=== PATIENT | female | born 1945 | race African-American/Black ===

== ENCOUNTER 2019-06-16 16:30 | Outpatient (CLI) | payer MEDICARE, SELFPAY ==
--- NOTE | ~2019-06-16 | XR_ITS ---
EXAMINATION: XR hand RT min 3V, XR wrist RT min 3V EXAM DATE: 06/16/2019 17:15 (accession [id number]), 06/16/2019 17:16 (accession [id number]) INDICATION: No known recent injury provided at this time. Pain of the right hand. TECHNIQUE: Right hand frontal, lateral and oblique projections obtained and reviewed. Right wrist fro ntal, frontal with ulnar deviation, oblique and lateral projections obtained and reviewed. Comparison is made to prior examination from 10/19/2017. FINDINGS: Right metacarpal bones are unremarkable. Right wrist scapholunate joint space is maintain ed. There is mild to moderate first carpometacarpal primary osteoarthritis. Mild osteoarthritis at t he radiocarpal, interphalangeal joints. There are no acute fractures or dislocations identified. The re is no subcutaneous gas. The soft tissue is unremarkable. There are no radiopaque foreign bodies . Difficult to appreciate any significant interval change compared to 2018. IMPRESSION: Polyarticular right hand and wrist osteoarthritis, most advanced at the first carpometaca rpal joint. Reviewed, dictated and finalized at location A. IMPRESSION: Polyarticular right hand and wrist osteoarthritis, most advanced at the first carpometacarpal joint.
--- NOTE | ~2019-06-16 | XR_ITS ---
EXAMINATION: XR lumbar spine 2-3V EXAM DATE: 06/16/2019 17:15 INDICATION: Dorsalgia, history osteoarthritis. TECHNIQUE: Lumber spine frontal, lateral, lateral L5-S1 projections for interpretation. Comparison is made to prior examination from 11/10/2013. FINDINGS: There is 3 mm anterolisthesis L4 on L5 with mild to moderate loss of all mid lumbar verteb ral body heights. There is moderate loss at L1-2 and L5-S1. There is moderate lumbar facet arthropath y. Sacrum, sacroiliac joints, sacral arcuate lines are intact. Right hip replacement. Vertebral body heights relatively well-maintained. Paraspinal soft tissue is unremarkable. Compared to 2013, there has been some interval progression in disc disease and facet arthropathy. The grade 1 anterolisthesis L4 on L5 is unchanged. IMPRESSION: 1. Moderate lumbar spondylosis. Reviewed, dictated and finalized at location A.
--- NOTE | ~2019-06-16 | XR_ITS ---
EXAMINATION: XR shoulder RT min 2V EXAM DATE: 06/16/2019 17:15 INDICATION: No known recent injury provided at this time. Pain of the right shoulder. TECHNIQUE: The following right shoulder projections obtained: frontal projection with internal rotati on, frontal projection with external rotation, Grashey, and scapular Y view (4+ views). There is no prior study for comparison. FINDINGS: There is approximately 1 cm ossific density identified between the acromion and the marixa l head, could be sizable joint body or congenital acromial variant, ossicle. There is moderate glenoh umeral and acromioclavicular primary osteoarthritis. There are no acute fractures or dislocations gabriela ntified. There is no subcutaneous gas. There are no radiopaque foreign bodies. IMPRESSION: 1. Moderate right shoulder osteoarthritis. 2. 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 Reviewed, dictated and finalized at location A.
== END 2019-06-16 16:31 | disposition home or self-care (01) ==
LOC: ANHIMG 16:43
PROVIDERS: PCP Internal Medicine; Visit Provider Internal Medicine
DX: M79.643 Pain in unspecified hand (principal); M54.9 Dorsalgia, unspecified; M25.511 Pain in right shoulder; M25.539 Pain in unspecified wrist; M47.816 Spondylosis without myelopathy or radiculopathy, lumbar region; M19.011 Primary osteoarthritis, right shoulder; M19.041 Primary osteoarthritis, right hand
CPT/HCPCS: 72100; 73030; 73110; 73130

== ENCOUNTER 2019-10-12 11:00 | Outpatient (RCR) | payer MEDICARE, SELFPAY ==
--- NOTE | 2019-10-05 15:07 | PTOPEVAL ---
Thank you for referring Tereza Jerome to [facility].? The patient is scheduled to be seen for therapy? 1 x/week for 4 weeks. Please review, sign, date and return this plan of care BAILEY. I agree with and certify that the following plan of care is medically necessary. Referring Physician Date Admitting Provider: Attending Provider: Stevenson Grullon MD Referring Provider: *PT Outpatient Evaluation Start: 10/05/19 14:08 Freq: Status: Active Protocol: Document 10/05/19 14:08 [facility] (Rec: 10/05/19 14:49 [facility] [id number]) Therapy Assessment Status Assessment Status Assessment Status Evaluation Outpatient Past Medical History Past Medical History No Past Medical/Surgical History Patient/Family Denies Significant Past Medical/ Surgical History Evaluation Information Problem Diagnosis Bilateral shoulder OA Onset 2019 Additional Evaluation Detail Pt has difficulty gripping, performing supply chain manager, carrying, participating in recreational and social activities. Pt is unable to wash her back. Reports sleep disruptions secondary to pain. Subjective Information Has had pain on and off for Query Text:As Reported By Patient/ years in B shoulders however, Family recenlty her pain has increased over the past year. Has also had numbness and tingling of B UEs and R hand pain for a few years. Had injections in B shoulders one year ago by Dr. Juares which helps for a few months. Pt had to switch doctors for insurance and had a R shoulder injection [address] Grullon ; R shoulder and hand feels better. L > R. Reports numbness and tingling in B arms/hands that comes and goes . Takes Rinvoq for OA; hydrocodone and tylenol for pain relief. 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 States she will try her best to make
--- NOTE | 2019-10-12 11:50 | PCPTNOTE ---
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 Patient is unable to continue physical therapy due to caregiver responsibilities for her , financial reasons, as well as her sister recently breaking her leg. Patient reports todays visit will be her last visit due to above stated reasons. Patient has not returned for any further treatments since 10/12/2019, therefore she will be discharged at this time. Patient?s initial visit was on 10/05/2019 14:00 and she had a total of 2 visits. The goals have not been met. Thank you for referring this patient to [facility]. Please review, sign, date and return this discharge summary BAILEY. I have been updated about the patient's current status and I agree with discharge from the above service at this time. Referring Physician Date
== END 2019-10-19 07:54 | disposition home or self-care (01) ==
LOC: ANHPT 11:00
PROVIDERS: Visit Provider Orthopaedic Surgery
DX: M19.011 Primary osteoarthritis, right shoulder (principal); M19.012 Primary osteoarthritis, left shoulder
CPT/HCPCS: 97110; 97140; 97161

== ENCOUNTER 2019-10-20 09:23 | Outpatient (CLI) | payer MEDICARE, SELFPAY ==
--- NOTE | ~2019-10-20 | MM_ITS ---
EXAMINATION: MM screening [facility] BI w [facility]nor HISTORY: Screening mammogram TECHNIQUE: Craniocaudal and mediolateral oblique 3-D tomosynthesis images were obtained and synthetic 2-D images were generated. CAD analysis was submitted and interpreted. COMPARISON: 12/24/2018, 11/03/2016, 01/26/2013 BREAST PARENCHYMAL COMPOSITION: There are scattered areas of fibroglandular density. FINDINGS: There is no evidence of suspicious mass, calcification, or architectural distortion to sugg est malignancy in either breast. There has been no suspicious interval change. IMPRESSION: 1. No mammographic evidence of malignancy. 2. Recommend routine screening mammography in one year. BI-RADS Category 1: Negative Reviewed, dictated and finalized at location A.
--- NOTE | ~2019-10-20 | US_ITS ---
EXAMINATION: US axilla BI DATE: 10/20/2019 11:12 INDICATION: Local swelling, mass and lump at the bilateral axilla. TECHNIQUE: Multiple grayscale and Doppler ultrasound images of the left and right axilla were obtaine d. COMPARISON: None FINDINGS: No abnormal masses, fluid collections or lymphadenopathy identified at the right axilla. At the left axilla there is a 1.6 x 0.9 x 1.6 cm hypoechoic mass with posterior acoustic enhancement and without internal vascular flow on color Doppler. The mass is situated in the dermal fat within 1 mm of the sk in surface. IMPRESSION: 1. Normal ultrasound of the right axilla. 2. 1.6 cm mass at the left axilla within 1 mm of the skin surface. Location and appearance would favo r an epidermal cyst. Differential would include solid neoplasm however there is no evident internal v ascular flow on color Doppler to more specifically suggest this. Reviewed, dictated and finalized at location A. IMPRESSION: 1. Normal ultrasound of the right axilla. 2. 1.6 cm mass at the left axilla within 1 mm of the skin surface. Location and appearance would favor an epidermal cyst. Differential would include solid iram plasm however there is no evident internal vascular flow on color Doppler to mo re specifically suggest this.
== END 2019-10-20 09:24 | disposition home or self-care (01) ==
PROVIDERS: Visit Provider Nurse Practitioner
DX: Z12.31 Encounter for screening mammogram for malignant neoplasm of breast (principal); R22.33 Localized swelling, mass and lump, upper limb, bilateral
CPT/HCPCS: 76882; 77063; 77067

== ENCOUNTER 2019-11-01 07:29 | Outpatient (CLI) | payer MEDICARE, SELFPAY ==
[2019-11-01 17:02] LABS: SARS-CoV-2 RNA PCR Negative
== END 2019-11-01 07:30 | disposition home or self-care (01) ==
LOC: ANHCOVIDDT 07:29
PROVIDERS: Visit Provider Internal Medicine Gastroenterology
DX: Z01.812 Encounter for preprocedural laboratory examination (principal); Z20.828 Contact with and (suspected) exposure to other viral communicable diseases
CPT/HCPCS: 87635; C9803; U0003

== ENCOUNTER 2019-11-02 00:38 | Day surgery (SDC) | payer MEDICARE, SELFPAY ==
[2019-10-25 14:57] VITALS: BMI 35.9
[2019-11-02 07:02] VITALS: BP 125/62; PULSE 104; RESP 18; TEMP 35.9; O2SAT 98; BMI 36.8
--- NOTE | 2019-11-02 07:18 | WPDANESEPPF ---
Anes - Initial Pre Proc Eval Procedure: Operation Date: 11/02/19 08:00 Proposed Procedures p Colonoscopy - Zen Bai MD Date/Time: 11/02/19 07:18 Surgeon: Zen Bai MD Pre Op Diagnosis: diarrhea, family hx colon CA Patient Data Age: 74 Gender: F Height: 5 ft 3 in Weight: 92 kg Allergies Allergy/AdvReac Type Severity Reaction Status Date / Time erythromycin base Allergy Unknown Diarrhea Verified 10/25/19 14:49 Penicillins Allergy Unknown Rash Verified 10/25/19 14:49 Home Medications Medication Instructions Recorded Confirmed Type acetaminophen [Tylenol] 325 mg PO DAILY PRN 01/04/19 10/25/19 History folic acid 1 mg PO DAILY 01/04/19 10/25/19 History ondansetron HCl [Zofran] 4 mg PO Q6H PRN 01/04/19 10/25/19 History promethazine [Phenergan] 25 mg IM Q6H PRN 01/04/19 10/25/19 History vitamin B complex [B 1 tablet PO DAILY 01/04/19 10/25/19 History Complex-Vitamin B12] furosemide 40 mg tablet 40 mg PO DAILY #90 tablet 03/29/19 10/25/19 Rx losartan 100 mg tablet 100 mg PO DAILY #90 tablet 03/29/19 10/25/19 Rx levothyroxine 100 mcg tablet See Rx Instructions .ROUTE 07/06/19 10/25/19 Rx .COMPLEX #90 tablet trazodone 100 mg tablet 100 mg PO HS PRN #120 tablet 07/22/19 10/25/19 Rx leflunomide 20 mg tablet 20 mg PO DAILY #90 tablet 07/29/19 10/25/19 Rx pregabalin 100 mg capsule 100 mg PO BID #180 cap 08/05/19 10/25/19 Rx metformin 1,000 mg tablet 1,000 mg PO BID #180 tablet 08/25/19 10/25/19 Rx duloxetine 60 mg capsule,delayed See Rx Instructions .ROUTE 09/05/19 10/25/19 Rx release .COMPLEX #60 each omega-3 fatty acids 1,000 mg 1,000 mg PO DAILY #90 cap 09/27/19 10/25/19 Rx capsule potassium chloride 10 mEq See Rx Instructions .ROUTE 10/10/19 10/25/19 Rx tablet,extended release .COMPLEX #90 tablet hydrocodone 5 mg-acetaminophen 325 1 tablet PO TID PRN #60 tablet 10/21/19 10/25/19 Rx mg tablet atorvastatin 10 mg tablet 10 mg PO DAILY #90 tablet 10/25/19 Rx dapagliflozin [Farxiga] 5 mg PO DAILY 10/25/19 10/25/19 History ferrous sulfate 325 mg PO TID 10/25/19 10/25/19 History upadacitinib [Rinvoq] 15 mg PO DAILY 10/25/19 10/25/19 History alprazolam 0.5 mg tablet 0.5 mg PO BID PRN #60 tablet 10/27/19 Rx Patient hx anesthesia problems: none Family hx anesthesia problems: none PMFSH Past Medical History Medical History Adhesive capsulitis of right shoulder Anemia Anxiety Arthritis Bilateral shoulder pain Bilateral shoulder region arthritis BMI 38.0-38.9,adult Depression Diabetes a1c=6.9 (04/05/19) Fibromyalgia Gastric ulcer without hemorrhage or perforation Generalized osteoarthritis of multiple sites Hemoglobin A1c less than 7.0% 6.9 on 04/05/19 Hypertension Lumbar and sacral arthritis Mass of both axillae Osteoarthritis of left knee Screening for breast cancer Seronegative rheumatoid arthritis of both hands Stroke Surgical History Surgical History H/O cataract extraction H/O elbow surgery H/O: hysterectomy History of carpal tunnel release History of hip replacement 03/2018 History of knee surgery 12/2013 Dr. Peña Hx of cholecystectomy Family History Family History Father Hypertension Family history of diabetes mellitus in first degree relative Mother Hypertension Other Diabetes mellitus Family history of cardiovascular disease Family history of malignant neoplasm Social History Social History Smoking status: Former smoker Smoking end date: 02/23/86 Alcohol intake: current Substance use type: does not use Living arrangements: with family Additional living arrangements comments: Sexual Orientation (if Verbalized by the Patient): Straight or Heterosexual Spiritual care concerns: No
[2019-11-02 07:19] LABS: Glucose Point of Care 149 (65-105)
[2019-11-02] MEDS: LACTATED RINGERS 1,000 ML 150 ML IV CONT (07:21)
--- NOTE | 2019-11-02 07:26 | PM.HPGS ---
History of Present Illness History of Present Illness Consent: Risks, benefits, and alternatives have been discussed and questions answered. Patient agrees to proceed with procedure. Chief complaint: diarrhea, family hx colon CA Narrative: Tereza Jerome is a 74 year old female here for investigation of persistent diarrhea. [facility] Past Medical History Medical History Adhesive capsulitis of right shoulder Anemia Anxiety Arthritis Bilateral shoulder pain Bilateral shoulder region arthritis BMI 38.0-38.9,adult Depression Diabetes a1c=6.9 (04/05/19) Fibromyalgia Gastric ulcer without hemorrhage or perforation Generalized osteoarthritis of multiple sites Hemoglobin A1c less than 7.0% 6.9 on 04/05/19 Hypertension Lumbar and sacral arthritis Mass of both axillae Osteoarthritis of left knee Screening for breast cancer Seronegative rheumatoid arthritis of both hands Stroke Surgical History Surgical History H/O cataract extraction H/O elbow surgery H/O: hysterectomy History of carpal tunnel release History of hip replacement 03/2018 History of knee surgery 12/2013 Dr. Peña Hx of cholecystectomy Family History Family History Father Hypertension Family history of diabetes mellitus in first degree relative Mother Hypertension Other Diabetes mellitus Family history of cardiovascular disease Family history of malignant neoplasm Social History Social History Smoking status: Former smoker Smoking end date: 02/23/86 Alcohol intake: current Substance use type: does not use Living arrangements: with family Additional living arrangements comments: Sexual Orientation (if Verbalized by the Patient): Straight or Heterosexual Spiritual care concerns: No Meds Home Medications and Allergies Home Medications Medication Instructions Recorded Confirmed Type acetaminophen [Tylenol] 325 mg PO DAILY PRN 01/04/19 10/25/19 History folic acid 1 mg PO DAILY 01/04/19 10/25/19 History ondansetron HCl [Zofran] 4 mg PO Q6H PRN 01/04/19 10/25/19 History promethazine [Phenergan] 25 mg IM Q6H PRN 01/04/19 10/25/19 History vitamin B complex [B 1 tablet PO DAILY 01/04/19 10/25/19 History Complex-Vitamin B12] furosemide 40 mg tablet 40 mg PO DAILY #90 tablet 03/29/19 10/25/19 Rx losartan 100 mg tablet 100 mg PO DAILY #90 tablet 03/29/19 10/25/19 Rx levothyroxine 100 mcg tablet See Rx Instructions .ROUTE 07/06/19 10/25/19 Rx .COMPLEX #90 tablet trazodone 100 mg tablet 100 mg PO HS PRN #120 tablet 07/22/19 10/25/19 Rx leflunomide 20 mg tablet 20 mg PO DAILY #90 tablet 07/29/19 10/25/19 Rx pregabalin 100 mg capsule 100 mg PO BID #180 cap 08/05/19 10/25/19 Rx metformin 1,000 mg tablet 1,000 mg PO BID #180 tablet 08/25/19 10/25/19 Rx duloxetine 60 mg capsule,delayed See Rx Instructions .ROUTE 09/05/19 10/25/19 Rx release .COMPLEX #60 each omega-3 fatty acids 1,000 mg 1,000 mg PO DAILY #90 cap 09/27/19 10/25/19 Rx capsule potassium chloride 10 mEq See Rx Instructions .ROUTE 10/10/19 10/25/19 Rx tablet,extended release .COMPLEX #90 tablet hydrocodone 5 mg-acetaminophen 325 1 tablet PO TID PRN #60 tablet 10/21/19 10/25/19 Rx mg tablet atorvastatin 10 mg tablet 10 mg PO DAILY #90 tablet 10/25/19 Rx dapagliflozin [Farxiga] 5 mg PO DAILY 10/25/19 10/25/19 History ferrous sulfate 325 mg PO TID 10/25/19 10/25/19 History upadacitinib [Rinvoq] 15 mg PO DAILY 10/25/19 10/25/19 History alprazolam 0.5 mg tablet 0.5 mg PO BID PRN #60 tablet 10/27/19 Rx Allergies Allergy/AdvReac Type Severity Reaction Status Date / Time erythromycin base Allergy Unknown Diarrhea Verified 10/25/19 14:49 Penicillins Allergy Unknown Rash Verified 10/25/19 14:49 Vital Signs Vital Signs - 24
[2019-11-02 08:10] VITALS: BP 101/62; PULSE 83; RESP 17; O2SAT 95
[2019-11-02 08:20] VITALS: BP 98/58; PULSE 81; RESP 25; O2SAT 98
[2019-11-02 08:30] VITALS: BP 110/66; PULSE 84; RESP 17; O2SAT 98
== END 2019-11-02 08:59 | disposition home or self-care (01) ==
PROVIDERS: Visit Provider Internal Medicine Gastroenterology
PROC: 0DJD8ZZ Inspection of Lower Intestinal Tract, Via Natural or Artificial Opening Endoscopic (ICD-10-PCS; CPT 45378; principal; 2019-11-02 08:00)
DX: Z12.11 Encounter for screening for malignant neoplasm of colon (principal); K57.30 Diverticulosis of large intestine without perforation or abscess without bleeding; Z80.0 Family history of malignant neoplasm of digestive organs; I10 Essential (primary) hypertension; E11.9 Type 2 diabetes mellitus without complications; M79.7 Fibromyalgia; D64.9 Anemia, unspecified; F41.8 Other specified anxiety disorders; K27.9 Peptic ulcer, site unspecified, unspecified as acute or chronic, without hemorrhage or perforation; Z79.84 Long term (current) use of oral hypoglycemic drugs; Z87.891 Personal history of nicotine dependence; E66.9 Obesity, unspecified; Z68.36 Body mass index [BMI] 36.0-36.9, adult
CPT/HCPCS: G0105; J2704; J7120

== ENCOUNTER 2019-12-07 12:30 | Outpatient (RCR) | payer MEDICARE, SELFPAY ==
--- NOTE | 2019-11-07 14:06 | PTOPEVAL ---
Thank you for referring Tereza Jerome to [facility].? The patient is scheduled to be seen for therapy? 1 x/week for 6-8 weeks. Please review, sign, date and return this plan of care BAILEY. I agree with and certify that the following plan of care is medically necessary. Referring Physician Date Attending Provider: Stevenson Grullon MD Referring Provider: *PT Outpatient Evaluation Start: 11/07/19 12:41 Freq: Status: Active Protocol: Document 11/07/19 12:41 [facility] (Rec: 11/07/19 13:38 [facility] [id number]) Therapy Assessment Status Assessment Status Assessment Status Evaluation Outpatient Past Medical History Past Medical History Source of Past Medical History Patient,Recalled from Previous Visit, Confirmed with Patient /Family Neurological History Hx Cerebrovascular Accident (CVA) Yes: 2016- no residual Cardiovascular History Hx Hypercholesterolemia Yes Hx Hypertension Yes Respiratory History Hx Respiratory Disorders No Significant History Gastrointestinal History Hx Cholecystectomy Yes Hx Polyps Yes: colon Hx Ulcer Yes: gastric 2017 Genitourinary History Hx Genitourinary Disorders No Significant History Musculoskeletal History Hx Joint Replacement Yes: right knee 2007;right hip 2017 Hx Other Musculoskeletal Disorders Yes: shoulder pain Hematological History Hx Anemia Yes: stefani Endocrine History Hx Diabetes Yes Hx Hypothyroidism Yes HEENT History Hx Glaucoma Yes: eye drops Integumentary History Hx Skin Disorders No Significant History Reproductive History Hx Hysterectomy Yes Psychosocial History Hx Anxiety Yes Pain History Has Past Pain Affected Your Daily Life Yes History of Long-Term Prescription Pain Yes Medication Use (Opiates) Anesthesia History Hx Anesthesia Reactions No Significant History Other History Hx Implanted Device Yes: right total knee and right total hip Evaluation Information Problem Diagnosis back pain Onset years Cause primary caregiver of . Additional Evaluation Detail recently received therapy to address shoulder pain. Improved following an injections She wears a back brace with community walking, transfers and carrying for her or if the pain has increased. Subjective I
--- NOTE | 2019-12-07 15:05 | PTOPEVAL ---
Thank you for referring Tereza Jerome to [facility].? The patient is scheduled to be seen for therapy? 1 x/week for 4-6 weeks. Please review, sign, date and return this plan of care BAILEY. I agree with and certify that the following plan of care is medically necessary. Referring Physician Date Attending Provider: Stevenson Grullon MD Referring Provider: *PT Outpatient Evaluation Start: 11/07/19 12:41 Freq: Status: Active Protocol: Document 12/07/19 12:32 [facility] (Rec: 12/07/19 13:23 [facility] [id number]) Therapy Assessment Status Assessment Status Assessment Status Re-evaluation Evaluation Information Problem Diagnosis back pain Onset years Cause primary caregiver of . Additional Evaluation Detail recently received therapy to address shoulder pain. Improved following an injections She wears a back brace with community walking, transfers and carrying for her or if the pain has increased. She is the primary caregiver for her . Subjective Information REports the mechanical lift Query Text:As Reported By Patient/ for her has been fixed Family making transfers at home better. She has assistance during the day with care, but perform ADL's at night by herself. States she is performing her HEP especially the stretching. She has increased pain with prolonged standing > 15 min or prolonged sitting. She wakes at night due to pain. She cont to have increased pain with negotiating steps. She uses a cane intermittently based on pain and distance of the walking. She applies heat for the pain and use of pain medication to manage her pain at home. Pain Assessment Timing of Pain Assessment Timing of Pain Assessment Re-assessment Pain Scale Pain Scale Used Numeric (1 - 10) Self Report Pain Assessment Bilateral Lower Back Reported Pain Level 5 Pain Description Aching,Burning,Sharp,Tightness Pain Frequency
--- NOTE | 2020-01-11 12:41 | PCPTNOTE ---
Patient did not show up for scheduled appointment this date due to she forgot. Spoke with pt regarding her status, her exercise and DC skilled therapy services at this time.
--- NOTE | 2020-01-11 12:42 | PCPTNOTE ---
Admitting Provider: Attending Provider: Stevenson Grullon MD Patient:Tereza Jerome Date of :1945 Discharge Note Patient has not returned for any further treatments since 12/07/2019, therefore she will be discharged at this time. She had cancelled her follow-up visits due to being the primary caregiver for her . Patient?s initial visit was on 11/07/2019 12:30 and she had a total of 5 visits. The goals have been partially met. Thank you for referring this patient to [facility]. Please review, sign, date and return this discharge summary BAILEY. I have been updated about the patient's current status and I agree with discharge from the above service at this time. Referring Physician Date
== END 2020-01-12 08:48 | disposition home or self-care (01) ==
LOC: ANHPT 12:30
PROVIDERS: Visit Provider Orthopaedic Surgery
DX: M47.819 Spondylosis without myelopathy or radiculopathy, site unspecified (principal)
CPT/HCPCS: 97014; 97110; 97140; 97162; G0283

== ENCOUNTER → 2019-12-20 09:18 | Outpatient (REF) | payer MEDICARE, SELFPAY | LOC: ANHLAB 09:18 | PROVIDERS: PCP Internal Medicine; Visit Provider Nurse Practitioner | DX: L72.3 Sebaceous cyst (principal) | CPT/HCPCS: 88304 ==

== ENCOUNTER → 2020-03-02 09:54 | Outpatient (CLI) | payer MEDICARE, SELFPAY ==
--- NOTE | ~2020-03-02 | US_ITS ---
US renal BI 03/02/2020 10:28 Procedure: Realtime transabdominal ultrasound of the kidneys and bladder. Indication: Abnormal renal function Comparison: No prior studies for comparison. Findings: Renal echotexture is normal bilaterally without hydronephrosis, contour deforming mass or r enal calculus. The right kidney measures 9 cm and left kidney measures 8.7 cm. Bladder within normal limits. Impression: 1: Unremarkable renal ultrasound. No stones, masses or hydronephrosis. Reviewed, dictated and finalized at location A. OSOFT BI ARCHITECT Impression: 1: Unremarkable renal ultrasound. No stones, masses or hydronephrosis.
== END ==
PROVIDERS: PCP Internal Medicine; Visit Provider Internal Medicine Nephrology
DX: R94.4 Abnormal results of kidney function studies (principal); E11.29 Type 2 diabetes mellitus with other diabetic kidney complication; I12.9 Hypertensive chronic kidney disease with stage 1 through stage 4 chronic kidney disease, or unspecified chronic kidney disease; N18.9 Chronic kidney disease, unspecified
CPT/HCPCS: 76775

== ENCOUNTER → 2020-03-27 10:21 | Outpatient (CLI) | payer MEDICARE, SELFPAY ==
--- NOTE | ~2020-03-27 | MR_ITS ---
EXAMINATION: MR lumbar spine wo con DATE: 03/27/2020 10:53 INDICATION: Low back pain. TECHNIQUE: Magnetic resonance imaging (MRI) of the lumbar spine was performed without intravenous con trast. Sequences included sagittal T2-weighted FSE, sagittal T2-weighted FS FSE, sagittal T1-weighted FSE, and axial T2-weighted FSE. COMPARISON: Lumbar spine MRI 02/25/2017 FINDINGS: There is 10 degrees dextroscoliosis of thoracolumbar spine. There is 3 mm anterolisthesis o f L3 on L4 and L4 on L5. Vertebral body heights are normal. There is severely decreased disc height a t L1-L2, mildly decreased disc height at L2-L3, moderately decreased disc height at L3-L4, and mildly decreased disc height at L4-L5 and L5-S1. The distal spinal cord signal intensity is normal. The con us medullaris is at T12-L1. The following disc levels are specifically discussed: L1-L2: The disc is bulging and has an annular fissure. There is severe right and moderate left facet joint osteoarthritis. There is moderate bilateral neural foraminal stenosis. There is mild central ca nal stenosis. L2-L3: The disc is bulging with superimposed right central extrusion. There is severe bilateral facet joint osteoarthritis. There is mild bilateral neural foraminal stenosis. There is mild central canal stenosis. L3-L4: The disc is bulging and has an annular fissure. There is severe bilateral facet joint osteoart hritis. There is mild bilateral neural foraminal stenosis. There is mild central canal stenosis. L4-L5: The disc does not extend beyond the endplate margin. There is ankylosis of the facet joints wi th moderate hypertrophy. There is mild right neural foraminal stenosis. There is no central canal noemy nosis. L5-S1: The disc is bulging. There is severe right and moderate left facet joint osteoarthritis. There is mild bilateral neural foraminal stenosis. There is mild central canal stenosis. IMPRESSION: 1. Severe lumbar spondylosis, worsened from 02/25/2017. 2. Thoracolumbar dextroscoliosis. Reviewed, dictated and finalized at location A. P CUTTER
== END ==
PROVIDERS: Visit Provider Nurse Practitioner Family
DX: M47.896 Other spondylosis, lumbar region (principal)
CPT/HCPCS: 72148

== ENCOUNTER → 2020-04-05 09:07 | Outpatient (CLI) | payer MEDICARE, SELFPAY ==
--- NOTE | ~2020-04-05 | US_ITS ---
EXAMINATION: US soft tissue head and neck DATE: 04/05/2020 09:25 INDICATION: Generalized enlarged lymph nodes of the head and neck. TECHNIQUE: Multiple grayscale and Doppler ultrasound images of the neck were obtained. COMPARISON: Cervical spine MRI 12/20/2017 FINDINGS: There is no abnormal mass or lymphadenopathy in the right neck in the patient's area of con cern. IMPRESSION: 1. No abnormal mass or lymphadenopathy in the right neck in the patient's area of concern. Reviewed, dictated and finalized at location A. ER MACHINE OPERATOR
== END ==
PROVIDERS: PCP Internal Medicine; Visit Provider Nurse Practitioner
DX: R59.1 Generalized enlarged lymph nodes (principal)
CPT/HCPCS: 76536

== ENCOUNTER → 2020-06-05 10:55 | Outpatient (CLI) | payer MEDICARE, SELFPAY ==
--- NOTE | ~2020-06-05 | DEXA_ITS ---
Bone Density Report Name: Tereza Jerome Age: 75 Sex: Female Ethnicity: Black Date of : 1945 Indication: postmenopausal; screening for osteoporosis; parental hip fracture; height loss; hysterectomy; rheumatoid arthritis; Referring Provider: Gabrielle Renteria Study: Bone densitometry was performed. Exam Date: June 05, 2020 Accession number: [id number] Bone Density: Region BMD T-score Z-score Classification AP Spine (L3, L4) 1.047 -0.5 1.3 Normal Femoral Neck (Left) 0.700 -1.3 -0.2 Osteopenia Total Hip (Left) 0.905 -0.3 0.4 Normal World Health Organization criteria for BMD impression classify patients as: Normal (T-score at or above -1.0), Osteopenia (T-score between -1.0 and -2.5), or Osteoporosis (T-score at or below -2.5). 10-year Fracture Risk(1): Major Osteoporotic Fracture 8.6% Hip Fracture 3.5% Reported Risk Factors: [place] (Black), Neck BMD=0.700, BMI=39.9, parental fracture, rheumatoid arthritis (1) FRAX(R) Version 3.08. Fracture probability calculated for an untreated patient. Fracture probability may be lower if the patient has received treatment. Previous Exams: Region Exam Age BMD T-score BMD Change BMD Change Date g/cm2 vs Baseline vs Previous AP Spine(L3, L4) 06/05/2020 75 1.047 -0.5 -0.102* -0.102* 04/13/2015 70 1.149 0.4 Total Hip(Left) 06/05/2020 75 0.905 -0.3 -0.092* -0.092* 04/13/2015 70 0.997 0.4 *Denotes significance at 95% confidence level, LSC for AP Spine = 0.022 g/cm2, LSC for Total Hip = 0.027 g/cm2 Clinical Information Provided by Patient: Parent has had a hip fracture Has rheumatoid arthritis Has the following medical conditions: Hysterectomy Patient maximum height was 64 Menopause Age: 43 Does not regularly consume dairy products Drinks caffeinated beverages Onset of menses at age 12 Number of children 1 Impression: The patient has low bone mass, based on the Left Femoral Neck T-score. The patient has an estimated ten-year risk of hip fracture of 3.5% and an estimated ten-year risk of major fracture of 8.6%, based on the WHO FRAX algorithm. The patient has risk factors, including: parental hip fracture. The BMD for the AP Spine(L3, L4) decreased, changing by -0.102 since the last DXA exam. The BMD for the Total Hip(Left) decreased, changing by -0.092 since the last DXA exam. Discussion: BONE DENSITY IS LOW AT ONE OR MORE SKELETAL SITES. THE PATIENT'S BMD AND CLINICAL RISK FACTORS CONTRIBUTE TO THIS PATIENT'S INCREASED RISK OF FRACTURE.
== END ==
PROVIDERS: PCP Internal Medicine; Visit Provider Nurse Practitioner
DX: N95.9 Unspecified menopausal and perimenopausal disorder (principal); M85.852 Other specified disorders of bone density and structure, left thigh
CPT/HCPCS: 77080

== ENCOUNTER 2020-07-20 10:46 | Outpatient (CLI) | payer MEDICARE, SELFPAY ==
--- NOTE | ~2020-07-20 | US_ITS ---
EXAMINATION: US venous doppler UE DATE: 07/20/2020 11:31 INDICATION: Upper limb swelling. TECHNIQUE: Grayscale ultrasound images without and with compression and Doppler ultrasound images of the bilateral upper extremity veins were obtained. COMPARISON: None. FINDINGS: The visualized portions of the right internal jugular vein, subclavian vein, axillary vein, brachial veins, basilic vein, cephalic vein, radial vein, and ulnar vein are patent. The visualized portions of the left internal jugular vein, subclavian vein, axillary vein, brachial v eins, basilic vein, cephalic vein, radial vein, and ulnar vein are patent. IMPRESSION: 1. No deep venous thrombosis. Reviewed, dictated and finalized at location A.
== END 2020-07-20 10:47 | disposition home or self-care (01) ==
PROVIDERS: PCP Internal Medicine; Visit Provider Nurse Practitioner
DX: M79.89 Other specified soft tissue disorders (principal)
CPT/HCPCS: 93970

== ENCOUNTER → 2020-07-20 12:36 | Outpatient (CLI) | payer MEDICARE, SELFPAY ==
--- NOTE | ~2020-07-20 | XR_ITS ---
EXAMINATION:XR_CERV2-3V_CR DATE: 07/20/2020 13:06 INDICATION: Cervicalgia TECHNIQUE: AP, lateral, lateral swimmers and odontoid views of the cervical spine are provided. COMPARISON: 06/05/2017 FINDINGS: Alignment is normal. The odontoid is intact. No fracture is identified. The vertebral body heights are normal. There is mild loss of intervertebral disc space height at C5-6. There is moderate to severe multilevel facet and uncovertebral joint osteoarthritis. Prevertebral soft tissues are nor mal. IMPRESSION: 1. Moderate spondylosis without acute findings or significant interval change. Reviewed, dictated and finalized at location B.
--- NOTE | ~2020-07-20 | XR_ITS ---
EXAMINATION: XR shoulder RT min 2V DATE: 07/20/2020 13:07 INDICATION: Right shoulder pain. TECHNIQUE: 4 views of right shoulder were obtained. COMPARISON: Right shoulder radiographs 09/21/2019 FINDINGS: Bone alignment is normal. No fracture. There is severe osteoarthritis of acromioclavicular joint and glenohumeral joint. IMPRESSION: 1. Polyarticular osteoarthritis. Reviewed, dictated and finalized at location A.
== END ==
PROVIDERS: Visit Provider Nurse Practitioner
DX: M47.812 Spondylosis without myelopathy or radiculopathy, cervical region (principal); M19.011 Primary osteoarthritis, right shoulder
CPT/HCPCS: 72040; 73030

== ENCOUNTER 2020-08-03 10:02 | Outpatient (CLI) | payer MEDICARE, SELFPAY ==
--- NOTE | 2020-08-03 10:07 | EST_ITS ---
Patient Info Name: Tereza Jerome Age: 75 years : 1945 Gender: Female Ht: 63 in Wt: 215 lbs BSA: 2.13 m2 Exam Date: 08/03/2020 10:15 AM Exam Location: [facility] Stress Patient Status: Outpatient Admit Date: 08/03/2020 Staff Ordering Physician: Gabrielle Renteria Attending Provider: Gabrielle Renteria Exercise Technologist: Joleen Candelario RDCS Exercise Physician: Cayetano Garcia DO Exam Type: CA stress test treadmill Study Info Indications R00.2 - Palpitations A treadmill exercise stress test was performed. Summary 1. 1. Negative Bernardo exercise stress test for ischemic ST changes by ECG criteria. 2. 2. Poor functional capacity, achieving 4 METs of workload. 3. 3. Rapid HR response to exercise. 4. 4. Appropriate HR recovery at 1 minute post exercise. 5. 5. Baseline hypertension. 6. 6. No imaging with stress testing. 7. 7. Patient informed of the above results. Protocol: Bernardo Stress ECG Details Stage: REST Duration (min): 9 min : 8 sec Speed (mph): 0.0 Grade (%): 0 HR (bpm): 83 SBP (mmHg): 149 DBP (mmHg): 87 METS: --- Stage: REST Duration (min): 19 min : 8 sec Speed (mph): 0.0 Grade (%): 0 HR (bpm): 80 SBP (mmHg): 149 DBP (mmHg): 87 METS: --- Stage: STAGE 1 Duration (min): 1 min : 0 sec Speed (mph): 1.7 Grade (%): 10 HR (bpm): 114 SBP (mmHg): 149 DBP (mmHg): 87 METS: --- Stage: STAGE 1 Duration (min): 1 min : 40 sec Speed (mph): 1.7 Grade (%): 10 HR (bpm): 129 SBP (mmHg): 149 DBP (mmHg): 87 METS: --- Stage: RECOVERY Duration (min): 0 min : 19 sec Speed (mph): 0.0 Grade (%): 0 HR (bpm): 134 SBP (mmHg): 149 DBP (mmHg): 87 METS: --- Stage: RECOVERY Duration (min): 1 min : 19 sec Speed (mph): 0.0 Grade (%): 0 HR (bpm): 124 SBP (mmHg): 149 DBP (mmHg): 87 METS: --- Stage: RECOVERY Duration (min): 2 min : 19 sec Speed (mph): 0.0 Grade (%): 0 HR (bpm): 85 SBP (mmHg): 149 DBP (mmHg): 87 METS: --- Stage: RECOVERY Duration (min): 3 min : 19 sec Speed (mph): 0.0 Grade (%): 0 HR (bpm): 78 SBP (mmHg): 189 DBP (mmHg): 79 METS: --- Stage: RECOVERY Duration (min): 4 min : 19 sec Speed (mph): 0.0 Grade (%): 0 HR (bpm): 91 SBP (mmHg): 189 DBP (mmHg): 79 METS: --- Stage: RECOVERY Duration (min): 5 min : 19 sec Speed (mph): 0.0 Grade (%): 0 HR (bpm): 102 SBP (mmHg): 188 DBP (mmHg): 82 METS: --- Stage: RECOVERY Duration (min): 6 min : 19 sec Speed (mph): 0.0 Grade (%): 0 HR (bpm): 89 SBP (mmHg): 188 DBP (mmHg): 82 METS: --- Stage: RECOVERY Duration (min): 7 min : 19 sec Speed (mph): 0.0 Grade (%): 0 HR (bpm): 86 SBP (mmHg): 183 DBP (mmHg): 77 METS: --- Stage: RECOVERY Duration (min): 8 min
--- NOTE | 2020-08-07 15:51 | WPDHOLTEREM ---
Holter/Event Monitor Holter/Event Monitor Date of procedure: 08/03/20 Procedure Type: 48 hour holter monitor Indications: Palpitations Conclusion: 1. 48 hour holter monitor on 08/03/20. 2. Underlying rhythm is sinus rhythm. HR range 63-129 bpm; average HR 91 bpm. 3. There are 22 premature supraventricular complexes. No supraventricular tachycardia. 4. There are 2,624 premature ventricular complexes, 9 ventricular bigeminy and 9 ventricular trigeminy. No ventricular tachycardia. 5. No sinoatrial or atrioventricular blocks. No significant pauses greater than 2 seconds. 6. Patient reports symptom of palpitations which demonstrate sinus rhythm at 98 bpm.
== END 2020-08-03 10:03 | disposition home or self-care (01) ==
PROVIDERS: PCP Internal Medicine; Visit Provider Nurse Practitioner
DX: R00.2 Palpitations (principal); I10 Essential (primary) hypertension
CPT/HCPCS: 93017; 93225; 93226

== ENCOUNTER 2020-09-10 01:52 | Day surgery (SDC) | payer MEDICARE, SELFPAY ==
[2020-08-30 08:43] VITALS: BMI 37.0
[2020-09-10 11:49] VITALS: BP 143/78; PULSE 98; RESP 18; TEMP 36.1; O2SAT 94
--- NOTE | 2020-09-10 11:58 | WPDANESEPPF ---
Anes - Initial Pre Proc Eval Procedure: Operation Date: 09/10/20 12:00 Proposed Procedures p Esophagogastroduodenoscopy & Screening Colonoscopy - Zen Bai MD Date/Time: 09/10/20 11:58 Surgeon: Zen Bai MD Pre Op Diagnosis: nausea, family hx of colon ca Patient Data Age: 75 Gender: F Height: 1.6 m Weight: 95.5 kg Last Vital Signs Temp 96.9 F L 09/10/20 11:49 Pulse 98 09/10/20 11:49 Resp 18 09/10/20 11:49 BP 143/78 H 09/10/20 11:49 Pulse Ox 94 09/10/20 11:49 Allergies Allergy/AdvReac Type Severity Reaction Status Date / Time erythromycin base Allergy Unknown Diarrhea Verified 09/10/20 11:47 Penicillins Allergy Unknown Rash Verified 09/10/20 11:47 Home Medications Medication Instructions Recorded Confirmed Type vitamin B complex [B 1 tablet PO BID 01/04/19 08/30/20 History Complex-Vitamin B12] Rinvoq 15 mg PO DAILY 10/25/19 08/30/20 History ferrous sulfate 325 mg PO TID 10/25/19 08/30/20 History pregabalin 100 mg capsule 100 mg PO BID #180 cap 02/08/20 08/30/20 Rx blood-glucose meter #1 ea 02/21/20 08/23/20 Rx folic acid 1 mg tablet 1 mg PO DAILY #90 tablet 03/29/20 08/30/20 Rx furosemide 40 mg tablet 40 mg PO DAILY #90 tablet 03/29/20 08/30/20 Rx leflunomide 20 mg tablet 20 mg PO DAILY #90 tablet 05/01/20 08/30/20 Rx atorvastatin 10 mg tablet 10 mg PO DAILY #90 tablet 05/09/20 08/30/20 Rx calcium carbonate 500 mg calcium 500 mg PO DAILY #90 tablet 06/06/20 08/30/20 Rx (1,250 mg) tablet cholecalciferol (vitamin D3) 50 50 mcg PO DAILY #90 tablet 06/06/20 08/30/20 Rx mcg (2,000 unit) tablet alendronate 70 mg tablet 70 mg PO WEEKLY #12 tablet 06/07/20 08/30/20 Rx alprazolam 0.5 mg tablet 0.5 mg PO BID PRN #60 tablet 07/09/20 08/30/20 Rx metoprolol succinate 25 mg 25 mg PO DAILY #90 tablet 08/14/20 08/30/20 Rx tablet,extended release 24 hr hydrocodone 5 mg-acetaminophen 325 1 tablet PO TID PRN #60 tablet 08/22/20 08/30/20 Rx mg tablet blood sugar diagnostic #180 ea 08/23/20 Rx aspirin [Adult Low Dose Aspirin] 81 mg PO DAILY 08/30/20 08/30/20 History dapagliflozin [Farxiga] 20 mg PO DAILY 08/30/20 08/30/20 History duloxetine 60 mg PO BID 08/30/20 08/30/20 History bdeal-[id number]-vgf-nufhnr 1 cap PO DAILY 08/30/20 08/30/20 History [krill oil] levothyroxine [Euthyrox] 100 mcg PO DAILY 08/30/20 08/30/20 History losartan 100 mg PO DAILY 08/30/20 08/30/20 History omeprazole 40 mg capsule,delayed 40 mg PO BID #180 cap 08/30/20 Rx release potassium chloride 10 meq PO DAILY 08/30/20 08/30/20 History trazodone 100 mg PO HS PRN 08/30/20 08/30/20 History Patient hx anesthesia problems: none Family hx anesthesia problems: none PMFSH Past Medical History Medical History Adhesive capsulitis of right shoulder Anemia Anxiety Arthritis Bilateral hand pain Bilateral shoulder pain Bilateral shoulder region arthritis BMI 38.0-38.9,adult Depression Diabetes a1c=6.9 (04/05/19) Fibromyalgia (~2009) Gastric ulcer without hemorrhage or perforation Generalized osteoarthritis of multiple sites (~2009) Hemoglobin A1c less than 7.0% 6.9 on 04/05/19 Hypertension Lumbar and sacral arthritis Mass of both axillae Osteoarthritis of left knee Renal insufficiency Screening for breast cancer Seronegative rheumatoid arthritis of both hands (~2014) Stroke Surgical History Surgical History H/O cataract extraction H/O elbow surgery H/O: hysterectomy History of carpal tunnel release History of hip replacement 03/2018 History of knee surgery 12/2013 Dr. Peña Hx of cholecystectomy Family History Family History Father Hypertension Family history of diabetes mellitus in first degree relative Mother Hypertension Other Diabetes mellitus Family history of cardiovascular disease Family histor
[2020-09-10] MEDS: LACTATED RINGERS 1,000 ML 150 ML IV CONT (12:02)
[2020-09-10 12:09] LABS: Glucose Point of Care 211 mg/dl (65-105)
--- NOTE | 2020-09-10 12:33 | PM.HPGS ---
History of Present Illness History of Present Illness Consent: Risks, benefits, and alternatives have been discussed and questions answered. Patient agrees to proceed with procedure. Chief complaint: nausea, family hx of colon ca Narrative: Tereza Jerome is a 75 year old female who is suffering from persistent chronic nausea. He she has a history of ulcers and gastritis. Lately she needs to take Zofran at least once a day. She also has had a change in bowel habits. This, along with her family history of colon cancer, has her concerned. Review of Systems Review of Systems: All systems reviewed & are unremarkable except as noted in HPI and below PMFSH Past Medical History Medical History Adhesive capsulitis of right shoulder Anemia Anxiety Arthritis Bilateral hand pain Bilateral shoulder pain Bilateral shoulder region arthritis BMI 38.0-38.9,adult Depression Diabetes a1c=6.9 (04/05/19) Fibromyalgia (~2009) Gastric ulcer without hemorrhage or perforation Generalized osteoarthritis of multiple sites (~2009) Hemoglobin A1c less than 7.0% 6.9 on 04/05/19 Hypertension Lumbar and sacral arthritis Mass of both axillae Osteoarthritis of left knee Renal insufficiency Screening for breast cancer Seronegative rheumatoid arthritis of both hands (~2014) Stroke Surgical History Surgical History H/O cataract extraction H/O elbow surgery H/O: hysterectomy History of carpal tunnel release History of hip replacement 03/2018 History of knee surgery 12/2013 Dr. Peña Hx of cholecystectomy Family History Family History Father Hypertension Family history of diabetes mellitus in first degree relative Mother Hypertension Other Diabetes mellitus Family history of cardiovascular disease Family history of malignant neoplasm Social History Social History Smoking status: Former smoker Tobacco type: cigarettes Smoking end date: 02/23/86 Alcohol intake: former Alcohol use details: occasional Substance use type: does not use Living arrangements: with family Additional living arrangements comments: Spiritual care concerns: No Meds Home Medications and Allergies Home Medications Medication Instructions Recorded Confirmed Type vitamin B complex [B 1 tablet PO BID 01/04/19 08/30/20 History Complex-Vitamin B12] Rinvoq 15 mg PO DAILY 10/25/19 08/30/20 History ferrous sulfate 325 mg PO TID 10/25/19 08/30/20 History pregabalin 100 mg capsule 100 mg PO BID #180 cap 02/08/20 08/30/20 Rx blood-glucose meter #1 ea 02/21/20 08/23/20 Rx folic acid 1 mg tablet 1 mg PO DAILY #90 tablet 03/29/20 08/30/20 Rx furosemide 40 mg tablet 40 mg PO DAILY #90 tablet 03/29/20 08/30/20 Rx leflunomide 20 mg tablet 20 mg PO DAILY #90 tablet 05/01/20 08/30/20 Rx atorvastatin 10 mg tablet 10 mg PO DAILY #90 tablet 05/09/20 08/30/20 Rx calcium carbonate 500 mg calcium 500 mg PO DAILY #90 tablet 06/06/20 08/30/20 Rx (1,250 mg) tablet cholecalciferol (vitamin D3) 50 50 mcg PO DAILY #90 tablet 06/06/20 08/30/20 Rx mcg (2,000 unit) tablet alendronate 70 mg tablet 70 mg PO WEEKLY #12 tablet 06/07/20 08/30/20 Rx alprazolam 0.5 mg tablet 0.5 mg PO BID PRN #60 tablet 07/09/20 08/30/20 Rx metoprolol succinate 25 mg 25 mg PO DAILY #90 tablet 08/14/20 08/30/20 Rx tablet,extended release 24 hr hydrocodone 5 mg-acetaminophen 325 1 tablet PO TID PRN #60 tablet 08/22/20 08/30/20 Rx mg tablet blood sugar diagnostic #180 ea 08/23/20 Rx aspirin [Adult Low Dose Aspirin] 81 mg PO DAILY 08/30/20 08/30/20 History dapagliflozin [Farxiga] 20 mg PO DAILY 08/30/20 08/30/20 History duloxetine 60 mg PO BID 08/30/20 08/30/20 History ezapb-bygzq-4-juj-cup-uhdpfh 1 cap PO DAILY 08/30/20 08/30/20 History [
[2020-09-10 13:04] VITALS: BP 80/46; PULSE 79; RESP 17; O2SAT 98
[2020-09-10 13:14] VITALS: BP 94/54; PULSE 87; RESP 23; O2SAT 94
[2020-09-10 13:24] VITALS: BP 127/66; PULSE 82; RESP 26; O2SAT 98
== END 2020-09-10 13:50 | disposition home or self-care (01) ==
PROVIDERS: PCP Internal Medicine; Visit Provider Internal Medicine Gastroenterology
PROC: 0DJ08ZZ Inspection of Upper Intestinal Tract, Via Natural or Artificial Opening Endoscopic (ICD-10-PCS; CPT 43235; principal; 2020-09-10 12:00)
DX: R11.0 Nausea (principal); K29.70 Gastritis, unspecified, without bleeding; R19.4 Change in bowel habit; K64.8 Other hemorrhoids; K57.30 Diverticulosis of large intestine without perforation or abscess without bleeding; Z80.0 Family history of malignant neoplasm of digestive organs; M75.01 Adhesive capsulitis of right shoulder; F41.9 Anxiety disorder, unspecified; M19.012 Primary osteoarthritis, left shoulder; M19.011 Primary osteoarthritis, right shoulder; F32.9 Major depressive disorder, single episode, unspecified; E11.9 Type 2 diabetes mellitus without complications; M79.7 Fibromyalgia; Z87.11 Personal history of peptic ulcer disease; I10 Essential (primary) hypertension; M47.817 Spondylosis without myelopathy or radiculopathy, lumbosacral region; M17.12 Unilateral primary osteoarthritis, left knee; M06.042 Rheumatoid arthritis without rheumatoid factor, left hand; M06.041 Rheumatoid arthritis without rheumatoid factor, right hand; Z86.73 Personal history of transient ischemic attack (TIA), and cerebral infarction without residual deficits; Z98.49 Cataract extraction status, unspecified eye; Z90.710 Acquired absence of both cervix and uterus; Z96.649 Presence of unspecified artificial hip joint; Z90.49 Acquired absence of other specified parts of digestive tract; Z87.891 Personal history of nicotine dependence
CPT/HCPCS: 43239; 45378; 82948; 87081; J2704; J7120

== ENCOUNTER → 2020-10-03 07:39 | Outpatient (CLI) | payer MEDICARE, SELFPAY ==
--- NOTE | 2020-10-29 23:18 | WPDSLEEPSTUD ---
Sleep Study Date of Study: 10/03/20 Ordering Provider: Cayetano Garcia DO Interpreting Physician: Anne Carr MD Sleep Study Type: Split Polysomnogram Height: 1.6 m Weight: 95.254 kg Body Mass Index: 37.2 Neck Circumference (inches): 16.5 [place]: 5 Reason for Sleep Study history of obstructive sleep apnea, used CPAP in the past Sleep History Tereza Jerome is a 75 year old female with history of sleep apnea, has used CPAP, quit about 8 years ago; she now has palpitations at night. She occasionally awakens from sleep feeling short of breath, occasionally awakens at night with heartburn, belching or coughing. She constantly snores loudly. She occasionally has trouble sleeping with a cold. She does not wake up gasping for breath at night. She occasionally has breathing problems at night observed by others. She rarely sweats excessively at night. She occasionally notices her heart pounding or beating irregularly night. She rarely falls asleep during the day, rarely falls asleep involuntarily but never falls asleep while driving. She occasionally has loss of muscle tone with strong emotion. She does not have daytime difficulties due to excessive sleepiness or feel paralyzed on waking or falling asleep. She rarely has vivid dreamlike scenes upon awakening or falling asleep. She does not feel afraid sleep. No nightmares. Rarely remembers her dreams. Frequently has racing thoughts, feelings of sadness, depression, anxiety, frequently has muscular tension and notices parts of her body jerking. She never kicks at night. She frequently has crawly and achy feelings in her legs at night, no leg pain during the night and no morning jaw pain. she constantly is bothered by pain during the day and awakened by pain at night. She wakes up feeling Normal bedtime 11:30 p.m. falling asleep in a few minutes waking 3 times at night to watch television. She may stay awake 30 minutes to an hour. She wakes the morning 7:30 a.m. same schedule on the weekends. She does not take naps. She is drowsy in the morning for a while. She feels better in the evening compared to other times of day. Habits: no tobacco 20 years. Caffeine 2 cans COKE a day. No alcohol or recreational drugs. [facility] Past Medical History Medical History Adhesive capsulitis of right shoulder Anemia Anxiety Arthritis Bilateral hand pain Bilateral shoulder pain Bilateral shoulder region arthritis BMI 38.0-38.9,adult Depression Diabetes a1c=6.9 (04/05/19) Fibromyalgia (~2009) Gastric ulcer without hemorrhage or perforation Generalized osteoarthritis of multiple sites (~2009) Hemoglobin A1c less than 7.0% 6.9 on 04/05/19 Hypertension Lumbar and sacral arthritis Mass of both axillae Osteoarthritis of left knee Renal insufficiency Screening for breast cancer Seronegative rheumatoid arthritis of both hands (~2014) Stroke Surgical History Surgical History H/O cataract extraction H/O elbow surgery H/O: hysterectomy History of carpal tunnel release History of hip replacement 03/2018 History of knee surgery 12/2013 Dr. Peña Hx of cholecystectomy Family History Family History Father Hypertension Family history of diabetes mellitus in first degree relative Mother Hypertension Other Diabetes mellitus Family history of cardiovascular disease Family history of malignant neoplasm Social History Social History Smoking status: Never smoker Tobacco type: cigarettes Smoking end date: 02/23/86 Alcohol intake: former Alcohol use details: occasional Substance use type: does not use Additional living arrangements comments: Sexual Orientation (if Verbalized by the Patient): Straight or Heterosexual Spiritual
[2020-10-29 23:59] VITALS: BMI 37.2
== END ==
PROVIDERS: PCP Internal Medicine; Visit Provider Internal Medicine Cardiovascular Disease
DX: G47.33 Obstructive sleep apnea (adult) (pediatric) (principal); Z68.37 Body mass index [BMI] 37.0-37.9, adult
CPT/HCPCS: 95811

== ENCOUNTER 2020-10-04 13:41 | Outpatient (CLI) | payer MEDICARE, SELFPAY ==
--- NOTE | 2020-10-04 13:55 | ECHO_ITS ---
Patient Info Name: Tereza Jerome Age: 75 years : 1945 Gender: Female Ht: 63 in Wt: 210 lbs BSA: 2.10 m2 HR: 88 bpm BP: 145 / 70 mmHg Exam Date: 10/04/2020 2:02 PM Exam Location: [facility] Pulmonary Patient Status: Outpatient Admit Date: 10/04/2020 Staff Ordering Physician: Cayetano Garcia DO Clinical Pharmacy Manager: [email or web address] Attending Provider: Cayetano Garcia DO Referring Physician: Jose CONTRERAS; Exam Type: CA echo doppler color flow Study Info Indications R00.2 - Palpitations Complete two-dimensional, color flow and Doppler transthoracic echocardiogram is performed. Summary 1. Complete two-dimensional, color flow and Doppler transthoracic echocardiogram is performed. 2. Left ventricular chamber dimension is normal. 3. Left ventricular systolic function is normal, estimated at 60-65%. 4. The left ventricular diastolic function is grade I diastolic dysfunction. 5. E/e' 27 is elevated. 6. There is moderate aortic valve regurgitation. 7. No pulmonary hypertension, estimated pulmonary arterial systolic pressure is 9 mmHg. Left Ventricle E/e' 27 is elevated. Left ventricular chamber dimension is normal. Left ventricular systolic function is normal, estimated at 60-65%. The left ventricular diastolic function is grade I diastolic dysfunction. Right Ventricle Right ventricular chamber dimension is normal. Right ventricular systolic function is normal. Left Atria Left atrial chamber dimension is normal. Right Atria Right atrial chamber dimension is normal. Aortic Valve The aortic valve is not well visualized. Cannot determine number of aortic valve leaflets. There is no aortic valve stenosis. There is moderate aortic valve regurgitation. Pulmonic Valve There is no pulmonic regurgitation. Mitral Valve There is no mitral valve stenosis. There is no mitral valve regurgitation. Tricuspid Valve There is no tricuspid valve regurgitation. No pulmonary hypertension, estimated pulmonary arterial systolic pressure is 9 mmHg. Pericardium/Pleural There is no pericardial effusion. Inferior Vena Cava Normal inferior vena cava with >50% collapse upon inspiration consistent with normal right atrial pressure, 5 mmHg. Aorta The aortic root size at the sinus of Valsalva is normal. Left Ventricular Outflow Tract Name Value Normal LVOT 2D LVOT Diameter 2.1 cm LVOT Doppler LVOT Peak Gradient 6 mmHg LVOT Mean Gradient 3 mmHg LVOT VTI 22 cm LVOT VTI/AV VTI Ratio 0.7 LVOT Stroke Volume 78 ml LVOT CO 16.6 l/min LVOT CI 7.9 l/min/m2 Mitral Valve Name Value Normal MV Doppler MV Decel [place] 548 cm/s2 MV PHT
== END 2020-10-04 13:42 | disposition home or self-care (01) ==
LOC: ANHCARD 13:43
PROVIDERS: PCP Internal Medicine; Visit Provider Internal Medicine Cardiovascular Disease
DX: R00.2 Palpitations (principal); I35.1 Nonrheumatic aortic (valve) insufficiency
CPT/HCPCS: 93306

== ENCOUNTER 2021-01-22 11:04 | Outpatient (RCR) | payer MEDICARE, SELFPAY ==
[2021-01-22 11:12] VITALS: BMI 36.1
[2021-01-22 11:15] VITALS: BMI 36.1
== END 2021-04-08 11:58 | disposition home or self-care (01) ==
LOC: ANHDMC 11:04
PROVIDERS: PCP Internal Medicine; Visit Provider Internal Medicine
DX: E11.22 Type 2 diabetes mellitus with diabetic chronic kidney disease (principal); Z68.37 Body mass index [BMI] 37.0-37.9, adult; Z71.3 Dietary counseling and surveillance
CPT/HCPCS: 97802

== ENCOUNTER → 2021-08-27 13:12 | Outpatient (CLI) | payer MEDICARE, SELFPAY ==
--- NOTE | ~2021-08-27 | MM_ITS ---
EXAMINATION: MM screening carisa BI w maynor HISTORY: Screening TECHNIQUE: Craniocaudal and mediolateral oblique 3-D tomosynthesis images were obtained and synthetic 2-D images were generated. CAD analysis was submitted and interpreted. COMPARISON: No prior mammogram is available for comparison at this institution. BREAST PARENCHYMAL COMPOSITION: Breast composed of scattered areas of fibroglandular density FINDINGS: There is no evidence of suspicious mass, calcification, or architectural distortion to sugg est malignancy in either breast. There has been no suspicious interval change. IMPRESSION: 1. No mammographic evidence of malignancy. 2. Recommend routine screening mammography in one year. BI-RADS Category 1: Negative Reviewed, dictated and finalized at location A.
== END ==
PROVIDERS: PCP Internal Medicine; Visit Provider Internal Medicine
DX: Z12.31 Encounter for screening mammogram for malignant neoplasm of breast (principal)
CPT/HCPCS: 77063; 77067

== ENCOUNTER 2021-11-26 15:51 | Outpatient (CLI) | payer MEDICARE, SELFPAY ==
--- NOTE | ~2021-11-26 | US_ITS ---
EXAMINATION: US venous doppler LE RT DATE: 11/26/2021 16:59 INDICATION: M79.661 - Pain in right lower leg . TECHNIQUE: Grayscale images without and with compression and Doppler images of the right lower extrem ity veins were obtained. COMPARISON: 05/27/2018. FINDINGS: The right common femoral vein, profunda (deep) femoral vein, femoral vein, popliteal vein, peroneal v ein, posterior tibial veins, and greater saphenous vein are patent. IMPRESSION: 1. Patent right lower extremity veins. No evidence of deep venous thrombosis. Reviewed, dictated and finalized at location K.
--- NOTE | ~2021-11-26 | XR_ITS ---
XR knee LT 3V 11/26/2021 16:30 Indication: Left knee pain. No injury. Procedure: 4 views left knee Comparison: No prior studies for comparison. Findings: There are corticated ossific density superior to the patella, likely related to remote trau ma. The patellar tendon is indistinct. Cannot exclude patellar tendon injury. No acute fracture is id entified. No significant joint effusion. Osteopenia. There is mild tricompartment osteoarthritis. Impression: 1: Indistinctness of the patellar tendon, suspicious for tear. Consider correlation with MRI. 2: No acute fracture. 3: Ossific density superior to the patella are likely related to remote trauma. Reviewed, dictated and finalized at location A. Impression: 1: Indistinctness of the patellar tendon, suspicious for tear. Consider correla tion with MRI. 2: No acute fracture. 3: Ossific density superior to the patella are likely related to remote trauma.
== END 2021-11-26 15:52 | disposition home or self-care (01) ==
LOC: ANHIMG 15:57
PROVIDERS: PCP Internal Medicine; Visit Provider Nurse Practitioner
DX: M79.661 Pain in right lower leg (principal); M79.89 Other specified soft tissue disorders; M25.562 Pain in left knee
CPT/HCPCS: 73562; 93971

== ENCOUNTER 2021-12-03 14:53 | Outpatient (CLI) | payer MEDICARE, SELFPAY ==
[2021-12-03 15:14] LABS: Basophils Absolute Auto 0.1 K/mm3 (0.0-0.1); Eosinophils Absolute Auto 0.1 K/mm3 (0-0.3); Eosinophils Percent Auto 1.8 % (0-4.4); Hematocrit 36.1 % (37.0-47.0); Hemoglobin 11.3 g/dL (12.0-15.0); Immature Granulocyte Absolute 0.01 K/mm3 (0.00-0.031); Immature Granulocyte Percent A 0.2 % (0-0.5); Lymphocytes Absolute Auto 2.37 K/mm3 (0.9-3.2); Lymphocytes Percent Auto 48.7 % (18.3-44.2); Mean Corpuscular HGB Conc 31.3 g/dl (32-36); Mean Corpuscular Hemoglobin 26.9 pg (26-34); Mean Platelet Volume 8.9 fl (7.4-10.4); Monocytes Absolute Auto 0.4 K/mm3 (0.1-0.6); Monocytes Percent Auto 7.4 % (2.6-8.5); Neutrophils Percent Auto 40.9 % (45.5-73.1); Platelet Count Result 274 k/mm3 (150-375); Red Cell Distribution Width 16.1 % (11.5-14.5); White Blood Count 4.9 K/mm3 (4.5-10.0)
== END 2021-12-03 14:54 | disposition home or self-care (01) ==
LOC: ANHLAB 14:55
PROVIDERS: PCP Internal Medicine; Visit Provider Internal Medicine Hematology & Oncology
DX: D64.9 Anemia, unspecified (principal)
CPT/HCPCS: 36415; 85025

== ENCOUNTER 2022-01-08 09:56 | Outpatient (CLI) | payer MEDICARE, SELFPAY ==
--- NOTE | ~2022-01-08 | XR_ITS ---
EXAMINATION: XR lg joint inject/asp add DATE: 01/08/2022 11:45 INDICATION: Left shoulder pain. TECHNIQUE: A time-out was performed to verify the patient's name, date of , and procedure to b e performed. The procedure including the risks, benefits, and alternatives was discussed with the pat ient. Risks discussed included bleeding and infection. The patient understood the risks and agreed to proceed. The skin overlying the left glenohumeral joint was prepped and draped in usual sterile fas hion. Anesthetic was administered with 1% lidocaine subcutaneously. A 22 G needle was advanced unde r fluoroscopic guidance into the joint. Injection of 1 mL of Omnipaque 240 confirmed intra-articular position of the needle. Subsequently, injectate consisting of 5 mL 1% lidocaine and 2 mL 10 mg/mL K enalog was instilled. The needle was removed and the entry site was cleaned and dressed. There were no immediate complications. Fluoroscopy exposure time was 0.1 minutes. The total number of images wa s 2. FINDINGS: Real-time fluoroscopy demonstrates the needle in the left glenohumeral joint. Patient's mavis n prior to procedure:09/01. Patient's pain following the procedure: 06/02. IMPRESSION: 1. Fluoroscopy guided left glenohumeral joint injection of local anesthetic and steroid with decrease in the patient's presenting pain. Reviewed, dictated and finalized at location A. EO PLOTTER OPERATOR
--- NOTE | ~2022-01-08 | XR_ITS ---
EXAMINATION: XR lg joint inject/asp w image DATE: 01/08/2022 11:43 INDICATION: Right shoulder pain. TECHNIQUE: A time-out was performed to verify the patient's name, date of , and procedure to b e performed. The procedure including the risks, benefits, and alternatives was discussed with the pat ient. Risks discussed included bleeding and infection. The patient understood the risks and agreed to proceed. The skin overlying the right glenohumeral joint was prepped and draped in usual sterile fa shion. Anesthetic was administered with 1% lidocaine subcutaneously. A 22 G needle was advanced und er fluoroscopic guidance into the joint. Injection of 1 mL of Omnipaque 240 confirmed intra-articula r position of the needle. Subsequently, injectate consisting of 5 mL 1% lidocaine and 2 mL 10 mg/mL Kenalog was instilled. The needle was removed and the entry site was cleaned and dressed. There wer e no immediate complications. Fluoroscopy exposure time was 0.1 minutes. The total number of images was 1. FINDINGS: Real-time fluoroscopy demonstrates the needle in the right glenohumeral joint. Patient's pa in prior to procedure:09/01. Patient's pain following the procedure: 09/01. IMPRESSION: 1. Fluoroscopy guided right glenohumeral joint injection of local anesthetic and steroid . Reviewed, dictated and finalized at location A. INIST WOOD IMPRESSION: 1. Fluoroscopy guided right glenohumeral joint injection of local anesthetic an d steroid .
== END 2022-01-08 09:57 | disposition home or self-care (01) ==
PROVIDERS: PCP Internal Medicine; Visit Provider Orthopaedic Surgery
DX: M25.511 Pain in right shoulder (principal); M25.512 Pain in left shoulder
CPT/HCPCS: 20610; 77002; J3301; Q9966

== ENCOUNTER 2022-01-20 14:54 | Outpatient (CLI) | payer MEDICARE, SELFPAY ==
--- NOTE | 2022-01-20 14:56 | ECHO_ITS ---
Patient Info Name: Tereza Jerome Age: 76 years : 1945 Gender: Female Ht: 63 in Wt: 220 lbs BSA: 2.16 m2 HR: 91 bpm BP: 131 / 53 mmHg Heart Rhythm: Sinus Rhythm Technical Quality: Fair Exam Date: 01/20/2022 3:12 PM Exam Location: [facility] Patient Status: Outpatient Admit Date: 01/20/2022 Staff Ordering Physician: Cayetano Garcia DO Lead Accountant: Tracy Small RDCS Attending Provider: Cayetano Garcia DO Referring Physician: Jose CONTRERAS; Exam Type: CA echo doppler color flow Study Info Indications I51.89 - Other ill-defined heart diseases Complete two-dimensional, color flow and Doppler transthoracic echocardiogram is performed. Summary 1. Complete two-dimensional, color flow and Doppler transthoracic echocardiogram is performed. 2. Left ventricular chamber dimension is normal. 3. Left ventricular systolic function is normal, estimated at 60-65%. 4. The left ventricular diastolic function is grade I diastolic dysfunction. 5. E/e' 13 is mildly elevated. 6. There is mild aortic valve regurgitation. 7. No pulmonary hypertension, estimated pulmonary arterial systolic pressure is 17 mmHg. Left Ventricle E/e' 13 is mildly elevated. Left ventricular chamber dimension is normal. Left ventricular systolic function is normal, estimated at 60-65%. The left ventricular diastolic function is grade I diastolic dysfunction. Right Ventricle Right ventricular systolic function is normal and with normal TAPSE 2.1 cm. Right ventricular chamber dimension is normal. Left Atria Left atrial chamber dimension is normal. Right Atria Right atrial chamber dimension is normal. Aortic Valve The aortic valve is trileaflet. There is no aortic valve stenosis. There is mild aortic valve regurgitation. Pulmonic Valve There is no pulmonic regurgitation. Mitral Valve There is no mitral valve stenosis. There is no mitral valve regurgitation. Tricuspid Valve There is no tricuspid valve regurgitation. No pulmonary hypertension, estimated pulmonary arterial systolic pressure is 17 mmHg. Pericardium/Pleural There is no pericardial effusion. Inferior Vena Cava Normal inferior vena cava with >50% collapse upon inspiration consistent with normal right atrial pressure, 5 mmHg. Aorta The aortic root size at the sinus of Valsalva is normal. Left Ventricular Outflow Tract Name Value Normal LVOT 2D LVOT Diameter 2.0 cm LVOT Doppler LVOT Peak Gradient 5 mmHg LVOT Mean Gradient 2 mmHg LVOT VTI 27 cm LVOT VTI/AV VTI Ratio 0.8 LVOT Stroke Volume 82 ml LVOT CO 5.7 l/min LVOT CI 2.7 l/min/m2 Pulmonic Valve Name Value Normal RVOT Doppler
== END 2022-01-20 14:55 | disposition home or self-care (01) ==
LOC: ANHCARD 14:55
PROVIDERS: Visit Provider Internal Medicine Cardiovascular Disease
DX: I51.89 Other ill-defined heart diseases (principal); I35.1 Nonrheumatic aortic (valve) insufficiency
CPT/HCPCS: 93306

== ENCOUNTER → 2022-01-21 13:37 | Outpatient (CLI) | payer MEDICARE, SELFPAY ==
--- NOTE | ~2022-01-21 | US_ITS ---
US abdomen complete EXAMINATION: US Abdomen Complete INDICATION: Generalized abdominal pain PROCEDURE: Realtime High Resolution abdomen ultrasound. COMPARISON: No prior studies for comparison FINDINGS: Gallbladder is surgically absent. Common bile duct measures 6 mm. Liver echotexture is increased, consistent with fatty infiltration.. Pancreas within normal limits. Pancreatic tail is obscured by bowel gas. Spleen is unremarkeable. Renal echotexture is within norm al limits bilaterally without hydronephrosis, contour deforming mass or renal stone. Right kidney luis sures 8.9 cm. Left kidney measures 8.1 cm. Visualized aspects of the aorta and IVC are within normal limits. Portal vein is patent. No sonograph ic De La Cruz's sign indicated by the technologist. IMPRESSION: 1: Hepatic steatosis. Reviewed, dictated and finalized at location A. HOUSE OPERATIONS ASSOCIATE IMPRESSION: 1: Hepatic steatosis.
== END ==
PROVIDERS: PCP Internal Medicine; Visit Provider Nurse Practitioner
DX: R60.9 Edema, unspecified (principal); K76.0 Fatty (change of) liver, not elsewhere classified
CPT/HCPCS: 76700

== ENCOUNTER → 2022-02-04 15:35 | Outpatient (CLI) | payer MEDICARE, SELFPAY ==
--- NOTE | ~2022-02-04 | XR_ITS ---
EXAM: XR hip BI 2V w AP pelvis DATE: 02/04/2022 16:08 HISTORY: M25.551 - Pain in right hip . COMPARISON: 01/18/2020, images only. FINDINGS: Uncomplicated appearing right hip arthroplasty with cerclage wire. Severe degenerative dis c disease in the lumbar spine. Mild left hip osteoarthritis. Bilateral sacroiliitis. No fracture or d islocation. IMPRESSION: No acute osseous finding in the pelvis or bilateral hips. No radiographic evidence of ebenezer dware-related complication. Reviewed, dictated and finalized at location K. SANDER IMPRESSION: No acute osseous finding in the pelvis or bilateral hips. No radiog raphic evidence of hardware-related complication.
== END ==
PROVIDERS: PCP Internal Medicine; Visit Provider Internal Medicine
DX: M25.551 Pain in right hip (principal); M25.552 Pain in left hip
CPT/HCPCS: 73521

== ENCOUNTER 2022-03-07 12:05 | Emergency (ER) | payer MEDICARE, SELFPAY ==
[2022-03-07 12:18] VITALS: BP 134/62; PULSE 117; RESP 18; TEMP 37.7; O2SAT 97
--- NOTE | 2022-03-07 12:43 | ED.URI ---
HPI - URI/Sore Throat General Chief Complaint: Upper Respiratory Infection Stated Complaint: Sore Throat/ Chills Time Seen by Provider: 03/07/22 12:43 Source: patient Mode of arrival: ambulatory Limitations: no limitations History of Present Illness HPI Narrative: 76-year-old female presents with complaint of runny nose, nasal congestion, sore throat,, pain to right ear, itchy ears. Symptoms for 3-4 days. Denies shortness of breath, chest pain. Afebrile. Not taking any [id number] medications to treat her symptoms. Denies nausea vomiting diarrhea. All systems reviewed and negative except as noted above. Related Data Home Medications Medication Instructions Recorded Confirmed vitamin B complex (B 1 tablet PO BID 01/04/19 03/07/22 Complex-Vitamin B12 tablet) ferrous sulfate 325 mg (65 mg 325 mg PO TID 10/25/19 03/07/22 iron) tablet aspirin 81 mg tablet 81 mg PO DAILY 08/30/20 03/07/22 krill 1 cap PO DAILY 08/30/20 03/07/22 [id number] 300 mg-90 mg-24 mg-50 mg capsule (krill oil) Allergies Allergy/AdvReac Type Severity Reaction Status Date / Time erythromycin base Allergy Unknown Diarrhea Verified 03/07/22 12:15 Penicillins Allergy Unknown Rash Verified 03/07/22 12:15 Review of Systems Review of Systems: CONSTITUTIONAL: Denies fever, chills, or sweats. EYES: Denies visual changes, redness, or discharge. ENT: Reports rhinorrhea, congestion, sore throat, right ear pain. CARDIOVASCULAR: Denies chest pain, palpitations, or edema. RESPIRATORY: Reports cough. Denies dyspnea. GASTROINTESTINAL: Denies abdominal pain, nausea, vomiting, or diarrhea. GENITOURINARY: Denies dysuria or hematuria. SKIN: Denies rash or itching. MUSCULOSKELETAL: Denies back pain, joint pain, or myalgia. NEUROLOGIC: Denies headache, numbness, or weakness. PSYCHIATRIC: Denies anxiety or depression. All other systems reviewed are negative, except as documented in HPI. [facility] Past Medical History Medical History (Updated 03/07/22 @ 12:51 by Mayra Casanova NP) Adhesive capsulitis of right shoulder Anemia Anxiety Arthritis Arthritis of left knee Bilateral hand pain Bilateral shoulder pain Bilateral shoulder region arthritis BMI 38.0-38.9,adult COVID-19 Degenerative joint disease (DJD) of lumbar spine Depression Diabetes a1c=6.9 (04/05/19) Fibromyalgia (~2009) Gastric ulcer without hemorrhage or perforation Generalized osteoarthritis of multiple sites (~2009) Hemoglobin A1c less than 7.0% 6.9 on 04/05/19 Hip pain, bilateral Hypertension Lumbar and sacral arthritis Mass of both axillae Osteoarthritis of left knee Renal insufficiency Screening for breast cancer Seronegative rheumatoid arthritis of both hands (~2014) Stroke Surgical History Surgical History H/O cataract extraction H/O elbow surgery H/O: hysterectomy History of carpal tunnel release History of hip replacement 03/2018 History of knee surgery 12/2013 Dr. Peña Hx of cholecystectomy Family History Family History Father Hypertension Family history of diabetes mellitus in first degree relative Mother Hypertension Other Diabetes mellitus Family history of cardiovascular disease Family history of malignant neoplasm Social History Social History Smoking packs per day: 0.2 Smoking cigarettes per day: 4.0 Years smoked: 7 Smoking pack-years: 1.40 Smoking status: Former smoker Tobacco type: cigarettes Smoking end date: 02/23/86 Alcohol intake: former Alcohol use details: occasional Substance use: never Substance use type: does not use Lack of Transportation: No Lack of Food: Never True Current Housing: I Have Housing Concerned About Future Housing: No Difficulty Paying Gas/Electric Bills: No Difficulty P
== END 2022-03-07 12:57 | disposition home or self-care (01) ==
PROVIDERS: Emergency Provider Nurse Practitioner Family; PCP Internal Medicine
DX: J01.90 Acute sinusitis, unspecified (principal); Z20.822 Contact with and (suspected) exposure to COVID-19; Z87.891 Personal history of nicotine dependence; M17.12 Unilateral primary osteoarthritis, left knee; Z86.16 Personal history of COVID-19; E11.9 Type 2 diabetes mellitus without complications; M79.7 Fibromyalgia; I10 Essential (primary) hypertension; Z86.73 Personal history of transient ischemic attack (TIA), and cerebral infarction without residual deficits; M47.816 Spondylosis without myelopathy or radiculopathy, lumbar region; D64.9 Anemia, unspecified; Z79.82 Long term (current) use of aspirin; F41.9 Anxiety disorder, unspecified; F32.A Depression, unspecified
CPT/HCPCS: 87081; 87426; 87804; 87880; 99213; C9803; G0463

== ENCOUNTER → 2022-03-25 14:28 | Outpatient (CLI) | payer MEDICARE, SELFPAY ==
--- NOTE | ~2022-03-25 | XR_ITS ---
EXAMINATION: XR chest 2V Exam Date/Time: 03/25/2022 14:35 [facility] HE[employer]ER HISTORY: Viral pneumonia, unspecified;hx of HTN, DM type2 Comparison: 03/31/2018. RESULT: Lines, tubes, and devices: None. Lungs and pleura: Mild senescent change. No focal consolidation, pneumothorax, or pleural effusion. Cardiomediastinal silhouette: Stable. Other: No acute osseous or upper abdominal finding. IMPRESSION: No acute cardiopulmonary process. Reviewed, dictated and finalized at location K. [facility]
== END ==
PROVIDERS: PCP Nurse Practitioner; Visit Provider Nurse Practitioner
DX: J12.9 Viral pneumonia, unspecified (principal)
CPT/HCPCS: 71046

== ENCOUNTER 2022-05-12 12:00 | Outpatient (CLI) | payer MEDICARE, SELFPAY ==
[2022-05-12 13:00] VITALS: PULSE 84; O2SAT 96
[2022-05-12 13:05] VITALS: PULSE 113; O2SAT 92
[2022-05-12 13:15] VITALS: PULSE 89; O2SAT 95
--- NOTE | 2022-05-12 13:31 | HOMEO2EVAL ---
Evaluation was performed at [facility] Home Oxygen Evaluation RC: Home Oxygen (O2) Evaluation Start: 05/12/22 13:29 Freq: Status: Active Protocol: RPE Activity Type Activity Date Activity User E-sign Co-sign Detail Recorded Client Recorded Date Recorded By Document 05/12/22 13:00 JACQUELINE [email or web address] 05/12/22 13:31 JACQUELINE Document 05/12/22 13:05 JACQUELINE [email or web address] 05/12/22 13:31 JACQUELINE Document 05/12/22 13:15 JACQUELINE [email or web address] 05/12/22 13:31 JACQUELINE 05/12/22 05/12/22 05/12/22 13:00 13:05 13:15 Home O2 Evaluation [Oxygen] -Test Phase Resting Exercise Resting -Oxygen Delivery Room Air Room Air Room Air [Pulse Oximetry] -Pulse Oximetry (90-100 %) 96 92 95 [Pulse Rate] -Pulse Rate (60-100 beats/min) 84 113 H 89 [Exercise] -Ambulation Distance (feet) 400 -Ambulation Distance (meters) 121.91 [Comments] -Home Oxygen Evaluation Comments No home O2 needed at this time [Charges] -Treatment Charges O2 Evaluation - Outpatient
--- NOTE | 2022-05-12 13:32 | PCRCNOTE ---
Home o2 eval faxed to office staff. No home o2 needed at this time
== END 2022-05-12 12:01 | disposition home or self-care (01) ==
PROVIDERS: PCP Internal Medicine; Visit Provider Internal Medicine Pulmonary Disease
DX: J12.9 Viral pneumonia, unspecified (principal)
CPT/HCPCS: 94618

== ENCOUNTER 2022-06-10 12:38 | Outpatient (CLI) | payer MEDICARE, SELFPAY ==
--- NOTE | ~2022-06-10 | MR_ITS ---
MRI of the lumbar spine Clinical History: Degenerative joint disease Technique: Axial T2-weighted images, and sagittal T1-weighted, T2-weighted, and T2 fat-sat images wer e acquired. COMPARISON: 03/27/2020 Findings: No acute fracture seen. There is minimal grade 1 anterolisthesis of L2 over L3, and L3 over L4. Additional minimal grade 1 anterolisthesis of L4 over L5 present. There is extensive marrow rene a in the L2 and L3 vertebral bodies, presumably due to underlying degenerative disc disease. At L1-L2, there is disc bulge and facet arthropathy. No leodan spinal canal stenosis. There is severe left neural foraminal narrowing. There is minimal right neural foraminal narrowing. At L2-L3, there is diffuse disc bulge and advanced facet arthropathy. No leodan spinal canal stenosis. There is severe left neural foraminal narrowing. There is minimal right neural foraminal narrowing. At L3-L4, there is disc bulge and advanced facet arthropathy. No spinal canal stenosis. Probable mini mal right neural foraminal narrowing. Left neural foramen preserved. At L4-L5, there is no disc bulge or herniation. There is advanced facet arthropathy. No spinal canal stenosis or neural foraminal narrowing. L5-S1, there is minimal disc bulge. There is advanced facet arthropathy. No spinal canal stenosis. Th ere is severe right neural foraminal narrowing and minimal left neural foraminal narrowing. Paravertebral soft tissues are unremarkable. Impression: Multilevel neural foraminal narrowing throughout the lumbar spine, as detailed above, with extensive facet joint degenerative changes. No leodan spinal canal stenosis. Multiple grade 1 anterolistheses in the lower lumbar spine, as detailed above. Reviewed, dictated and finalized at [facility]. Impression: Multilevel neural foraminal narrowing throughout the lumbar spine, as detailed above, with extensive facet joint degenerative changes. No leodan spinal canal stenosis. Multiple grade 1 anterolistheses in the lower lumbar spine, as detailed above.
== END 2022-06-10 12:39 | disposition home or self-care (01) ==
PROVIDERS: PCP Internal Medicine; Visit Provider Nurse Practitioner
DX: M47.816 Spondylosis without myelopathy or radiculopathy, lumbar region (principal); M47.817 Spondylosis without myelopathy or radiculopathy, lumbosacral region; M51.36 Other intervertebral disc degeneration, lumbar region
CPT/HCPCS: 72148

== ENCOUNTER 2022-07-03 13:05 | Outpatient (CLI) | payer MEDICARE, SELFPAY ==
--- NOTE | ~2022-07-03 | XR_ITS ---
EXAMINATION: XR chest 2V DATE: 07/03/2022 13:55 INDICATION: Cough and congestion TECHNIQUE: PA and lateral views of the chest were obtained. COMPARISON: Chest radiograph dated 03/25/2022 FINDINGS: The lungs remain clear with no focal airspace opacities, pulmonary edema, pleural effusion or pneumot horax. The cardiomediastinal silhouette is normal. There are bridging osteophytes at multiple levels in the spine, consistent with diffuse idiopathic skeletal hyperostosis (DISH). Severe bilateral gleno humeral osteoarthritis. IMPRESSION: 1. No acute cardiopulmonary disease. Reviewed, dictated and finalized at location A.
[2022-07-03 15:20] LABS: Basophils Absolute Auto 0.1 K/mm3 (0.0-0.1); Basophils Percent Auto 0.7 % (0.2-1.2); Eosinophils Absolute Auto 0.1 K/mm3 (0-0.3); Eosinophils Percent Auto 1.1 % (0-4.4); Hemoglobin 11.5 g/dL (12.0-15.0); Immature Granulocyte Absolute 0.02 K/mm3 (0.00-0.031); Immature Granulocyte Percent A 0.3 % (0-0.5); Lymphocytes Absolute Auto 0.98 K/mm3 (0.9-3.2); Mean Corpuscular HGB Conc 31.1 g/dl (32-36); Mean Corpuscular Hemoglobin 26.1 pg (26-34); Mean Corpuscular Volume 83.9 fl (80-100); Mean Platelet Volume 9.4 fl (7.4-10.4); Monocytes Absolute Auto 0.8 K/mm3 (0.1-0.6); Monocytes Percent Auto 10.9 % (2.6-8.5); Neutrophils Absolute Auto 5.1 K/mm3 (1.3-6.7); Platelet Count Result 239 k/mm3 (150-375); Red Blood Count 4.41 M/mm3 (4.2-5.4); Red Cell Distribution Width 16.6 % (11.5-14.5)
[2022-07-03 15:33] LABS: Alanine Aminotransferase 20 U/L (6-35); Alkaline Phosphatase 70 U/L (38-126); Anion Gap 6 mmol/L (8-16); Aspartate Amino Transferase 33 U/L (14-36); Bilirubin,Total 0.5 mg/dL (0.2-1.3); Blood Urea Nitrogen 13 mg/dL (7-17); Calcium 8.5 mg/dL (8.4-10.2); Carbon Dioxide 35 mmol/L (22-30); Chloride 99 mmol/L (98-107); Estimated Glomerular Filt Rate > 60; Glucose 109 mg/dL (65-110); Sodium 140 mmol/L (137-145)
== END 2022-07-03 13:06 | disposition home or self-care (01) ==
LOC: ANHLAB 13:08
PROVIDERS: PCP Family Medicine; Visit Provider Nurse Practitioner Family
DX: R05.9 Cough, unspecified (principal); Z87.891 Personal history of nicotine dependence; N18.9 Chronic kidney disease, unspecified; I12.9 Hypertensive chronic kidney disease with stage 1 through stage 4 chronic kidney disease, or unspecified chronic kidney disease; E11.22 Type 2 diabetes mellitus with diabetic chronic kidney disease
CPT/HCPCS: 36415; 71046; 80053; 85025

== ENCOUNTER → 2022-07-10 10:42 | Outpatient (CLI) | payer MEDICARE, SELFPAY ==
--- NOTE | ~2022-07-10 | XR_ITS ---
AP view of the pelvis and AP and lateral views of the left hip Clinical history: Pain Findings: No acute fracture or dislocation is seen. Right hip arthroplasty is present. There is minim al degenerative change of the left hip joint. There is mild degenerative change of the bilateral SI j oints. Soft tissues are unremarkable. Impression: No fracture or dislocation. Minimal degenerative changes, as above. Right hip arthroplasty in place. Reviewed, dictated and finalized at location M. Impression: No fracture or dislocation. Minimal degenerative changes, as above. Right hip arthroplasty in place.
--- NOTE | ~2022-07-10 | XR_ITS ---
. EXAMINATION: XR lumbar spine min 4V DATE: 07/10/2022 11:22 INDICATION: Back pain. TECHNIQUE: 5 views of lumbar spine including flexion and extension views were obtained. COMPARISON: Lumbar spine radiographs 06/16/2019 FINDINGS: There is 4 mm anterolisthesis of L2 on L3 and L3 on L4 and 3 mm anterolisthesis of L4 on L5 . There is no abnormal motion with flexion or extension. There is 17 degrees dextroscoliosis of lumba r spine. Vertebral body heights are normal. There is severely decreased disc height at L1-L2 and L2-L 3 and mildly decreased disc height at L3-L4, L4-L5, and L5-S1. There is multilevel severe facet joint osteoarthritis. There is a right hip arthroplasty. IMPRESSION: 1. Severe lumbar spondylosis. 2. Lumbar dextroscoliosis. Reviewed, dictated and finalized at location A.
== END ==
PROVIDERS: PCP Orthopaedic Surgery; Visit Provider Neurological Surgery
DX: M25.551 Pain in right hip (principal); M25.552 Pain in left hip; M47.896 Other spondylosis, lumbar region
CPT/HCPCS: 72110; 73502

== ENCOUNTER 2022-10-02 12:59 | Outpatient (CLI) | payer MEDICARE, SELFPAY ==
--- NOTE | ~2022-10-02 | DEXA_ITS ---
Bone Density Report Name: BOBBY DELCID Age: 77 Sex: Female Ethnicity: Black Date of : 1945 Indication: postmenopausal; screening for osteoporosis; parental hip fracture; height loss; hysterectomy; rheumatoid arthritis; Referring Provider: BUFFY LAUREN Study: Bone densitometry was performed. Exam Date: October 02, 2022 Accession number: [id number] Bone Density: Region BMD T-score Z-score Classification AP Spine(L3, L4) 1.214 1.0 2.9 Normal Femoral Neck (Left) 0.766 -0.8 0.3 Normal Total Hip (Left) 0.954 0.1 0.9 Normal World Health Organization criteria for BMD impression classify patients as: Normal (T-score at or above -1.0), Osteopenia (T-score between -1.0 and -2.5), or Osteoporosis (T-score at or below -2.5). 10-year Fracture Risk: FRAX not reported because: All T-scores for Spine Total, Hip Total, Femoral Neck at or above -1.0 Treated for osteoporosis Clinical Information Provided by Patient: Parent has had a hip fracture Has rheumatoid arthritis Is being treated for osteoporosis Has used the following medications: Fosamax (i.e. alendronate), Vitamin D, Calcium Has the following medical conditions: Hysterectomy Patient maximum height was 63.5 Menopause Age: 43 No regular weight bearing exercise Does not regularly consume dairy products Drinks caffeinated beverages Onset of menses at age 12 Number of children 1 Impression: The patient has normal bone mass. The patient has risk factors, including: parental hip fracture. Discussion: It is important to ask patients whether they are taking their medications and to encourage continued and appropriate compliance with their osteoporosis therapies to reduce fracture risk. It is also important to review their risk factors and encourage appropriate calcium and vitamin D intakes, exercise, fall prevention and other lifestyle measures. Follow-Up: Consider a repeat BMD and Vertebral Fracture Assessment (VFA) exam in 2 years or sooner if medically necessary, to reassess this patient's status. Reported by: [facility] on 10/02/2022 2:22:00 PM. Reviewed, dictated and finalized at location AGeno CHAPPELL
== END 2022-10-02 13:00 | disposition home or self-care (01) ==
PROVIDERS: PCP Family Medicine; Visit Provider Nurse Practitioner
DX: Z78.0 Asymptomatic menopausal state (principal)
CPT/HCPCS: 77080

== ENCOUNTER → 2022-10-03 13:52 | Outpatient (CLI) | payer MEDICARE, SELFPAY ==
--- NOTE | ~2022-10-03 | MM_ITS ---
EXAMINATION: MM screening [facility] [place] [facility] HISTORY: Screening mammogram TECHNIQUE: Craniocaudal and mediolateral oblique 3-D tomosynthesis images were obtained and synthetic 2-D images were generated. CAD analysis was submitted and interpreted. COMPARISON: 08/27/2021, 10/20/2019, 12/24/2018 BREAST PARENCHYMAL COMPOSITION: There are scattered areas of fibroglandular density. FINDINGS: No suspicious mass, calcification, or architectural distortion are identified in either madi ast to suggest malignancy. There has been no suspicious interval change. IMPRESSION: 1. No mammographic evidence of malignancy. 2. Recommend routine screening mammography in one year. BI-RADS Category 1: Negative Reviewed, dictated and finalized at location A.
== END ==
PROVIDERS: PCP Family Medicine; Visit Provider Nurse Practitioner
DX: Z12.31 Encounter for screening mammogram for malignant neoplasm of breast (principal)
CPT/HCPCS: 77063; 77067

== ENCOUNTER → 2022-12-31 15:27 | Outpatient (CLI) | payer MEDICARE, SELFPAY ==
--- NOTE | ~2022-12-31 | MR_ITS ---
EXAMINATION: MR thoracic spine wo con DATE: 12/31/2022 16:10 INDICATION: Back pain, thoracic. TECHNIQUE: Magnetic resonance imaging (MRI) of the thoracic spine was performed without intravenous c ontrast. COMPARISON: None FINDINGS: There is 5 degrees dextrocurvature of thoracic spine. Vertebral body heights are normal. Th ere is mildly decreased disc height from T2-T3 through T9-T10. At T1-T2, there is a left central extr usion with mild central canal stenosis. At T6-T7, the disc is bulging with mild central canal stenosi s. At T8-T9, the disc is bulging with mild central canal stenosis. At T9-T10, the disc is bulging wit h mild central canal stenosis. At T10-T11, the disc is bulging with mild central canal stenosis. Ther e is multilevel facet joint osteoarthritis, severe at many levels. There is mild neural foraminal noemy nosis at multiple levels bilaterally. The spinal cord signal intensity is normal. The conus medullari s is at T12-L1. IMPRESSION: 1. Mild thoracic spondylosis. Reviewed, dictated and finalized at location E. CIATE MEDICAL DIRECTOR
== END ==
PROVIDERS: PCP Nurse Practitioner Family; Visit Provider Nurse Practitioner Family
DX: M47.814 Spondylosis without myelopathy or radiculopathy, thoracic region (principal); M54.6 Pain in thoracic spine
CPT/HCPCS: 72146

== ENCOUNTER 2023-06-11 15:51 | Outpatient (CLI) | payer MEDICARE, SELFPAY ==
--- NOTE | ~2023-06-11 | XR_ITS ---
EXAMINATION: XR hip LT min 2V DATE: 06/11/2023 16:11 INDICATION: Left hip pain TECHNIQUE: 1. Anteroposterior and frog-leg lateral views of the left hip were obtained. 2. AP and lateral views of the left femur were obtained on overlapping proximal and distal images. COMPARISON: None. FINDINGS: Bone alignment is normal. Polyarticular osteoarthritis, moderate severity at the left sacroiliac join t, mild at the left hip and moderate to severe at the lateral compartment of the left knee at least m ild at the medial and patellofemoral compartments. Small left knee joint effusion. Severe lower lumba r spondylosis. IMPRESSION: 1. No acute osseous abnormality. 2. Polyarticular osteoarthritis, moderate to severe at the lateral compartment of the left knee with small left knee joint effusion. 3. Severe lower lumbar spondylosis. Reviewed, dictated and finalized at location A.
--- NOTE | ~2023-06-11 | XR_ITS ---
EXAMINATION: XR femur LT min 2V DATE: 06/11/2023 16:11 INDICATION: Left hip pain. TECHNIQUE: 2 views of left femur on 4 radiographs were obtained. COMPARISON: None. FINDINGS: Bone alignment is normal. No fracture. There is mild left hip osteoarthritis. There is mode rate left knee osteoarthritis. There is a small knee joint effusion. IMPRESSION: 1. Polyarticular osteoarthritis. 2. Small left knee joint effusion. Reviewed, dictated and finalized at location E.
== END 2023-06-11 15:52 ==
PROVIDERS: PCP Neurological Surgery; Visit Provider Neurological Surgery
DX: M25.552 Pain in left hip (principal); M16.12 Unilateral primary osteoarthritis, left hip; M25.452 Effusion, left hip; M43.06 Spondylolysis, lumbar region
CPT/HCPCS: 73502; 73552

== ENCOUNTER 2023-07-15 12:59 | Outpatient (CLI) | payer MEDICARE, SELFPAY ==
--- NOTE | 2023-07-15 13:12 | ECG_ITS ---
SEE SCANNED COPY FOR CONFIRMED REPORT MTDD
[2023-07-15 14:31] LABS: Hematocrit 38.6 % (37.0-47.0); Hemoglobin 12.3 g/dL (12.0-15.0); Mean Corpuscular HGB Conc 31.9 g/dl (32-36); Mean Corpuscular Hemoglobin 28.4 pg (26-34); Mean Corpuscular Volume 89.1 fl (80-100); Mean Platelet Volume 9.5 fl (7.4-10.4); Platelet Count Result 200 k/mm3 (150-375); Red Blood Count 4.33 M/mm3 (4.2-5.4); Red Cell Distribution Width 15.5 % (11.5-14.5); White Blood Count 7.5 K/mm3 (4.5-10.0)
[2023-07-15 14:50] LABS: INR 0.9; Prothrombin Time 12.9 Seconds (11.1-14.7)
[2023-07-15 14:51] LABS: Partial Thromboplastin Time 28.8 Seconds (22.3-36.8)
[2023-07-15 15:19] LABS: Add Urine Microscopic? YES; Appearance Urine Clear (Clear); Bacteria Urine None Seen /hpf; Bilirubin Urine Negative (Negative); Blood Urine Negative (Negative); Color Urine Yellow (Yellow); Glucose Urine UA Negative (Negative); Ketones Urine Negative (Negative); Leukocyte Esterase Ur 1+ LEU/UL (Negative); Need Manual Microscopic Reviewed; Nitrate Urine Negative (Negative); Protein Urine Negative (Negative); RBC Urine 0-2 /hpf (0-2); Specific Grav Ur 1.017 (1.001-1.035); Squamous Epithelial Cell Urine None Seen /hpf (Few); Urobilinogen Urine 0.2 mg/dL (<2.0); WBC Urine 0-5 /hpf (0-3)
== END 2023-07-15 13:00 | disposition home or self-care (01) ==
LOC: ANHSURGERY 13:07
PROVIDERS: PCP Nurse Practitioner; Visit Provider Neurological Surgery
DX: G89.29 Other chronic pain (principal); M54.50 Low back pain, unspecified; I10 Essential (primary) hypertension; Z01.818 Encounter for other preprocedural examination
CPT/HCPCS: 36415; 81001; 85027; 85610; 85730; 93005

== ENCOUNTER 2023-10-23 09:30 | Outpatient (CLI) | payer MEDICARE, SELFPAY ==
--- NOTE | ~2023-10-23 | NM_ITS ---
EXAMINATION: NM akanksha stress w perfusion DATE: 10/23/2023 11:31 INDICATION: Encounter for preprocedural cardiovascular examination TECHNIQUE: Rest images were obtained following intravenous administration of 10.6 mCi Tc99m tetrofosm in (Myoview). The patient was infused intravenously with Lexiscan (Regadenoson). Then, 34 mCi Tc99m t etrofosmin (Myoview) was administered intravenously, and stress images were obtained. Data was recons tructed into short axis and horizontal and vertical long axis SPECT images. Gated SPECT images were a lso obtained. COMPARISON: None. FINDINGS: There is no definite reversible or fixed perfusion abnormality to suggest ischemia or infar ction. There is normal left ventricular chamber size, wall motion and ejection fraction. Left ventr icular ejection fraction measures >70%. IMPRESSION: 1. Normal myocardial perfusion at rest and during stress. 2. Left ventricular ejection fraction measuring >70%. Reviewed, dictated and finalized at location A.
--- NOTE | 2023-10-23 09:41 | EST_ITS ---
Patient Info Name: Tereza Jerome Age: 78 years : 1945 Gender: Female Ht: 63 in Wt: 175 lbs BSA: 1.91 m2 HR: 83 bpm BP: 113 / 49 mmHg Exam Date: 10/23/2023 10:34 AM Exam Location: Echo Lab Patient Status: Outpatient Admit Date: 10/23/2023 Staff Ordering Physician: Cayetano Garcia DO Attending Provider: Cayetano Garcia DO Exercise Technologist: Tracy Small RDCS Exercise Physician: Cayetano Garcia DO Exam Type: CA stress akanksha w NM Study Info A regadenoson stress test was performed. Summary 1. 1. Negative lexiscan stress test for ischemic ST changes by ECG criteria. 2. 2. Stable hemodynamics throughout the test. 3. 3. Nuclear scan to follow and will be reported separately. Please correlate with it. 4. 4. Patient informed of the above results. Protocol: Lexiscan Stress ECG Details Stage: REST Duration (min): 2 min : 32 sec HR (bpm): 83 SBP (mmHg): 113 DBP (mmHg): 49 Stage: REST Duration (min): 7 min : 32 sec HR (bpm): 85 SBP (mmHg): 113 DBP (mmHg): 49 Stage: STAGE 1 Duration (min): 0 min : 59 sec HR (bpm): 111 SBP (mmHg): 122 DBP (mmHg): 52 Stage: RECOVERY Duration (min): 1 min : 0 sec HR (bpm): 109 SBP (mmHg): 122 DBP (mmHg): 52 Stage: RECOVERY Duration (min): 2 min : 0 sec HR (bpm): 106 SBP (mmHg): 122 DBP (mmHg): 52 Stage: RECOVERY Duration (min): 3 min : 0 sec HR (bpm): 111 SBP (mmHg): 117 DBP (mmHg): 52 Stage: RECOVERY Duration (min): 4 min : 0 sec HR (bpm): 103 SBP (mmHg): 117 DBP (mmHg): 52 Stage: RECOVERY Duration (min): 5 min : 0 sec HR (bpm): 105 SBP (mmHg): 117 DBP (mmHg): 52 Stage: RECOVERY Duration (min): 6 min : 0 sec HR (bpm): 106 SBP (mmHg): 130 DBP (mmHg): 53 Stage: RECOVERY Duration (min): 6 min : 10 sec HR (bpm): 107 SBP (mmHg): 130 DBP (mmHg): 53 Rest HR: 85 bpm Peak HR: 111 bpm Rest Sys BP: 113 mmHg Peak Sys BP: 130 mmHg Max Pred HR: 143 bpm % Max Pred HR: 78 % Target HR: 122 bpm Max RPP: 14,430 bpm*mmHg Termination Reason: Completed protocol Cardiac Symptoms: Shortness of breath Total Time: 1 min : 0 sec Rest Munguia BP: 49 mmHg Peak M[place]uia BP: 53 mmHg Total Dose: 0.4 mg Resting ECG Sinus rhythm. Stress ECG No ST changes. Arrhythmias None. Report Signatures
== END 2023-10-23 09:31 | disposition home or self-care (01) ==
PROVIDERS: PCP Nurse Practitioner; Visit Provider Internal Medicine Cardiovascular Disease
DX: Z01.810 Encounter for preprocedural cardiovascular examination (principal)
CPT/HCPCS: 78452; 93017; A9502; J2785

== ENCOUNTER 2023-10-29 14:56 | Outpatient (CLI) | payer MEDICARE, SELFPAY ==
[2023-10-29 15:47] LABS: Hematocrit 37.9 % (37.0-47.0); Mean Corpuscular HGB Conc 31.7 g/dl (32-36); Mean Corpuscular Hemoglobin 28.7 pg (26-34); Mean Corpuscular Volume 90.7 fl (80-100); Mean Platelet Volume 8.9 fl (7.4-10.4); Platelet Count Result 244 k/mm3 (150-375); Red Blood Count 4.18 M/mm3 (4.2-5.4); Red Cell Distribution Width 15.4 % (11.5-14.5); White Blood Count 4.7 K/mm3 (4.5-10.0)
[2023-10-29 15:54] LABS: Anion Gap 4 mmol/L (4-12); Blood Urea Nitrogen 18 mg/dL (7-17); Carbon Dioxide 33 mmol/L (22-30); Chloride 100 mmol/L (98-107); Estimated Glomerular Filt Rate > 60; Glucose 80 mg/dL (65-110); Potassium 4.1 mmol/L (3.4-5.0); Sodium 137 mmol/L (137-145)
[2023-10-29 15:59] LABS: INR 0.9; Partial Thromboplastin Time 26.5 Seconds (22.3-36.8); Prothrombin Time 12.6 Seconds (11.1-14.7)
[2023-10-29 16:05] LABS: Hemoglobin A1C 5.4 % (<5.7)
[2023-10-29 16:10] LABS: Add Urine Microscopic? YES; Appearance Urine Clear (Clear); Bacteria Urine None Seen /hpf; Bilirubin Urine Negative (Negative); Blood Urine Negative (Negative); Color Urine Yellow (Yellow); Glucose Urine UA Negative (Negative); Ketones Urine Negative (Negative); Leukocyte Esterase Ur 1+ LEU/UL (Negative); Need Manual Microscopic Reviewed; Nitrate Urine Negative (Negative); Non Pathogenic Casts 0-2; Protein Urine Negative (Negative); RBC Urine 0-2 /hpf (0-2); Specific Grav Ur 1.013 (1.001-1.035); Squamous Epithelial Cell Urine None Seen /hpf (Few); Urobilinogen Urine 0.2 mg/dL (<2.0); WBC Urine 0-5 /hpf (0-3); pH Urine 5.5 (5.0-9.0)
== END 2023-10-29 14:57 | disposition home or self-care (01) ==
PROVIDERS: PCP Nurse Practitioner; Visit Provider Neurological Surgery
DX: M54.50 Low back pain, unspecified (principal); G89.29 Other chronic pain; Z01.818 Encounter for other preprocedural examination
CPT/HCPCS: 36415; 80048; 81001; 83036; 85027; 85610; 85730; 87077; 87086; 87088; 87186

== ENCOUNTER 2023-11-26 15:45 | Outpatient (CLI) | payer MEDICARE, SELFPAY ==
--- NOTE | ~2023-11-26 | MM_ITS ---
EXAMINATION: MM screening carisa BI w maynor HISTORY: Screening TECHNIQUE: Craniocaudal and mediolateral oblique 3-D tomosynthesis images were obtained and synthetic 2-D images were generated. CAD analysis was submitted and interpreted. COMPARISON: Comparison to multiple prior studies sequentially, with oldest reviewed study dated 06/2021. BREAST PARENCHYMAL COMPOSITION: Not dense: There are scattered areas of fibroglandular density. FINDINGS: There is no evidence of suspicious mass, calcification, or architectural distortion to sugg est malignancy in either breast. There has been no suspicious interval change. IMPRESSION: 1. No mammographic evidence of malignancy. 2. Recommend routine screening mammography in one year. BI-RADS Category 1: Negative Reviewed, dictated and finalized at location B.
== END 2023-11-26 15:46 | disposition home or self-care (01) ==
LOC: ANHIMG 15:46
PROVIDERS: PCP Nurse Practitioner; Visit Provider Nurse Practitioner
DX: Z12.31 Encounter for screening mammogram for malignant neoplasm of breast (principal)
CPT/HCPCS: 77063; 77067

== ENCOUNTER 2023-12-02 02:03 | Day surgery (SDC) | payer MEDICARE, SELFPAY ==
--- NOTE | 2023-07-08 09:31 | PC.NURSE ---
Report to the Outpatient Waiting Room, entrance under the green pavilion located off [facility], at time _6:00 AM on date _07/22/23 . Planned Procedure Time: __7:30 AM . Time changes happen often and if your time is changed the preop area will call you the afternoon before. - You and your visitor will be asked to self-screen and do not enter if you have any COVID symptoms. - A mask is optional within the hospital at this time. Patients may have clear liquids (water, carbonated beverages, clear teas, apple juice) until 3 hours prior to surgery ( 4:30 AM)with a maximum of 20 ounces. - No food from midnight until time of surgery - Infants may have breast milk until 4 hours before surgery, infant formula 6 hours prior to surgery. - Children will be allowed to drink immediately following surgery. If applicable, please bring a bottle or sippy cup to assist with drinking. Juice, water, soda, and popsicles are readily available. For infants on formula, please bring formula the day of surgery. Pacifiers are allowed. Take the following medications with a SIP of water the morning of surgery: __ALPRAZOLAM,DULOXETINE,HYDROCODONE IF NEEDED FOR PAIN,LEVOTHYROXINE,METOPROLOL,PREGABALIN DO NOT STOP ANY OF YOUR OTHER PRESCRIPTION MEDICATIONS PRIOR TO SURGERY ?EXCEPT THE FOLLOWING Medications to discontinue per physician __PT STATES HOLD ASPIRIN 7 DAYS PRE OP PER DR SO. LAST DOSE 07/14/23 HOLD ALL VITAMINS AND SUPPLEMENTS 3 DAYS PRE LAST DOSE 07/18/23 Please no make-up, nail english, hairspray, perfume, deodorant, or body powder the day of surgery. No jewelry (including any body piercings) or valuables the day of surgery, leave them at home. Please take a shower or bath the night before, or the morning of, surgery with an antibacterial soap. Wear comfortable, loose fitting clothing. Children are encouraged to wear pajamas. - Jewelry must be removed prior to entering the operating room. Rings and piercings that are not removed may be cut off. - The hospital will not accept responsibility for valuables. - Please leave all valuables, including medications, at home the day of surgery. If you are going home after surgery, a licensed over the road driver must drive you home. - NO public transportation without another adult if you receive anesthesia. - We recommend that an adult stay with you for 24 hours following discharge. - We also recommend that you do not drive, make important decision, drink alcoholic beverages, or take any drugs that were not prescribed by your health care provider for at least 24 hours after your discharge time. Follow any additional instructions given to you from your surgeon. If you or anyone in your household have experienced Covid symptoms in the past week, please notify your surgeon or the nurse liaison at the phone number below for possible testing. Telephone instructions given to __PATIENT and asked if any additional questions and then verbalized understanding. Patient advised to call surgeon office or pre surgery nurse liaison [phone] if any additional questions.
[2023-07-08 09:52] VITALS: BMI 31.0
[2023-10-29 10:58] VITALS: BMI 31.2
--- NOTE | 2023-10-29 11:23 | PC.NURSE ---
Report to the Outpatient Waiting Room, entrance under the green pavilion located off [facility], at time _9:00AM_ on date _11/04/23_. Planned Procedure Time: __11:00AM .? Time changes happen often and if your time is changed the preop area will call you the afternoon before. - You and your visitor will be asked to self-screen and do not enter if you have any COVID symptoms. Please call surgeon if you need to reschedule. - A mask is optional within the hospital at this time. Patients may have clear liquids (water, carbonated beverages, clear teas, apple juice) until 3 hours prior to surgery with a maximum of 20 ounces. - No food from midnight until time of surgery and no smoking. Take only the following medications with a SIP of water on the morning of surgery: ___DULOXETINE, LEVOTHYROXINE, PREGABALIN. MAY TAKE ALPRAZOLAM, HYDROCODONE & ONDANSETRON NEEDED. DO NOT STOP ANY OF YOUR OTHER PRESCRIPTION MEDICATIONS PRIOR TO SURGERY EXCEPT THE FOLLOWING Medications to discontinue per physician __HOLD ASPIRIN 5 DAYS PRE-OP PER DR SO (PER PATIENT)- LAST DOSE 10/29/23. _HOLD ALL VITAMINS/SUPPLEMENTS 3 DAYS PRE-OP PER ANESTHESIA- LAST DOSE 10/31/23. Please no make-up, nail occitan, hairspray, perfume, deodorant, or body powder the day of surgery.? No jewelry (including any body piercings) or valuables the day of surgery, leave them at home.? Please take a shower or bath the night before, or the morning of, surgery with an antibacterial soap.? Wear comfortable, loose fitting clothing.? - Jewelry must be removed prior to entering the operating room.? Rings and piercings that are not removed may be cut off. - The hospital will not accept responsibility for valuables.? - Please leave all valuables, including medications, at home the day of surgery. If you are going home after surgery, a licensed [place] driver must drive you home.? - NO public transportation without another adult if you receive anesthesia. - We recommend that an adult stay with you for 24 hours following discharge. - We also recommend that you do not drive, make important decision, drink alcoholic beverages, or take any drugs that were not prescribed by your health care provider for at least 24 hours after your discharge time. Follow any additional instructions given to you from your surgeon. Telephone instructions given to ___PATIENT and asked if any additional questions and then verbalized understanding. Patient advised to call surgeon office or pre surgery nurse liaison [phone] if any additional questions.
--- NOTE | 2023-11-26 13:46 | PC.NURSE ---
Report to the Outpatient Waiting Room, entrance under the green pavilion located off [facility], at time __0600am___on date _12/02/23 . Planned Procedure Time: __07:30am .? Time changes happen often and if your time is changed the preop area will call you the afternoon before. - You and your visitor will be asked to self-screen and do not enter if you have any COVID symptoms. Please call surgeon if you need to reschedule. - A mask is optional within the hospital at this time. Patients may have clear liquids (water, carbonated beverages, clear teas, apple juice) until 3 hours prior to surgery with a maximum of 20 ounces. - No food from midnight until time of surgery and no smoking Take only the following medications with a SIP of water on the morning of surgery: ____Duloxetine, Levothyroxine, Pregabalin. May take Alprazolam, Hydrocodone and Ondansetron as needed. DO NOT STOP ANY OF YOUR OTHER PRESCRIPTION MEDICATIONS PRIOR TO SURGERY EXCEPT THE FOLLOWING Medications to discontinue per physician Hold Aspirin 5 days pre-op per Dr Gao (Per Pt) last dose _11/26/23 Hold all vitamins, supplements, herbs and probiotics 3 days prior to surgery per Anesthesia. Date to take last dose___11/28/23 Please no make-up, nail thai, hairspray, perfume, deodorant, or body powder the day of surgery.? No jewelry (including any body piercings) or valuables the day of surgery, leave them at home.? Please take a shower or bath the night before, or the morning of, surgery with an antibacterial soap.? Wear comfortable, loose fitting clothing.? - Jewelry must be removed prior to entering the operating room.? Rings and piercings that are not removed may be cut off. - The hospital will not accept responsibility for valuables.? - Please leave all valuables, including medications, at home the day of surgery. If you are going home after surgery, a licensed transit mixer driver must drive you home.? - NO public transportation without another adult if you receive anesthesia. - We recommend that an adult stay with you for 24 hours following discharge. - We also recommend that you do not drive, make important decision, drink alcoholic beverages, or take any drugs that were not prescribed by your health care provider for at least 24 hours after your discharge time. For Pediatric surgeries, we recommend two adults accompany the child home. Follow any additional instructions given to you from your surgeon. Telephone instructions given to __patient and asked if any additional questions and then verbalized understanding. Patient advised to call surgeon office or pre surgery nurse liaison [phone] if any additional questions.
--- NOTE | 2023-11-26 14:02 | PC.NURSE ---
Pt states no changes in health history since initial interview. New Preop Instructions reviewed with pt over phone, she verbalized understanding and denies further questions at this time. Pt completed her recent Antibiotics and states last urine was clear. YARELIS.
[2023-12-02] VITALS (16 sets, daily range): BP systolic 103–134; BP diastolic 42–78; PULSE 90–101; RESP 12–19; TEMP 36.2–36.9; O2SAT 92–100
--- NOTE | ~2023-12-02 | XR_ITS ---
EXAMINATION: XR fluoroscopy no charge DATE: 12/02/2023 09:39 INDICATION: T8 laminectomy for spinal cord stimulator. TECHNIQUE: A single intraoperative fluoroscopic view of the thoracic spine was obtained. I was not pr esent. Fluoroscopy exposure time was 16 seconds. COMPARISON: None. FINDINGS: Electrodes overlie the thoracic spine. IMPRESSION: 1. Electrode overlie the thoracic spine. Reviewed, dictated and finalized at location A.
--- NOTE | 2023-12-02 06:37 | WPDANESEPPF ---
Anes - Initial Pre Proc Eval Procedure: Operation Date: 07/22/23 07:30 Proposed Procedures p T8 Laminotomy For Spinal Cord Stimulator Placement - Chula Gao MD Operation Date: 12/02/23 07:30 Proposed Procedures p T8 Laminectomy for Spinal Cord Stimulator Placement - Chula Gao MD Date/Time: 12/02/23 06:37 Surgeon: Chula Gao MD Pre Op Diagnosis: Chr Low Back Pain Patient Data Age: 78 Gender: F Height: 1.6 m Weight: 80 kg Allergies Allergy/AdvReac Type Severity Reaction Status Date / Time Penicillins Allergy Unknown Rash Verified 11/26/23 13:51 erythromycin base AdvReac Unknown Diarrhea Verified 11/26/23 13:51 Home Medications Medication Instructions Recorded Confirmed Type ferrous sulfate 325 mg (65 mg 325 mg PO TID 10/25/19 11/26/23 History iron) tablet calcium carbonate 500 mg PO DAILY #90 tabs 06/06/20 11/26/23 Rx cholecalciferol (vitamin D3) 50 50 mcg PO DAILY #90 tabs 06/06/20 11/26/23 Rx mcg (2,000 unit) tablet blood-glucose meter (OneTouch #1 ea 01/29/21 11/26/23 Rx Verio Flex Start kit) blood sugar diagnostic (OneTouch #180 ea 04/08/21 11/26/23 Rx Verio test strips) naloxone 4 mg/actuation nasal 1 spray intranasal Q2-3M PRN 07/03/22 11/26/23 Rx spray (Narcan) opioid overdose #2 ea atorvastatin 10 mg tablet 10 mg PO DAILY #100 tabs 07/11/22 11/26/23 Rx ascorbic acid (vitamin C) 1,000 mg 1 g PO BID 08/13/22 11/26/23 History capsule aspirin 81 mg tablet 81 mg PO DAILY 08/13/22 11/26/23 History cetirizine 10 mg tablet 10 mg PO DAILY PRN Allergy Symptoms 08/13/22 11/26/23 History nystatin 100,000 unit/gram topical 1 applic topical BID PRN Rash 08/13/22 11/26/23 History powder flash glucose sensor (FreeStyle #1 ea 09/12/22 11/26/23 Rx Tiera 2 Sensor kit) flash glucose scanning reader #1 ea 09/30/22 11/26/23 Rx (FreeStyle Tiera 2 [place]) ondansetron HCl 4 mg tablet 4 mg PO Q6H PRN Nausea #60 tabs 11/21/22 11/26/23 Rx cyanocobalamin (vitamin B-12) 500 500 mcg PO 3XW 12/15/22 11/26/23 History mcg tablet upadacitinib 15 mg tablet,extended 15 mg PO DAILY #30 tabs 12/29/22 11/26/23 Rx release 24 hr (Rinvoq) magnesium oxide 400 mg PO DAILY 12/31/22 11/26/23 History losartan 100 mg tablet 100 mg PO DAILY #100 tabs 02/27/23 11/26/23 Rx potassium chloride 20 mEq 20 meq PO BID #180 tabs 06/14/23 11/26/23 Rx tablet,extended release leflunomide 10 mg tablet 10 mg PO DAILY #90 tabs 06/26/23 11/26/23 Rx semaglutide 2 mg/dose (8 mg/3 mL) See Rx Instructions .Route 07/27/23 11/26/23 Rx subcutaneous pen injector (Ozempic) .COMPLEX #3 mL folic acid 1 mg tablet 1 mg PO DAILY #90 tabs 08/10/23 11/26/23 Rx furosemide 40 mg tablet (Lasix) 40 mg PO DAILY #90 tabs 08/10/23 11/26/23 Rx omeprazole 40 mg capsule,delayed 40 mg PO DAILY #90 caps 08/10/23 11/26/23 Rx release levothyroxine 100 mcg tablet 100 mcg PO DAILY #90 tabs 09/04/23 11/26/23 Rx (Euthyrox) pioglitazone 30 mg tablet 30 mg PO DAILY #100 tabs 09/07/23 11/26/23 Rx alprazolam 0.5 mg tablet (Xanax) 0.5 mg PO BID PRN Anxiety #60 tabs 10/22/23 11/26/23 Rx cyclobenzaprine 10 mg tablet 10 mg PO BID PRN muscle spasm #60 10/22/23 11/26/23 Rx tabs trazodone 100 mg tablet 100 mg PO .COMPLEX PRN sleep #180 10/22/23 11/26/23 Rx tabs alendronate 70 mg tablet 70 mg PO WEEKLY #12 tabs 10/23/23 11/26/23 Rx duloxetine 60 mg capsule,delayed 60 mg PO BID 10/29/23 11/26/23 History release metoprolol succinate 25 mg 25 mg PO HS 10/29/23 11/26/23 History tablet,extended release 24 hr metformin 1,000 mg tablet See Rx Instructions .Route 11/12/23 11/26/23 Rx .COMPLEX #180 tabs pregabalin 100 mg capsule (Lyrica) 100 mg PO BID #180 caps 11/13/23 11/26/23 Rx hydrocodone 5 mg-acetaminophen 325 1 tablet PO TID PRN Pain #90 tabs 11/30/23 Rx mg tablet Patient hx anesthesia problems: none Family hx anesthesia problems: none Results Review: All pre-operative results and documents have been reviewed
[2023-12-02] MEDS: LACTATED RINGERS 1,000 ML 30 ML IV CONT ×3 (06:45→09:21)
--- NOTE | 2023-12-02 07:16 | WPDHPUPDATE1 ---
History and Physical Update Update Date/Time: 12/02/23 07:16 History and Physical has been reviewed, including an updated exam of the patient. There are NO changes in the patient's condition. Risks, benefits, and alternatives have been discussed and questions answered. Patient agrees to proceed with procedure.
--- NOTE | 2023-12-02 07:17 | PM.IMHP ---
H&P: HPI History of Present Illness Date/Time: 12/02/23 07:17 Chief Complaint: back pain Narrative: Ms. Jerome is a 78-year-old female with history of diabetes, CKD, rheumatoid arthritis, fibromyalgia, and CHF who was referred by [facility] for evaluation of spinal cord stimulator placement. She has a long history of low back pain with radiation into both legs into the ankles. Her symptoms are constant but worsened with bending and lifting in particular. She had physical therapy in the past and currently takes [place] at nighttime. She actually saw Dr. Wilde for these symptoms about a year ago who recommended referral to Pain Management. She had a number of injections through pain management including epidural steroid injections at L2-3 and L4-5 as well as medial branch blocks without any long-lasting relief. She recently had a spinal cord stimulator trial with about 80% improvement in her symptoms. Her diabetes is well controlled with a recent A1c being under 6%. She takes a baby aspirin daily. She follows with Dr. Garcia of Cardiology here at [facility]. Review of Systems Review of Systems: All systems reviewed & are unremarkable except as noted in HPI and below PMFSH Past Medical History Medical History Adhesive capsulitis of right shoulder Anemia Anxiety Arthritis Arthritis of left knee Bilateral hand pain Bilateral shoulder pain Bilateral shoulder region arthritis BMI 38.0-38.9,adult COVID-19 Degenerative joint disease (DJD) of lumbar spine Depression Diabetes a1c=6.9 (04/05/19) Fibromyalgia (~2009) Gastric ulcer without hemorrhage or perforation Generalized osteoarthritis of multiple sites (~2009) Hemoglobin A1c less than 7.0% 6.9 on 04/05/19 Hip pain, bilateral Hypertension Lumbar and sacral arthritis Mass of both axillae Osteoarthritis of left knee Renal insufficiency Screening for breast cancer Seronegative rheumatoid arthritis of both hands (~2014) Stroke Surgical History Surgical History H/O cataract extraction H/O elbow surgery H/O: hysterectomy History of carpal tunnel release History of hip replacement 03/2018 History of knee surgery 12/2013 Dr. Peña Hx of cholecystectomy Family History Family History Father Hypertension Family history of diabetes mellitus in first degree relative Mother Hypertension Other Diabetes mellitus Family history of cardiovascular disease Family history of malignant neoplasm Social History Social History Smoking packs per day: 0.25 Smoking cigarettes per day: 5.0 Years smoked: 15 Smoking pack-years: 3.75 Smoking status: Former smoker Tobacco type: cigarettes Smoking end date: 08/23/84 Alcohol intake: former Alcohol use details: occasional Substance use: never Substance use type: does not use Do You Feel Safe in your Home?: Yes Lack of Transportation: No Lack of Food: Never True Current Housing: I Have Housing Concerned About Future Housing: No Difficulty Paying Gas/Electric Bills: No Difficulty Paying for Meds: No Currently Unemployed: No Education: Master's Degree or Higher Difficulty w/ Childcare or Family Care: No Living arrangements: with family Additional living arrangements comments: Occupation/Education: retired Gender identity (if verbalized by the patient): Female Sexual Orientation (if Verbalized by the Patient): Straight or Heterosexual Spiritual care concerns: No Meds Home Medications and Allergies Home Medications Medication Instructions Recorded Confirmed Type ferrous sulfate 325 mg (65 mg 325 mg PO TID 10/25/19 11/26/23 History iron) tablet calcium carbonate 500 mg PO DAILY #90 tabs 06/06/20 11/26/23 Rx cholecalciferol (vitamin D3) 50 50
[2023-12-02 07:27] LABS: Glucose Point of Care 87 mg/dl (65-105)
[2023-12-02] MEDS: ceFAZolin 2 GM/D5W 50 ML 2 GM/50 ML BAG IVPB (07:34)
[2023-12-02] MEDS: BUPIVACAINE/EPINEPHRINE 0.5% 50 ML VIAL 10 ML INFILTRATE (08:09)
[2023-12-02] MEDS: VANCOMYCIN HCL 1,000 MG VIAL 1000 MG TOPICAL (08:11)
--- NOTE | 2023-12-02 09:26 | PM.OP ---
Procedure Note - Brief Procedure Note - Brief Date of procedure: 12/02/23 Chr Low Back Pain Post-op diagnosis: Same Procedure performed: T8 laminotomy for placement of Sullivan spinal cord stimulator Surgeon: Chula Gao MD Piece Dye Worker: Misti Anesthesia: GETDavid Findings: Successful placement on first attempt Drains: No Packing: No Pathology: None sent Complications: None Condition: Stable Disposition: PACU
[2023-12-02 09:27] LABS: Glucose Point of Care 133 mg/dl (65-105)
[2023-12-02] MEDS: fentaNYL CITRATE INJ (*CRX) 100 MCG/2 ML VIAL 25 MCG IV PUSH ×2 (09:35→09:43)
[2023-12-02] MEDS: oxyCODONE HCL (*CRX) 5 MG TAB IR PO (12:39)
--- NOTE | 2023-12-02 12:40 | W.PM.PROC2 ---
Procedure Note - Detailed Date of Procedure 12/02/23 Pre-op Diagnosis Chr Low Back Pain Post-op Diagnosis Same Procedure Performed 1. T8 laminotomy for placement of spinal cord stimulator 2. Placement of generator in right gluteal region Surgeon Chula Gao MD [employer] Sales Representative Misti Anesthesia General Indications Ms. Jerome is a 78-year-old female with a long history of lower back pain radiating in both legs to the ankles which has been unresponsive to physical therapy, pain management, and oral medications. she does not have an obvious surgical solution that would guarantee relief of her symptoms, so she had a spinal cord stimulator trial with 80% improvement in her symptoms. According to the rep, there were stimulating across the T7 vertebral body. She had a recent MRI thoracic spine that does not show any obvious pathology that would prohibit placement of an epidural paddle. I recommended surgery in the form of a T8 laminotomy for placement of spinal cord stimulator. We discussed risks including bleeding, pain, infection, weakness, paralysis, spinal cord damage, failure to relieve symptoms, and anesthetic complications. She gave written informed consent to proceed. Description of Procedure The patient was brought to the OR where general anesthesia was induced. The patient was turned prone onto the OR table with Pascual frame. All pressure points were padded. C-arm was used to plan the level of the thoracic incision. A right gluteal incision was also planned for the generator site. The surgical site was prepped and draped in usual sterile fashion. Perioperative antibiotics were given. Local anesthesia was injected into the planned incisions. A 10-blade scalpel was used to open the right gluteal incision. A bovie was used to create a subcutaneous pocket inferiorly. The pocket was packed with a wet Raytec. Next, the thoracic incision was opened with the scalpel, and the soft tissue was dissected with the bovie. The laminae were exposed bilaterally at T8. This was confirmed with the C-arm. A laminotomy was performed at the inferior portion of T8 with the [place]ell, high-speed drill, and carrol. No significant ligamentum flavum was noted at this level. The laminotomy opening was widened laterally. The paddle stimulator was then placed into the epidural space. Xrays confirmed appropriate positioning in line with the desired placement based on the trial. Anchors were placed into the leads which were attached to the muscle. The leads were tunneled to the gluteal incision. A final xray was obtained to ensure stable placement. The leads were connected to the generator which was then placed into the gluteal pocket. The generator was secured with a silk suture. All incisions were irrigated copiously. Hemostasis was ensured in the thoracic incision with the bipolar and Surgiflo. Stimulon beads were placed into both incisions. The fascia was closed with 0 vicryl. The dermis was closed with 2-0 and 3-0 vicryl. The dermis at the generator site was closed with 2-0 vicryl. The skin was closed in both incisions with 4-0 monocryl. Dermabond was then placed. The patient was returned supine, extubated, and transferred to PACU. Billing codes: 67575, 50792 Estimated Blood Loss 25 Drains No Packing No Pathology None sent Complications None Condition Stable Disposition PACU [facility] Billing Surgery - Charge Forward: Surgery Billing
== END 2023-12-02 12:50 | disposition home or self-care (01) ==
PROVIDERS: PCP Nurse Practitioner; Visit Provider Neurological Surgery
PROC: (CPT 63685; principal; 2023-12-02 07:30)
DX: M54.50 Low back pain, unspecified (principal); G89.29 Other chronic pain; M47.816 Spondylosis without myelopathy or radiculopathy, lumbar region; D64.9 Anemia, unspecified; F41.9 Anxiety disorder, unspecified; F32.A Depression, unspecified; I10 Essential (primary) hypertension; E11.9 Type 2 diabetes mellitus without complications; M79.7 Fibromyalgia; M06.042 Rheumatoid arthritis without rheumatoid factor, left hand; M06.041 Rheumatoid arthritis without rheumatoid factor, right hand; Z86.73 Personal history of transient ischemic attack (TIA), and cerebral infarction without residual deficits; Z79.82 Long term (current) use of aspirin; Z79.85 Long-term (current) use of injectable non-insulin antidiabetic drugs; Z79.84 Long term (current) use of oral hypoglycemic drugs; Z79.620 Long term (current) use of immunosuppressive biologic; Z79.891 Long term (current) use of opiate analgesic; Z87.891 Personal history of nicotine dependence; E66.9 Obesity, unspecified; Z68.32 Body mass index [BMI] 32.0-32.9, adult
CPT/HCPCS: 63685; 63655; 36415; 80048; 81001; 82948; 83036; 85027; 85610; 85730; 87077; 87086; 87088; 87186; 99199; A9270; C1778; C1820; J0330; J0461; J0690; J1100; J1596; J2003; J2371; J2405; J2704; J3010; J3370; J7120

== ENCOUNTER 2024-05-03 13:40 | Outpatient (CLI) | payer MEDICARE, SELFPAY ==
--- NOTE | ~2024-05-03 | CT_ITS ---
CT sinus wo con Ordering provider: Gian Weaver APRN History: . J32.9 - Chronic sinusitis, unspecified . Comparison: None. Technique: Thin slice Scans CT of the paranasal sinuses was performed with coronal and sagittal refor matted images. No IV contrast. . Automated exposure control and iterative reconstruction technique w ere employed. The dose-length product was 248.16 mGy-cm. Findings: NASAL SEPTUM: midline. OSTEOMEATAL UNITS: Bilaterally patent. NASAL TURBINATES AND NASOPHARYNX: Normal. PARANASAL SINUSES: Left maxillary sinus disease. Bilateral sphenoid sinus disease. Otherwise, Well a erated. VISUALIZED MASTOIDS: Normal as visualized. BONES: Normal. Calcifications seen in the left temporal dura. SUPERFICIAL SOFT TISSUES/VISUALIZED BRAIN PARENCHYMA: Normal. IMPRESSION: Bilateral sphenoid and left maxillary sinus disease. Reviewed, dictated and finalized at location A.
== END 2024-05-03 13:41 | disposition home or self-care (01) ==
LOC: MICIMG 13:42
PROVIDERS: PCP Nurse Practitioner; Visit Provider Nurse Practitioner
DX: J32.0 Chronic maxillary sinusitis (principal)
CPT/HCPCS: 70486

== ENCOUNTER 2024-06-30 14:11 | Outpatient (CLI) | payer MEDICARE, SELFPAY ==
--- OUTSIDE RECORDS SUMMARY | 2024-06-30 14:18 | XMS_ITS | Clinical Summary ---
Author Organization [facility] Jose Conner Address [address] [place] [address] Care Team Providers Care Supervisor Frame Sample And Pattern Name Role Phone Sid Wright Primary Care Provider [phone] Allergies Active Allergy Reactions Criticality Noted Date Comments Ciprofloxacin Rash Low 12/14/2023 Erythromycin Diarrhea,Hives High 11/27/2015 Erythromycin Base Hives High 01/13/2019 Penicillins Rash Medium 11/27/2015 Medications pregabalin (LYRICA) 100 mg Capsule Take 100 mg by mouth every 12 hours. 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 Active omeprazole (PriLOSEC) 40 mg Capsule, Delayed Release(E.C.) Take 40 mg by mouth daily. Active folic acid (FOLVITE) 1 mg tablet Take 1 mg by mouth daily. Active DULoxetine (CYMBALTA) 60 mg Capsule, Delayed Release(E.C.) Take 60 mg by mouth 2 times daily. Active potassium chloride (KLOR-CON) 20 mEq Extended Release tablet Take 20 mEq by mouth. 11/14/19 17 Active latanoprost (XALATAN) 0.005 % solution INT 1 GTT IN OU HS 4 12/29/19 19 Active HYDROcodone-a cetaminophen (NORCO) 5-325 mg tablet TK 1 T PO TID PRF PAIN 0 11/24/19 19 Active furosemide (LASIX) 40 mg tablet TK 1 T PO QD 0 10/29/19 19 Active flu vaccine trivalent (65 yr+)(PF)(FLUZ ONE HIGH DOSE) 180 mcg/0.5 mL IM syringe Fluzone High-Dose (PF) 180 mcg/0.5 mL intramuscular syringe TO BE ADMINISTERED BY PHARMACIST FOR IMMUNIZATION Active ONETOUCH ULTRA BLUE TEST STRIP Strip U UTD TO TEST BLOOD GLUCOSE ONCE D 2 10/19/19 19 Active atorvastatin (LIPITOR) 10 mg tablet atorvastatin 10 mg tablet Active aspirin (ECOTRIN EC) 81 mg Tablet, Delayed Release (E.C.) Take 81 mg by mouth. 11/27/19 16 Active ondansetron (ZOFRAN) 4 mg Tablet ondansetron HCl 4 mg tablet Active ALPRAZolam (XANAX) 0.5 mg tablet TK 1 T PO TID PRN 0 11/24/19 19 Active upadacitinib (Rinvoq) 15 mg Tablet Sustained Release 24HR Take 15 mg by mouth daily. Active OneTouch Verio Flex meter USE TO CHECK GLUCOSE TWICE DAILY 02/23/19 21 Active traZODone (DESYREL) 100 mg tablet TAKE 2 TABLETS BY MOUTH AT BEDTIME FOR SLEEP 02/21/20 20 Active naloxone (NARCAN) 4 mg/spray [place], Non-Aerosol EMERGENCY USE ONLY: Administer 1 spray (4 mg) in one nostril one time. May repeat in alternating nostrils every 2-3 min until responsive or EMS arrives. 2 Each 3 03/07/19 21 Active alendronate (FOSAMAX) 70 mg tablet 06/08/19 21 Active ascorbic acid, vitamin C, (VITAMIN C) 500 mg tablet Take 1,000 mg by mouth daily. Active cyanocobalami n (VITAMIN B-12) 500 mcg tablet Take 500 mcg by mouth daily. Active Cholecalcifer ol, Vitamin D3, 50 mcg (2,000 unit) Capsule Take by mouth. Activ e cholecalcifer ol, vitamin D3, 5,000 unit Take 400 Units by mouth daily. Active calcium as carbonate (OS-QUYNH) 1,250 mg (500 mg elemental) tablet Take 1 Tablet by mouth daily. Active cetirizine (ZyrTEC) 10 mg tablet Take 10 mg by mouth 1 time daily as needed. Active cyclobenzapri ne (FLEXERIL) 10 mg tablet TAKE 1 TABLET BY MOUTH TWICE DAILY NEEDED FOR MUSCLE SPASM 04/21/19 22 Active OneTouch Delica Plus Lancet 33 gauge 04/29/19 22 Active metFORMIN (GLUCOPHAGE) 1,000 mg tablet 02/12/20 21 Active methotrexate (RHEUMATREX) 2.5 mg Tablet TAKE 3 TABLETS BY MOUTH ONCE A WEEK 04/08/19 22 Active metoprolol succinate (TOPROL XL) 25 mg Extended Release 24 hour tablet Take 25 mg by mouth daily. 02/19/20 21 Active Nystop 100,000 unit/gram powder APPLY TOPICALLY TWICE DAILY 02/20/20 21 Active pioglitazone (ACTOS) 30 mg tablet Take 30 mg by mouth daily. 02/27/19 22 Active tiZANidine (ZANAFLEX) 4 mg Tablet Take 4 mg by mouth every 6 hours as needed. 08/14/19 22 Active Paxlovid, EUA, 150 mg x 2- 100 mg oral pack TAKE 1 TABLET OF NIRMATRELVIR AND ONE 100MG RITONAVIR TWICE DAILY FOR 5 DAYS 08/06/19 Active traMADoL (ULTRAM) 50 mg tablet Take 50 mg by mouth every 8 hours as needed. 08/16/19 22 Active leflunomide (ARAVA) 10 mg tablet Take 10 mg by mouth daily. 07/10/19 23 Active ferrous sulfate 325 mg (65 mg iron) tabletIndicat ions:Chronic anemia TAKE 1 TABLET BY MOUTH THREE TIMES DAILY WITH MEALS 90 Tablet 06/30/19 25 Active ferrous sulfate 325 mg (65 mg iron) tabletIndicat ions:Chronic anemia TAKE 1 TABLET BY MOUTH THREE TIMES DAILY WITH MEALS 90 Tablet 05/24/19 25 025 Discontinued Active Problems Problem Noted Date Diagnosed Date Type 2 diabetes mellitus without complication Normocytic anemia 01/13/2019 Encounters Date Type Department Care Team Description 06/27/2024 [facility] Oncology and Hematology - [place] [address] [place] [address] Jackson Mariscal MD Chronic anemia 05/23/2024 [facility] Oncology and Hematology - [place] [address] [place] [address] Jackson Mariscal MD Chronic anemia 05/11/2024 External Device Data [facility] ABSTRACTION Provider, Abstract 04/30/2024 External Device Data [place]CTION Provider, Abstract 04/29/2024 External Device Data [place] ABSTRACTION Provider, Abstract 04/26/2024 [facility] Oncology and Hematology - [place] [address] [place] [phone] Jackson Mariscal MD Chronic anemia 04/13/2024 External Device Data [place] ABSTRACTION Provider, Abstract from Last 3 Months Family History Medical History Relation Name Comments Diabetes Brother 2 Cancer Father Diabetes Father Heart Disease Father Cancer Mother Heart Disease Mother Relation Name Status Comments Brother 1 Alive Brother 2 Brother 3 Alive Father Mother Sister 1 Alive Sister 2 Alive Sister 3 Alive Sister 4 Alive Social History Tobacco Use Types Packs/Day Years Used Date Smoking Tobacco: Never Smokeless Tobacco: Never Tobacco Cessation:Counseling Given: Not Answered Alcohol Use Standard Drinks/Week Comments Never 0 (1 standard drink = 0.6 oz pur e alcohol) Comments No Sex and Gender Information Value Date Recorded Sex Assigned at Not on file Legal Sex Female 10:36 AM CDT Gender Identity Not on file Sexual Orientation Not on file Last Filed Vital Signs Vital Sign Reading Time Taken Comments Blood Pressure 118/60 12/14/2023 1:14 PM CDT Pulse 99 12/14/2023 1:14 PM CDT Temperature 36.4 C (97.5 F) 12/14/2023 1:14 PM CDT Respiratory Rate 15 12/14/2023 1:14 PM CDT Oxygen Saturation 93% 12/14/2023 1:14 PM CDT Inhaled Oxygen Concentration - - Weight 79.3 kg (174 lb 12.8 oz) 12/14/2023 1:14 PM CDT Height 160 cm (5' 3 ) 12/03/2021 2:23 PM CDT Body Mass Index 30.96 12/03/2021 2:23 PM CDT Plan of Treatment Health Maintenance Due Date Last Done Comments DIABETES ANNUAL FOOT EXAM 1964 DIABETES HBA1C Q 6 MONTHS 1964 DIABETES MICROALBUMIN ANNUAL SCREEN 1964 LDL CHOLESTEROL ANNUAL 1964 DTAP/TDAP/TD VACCINES (1 - Tdap) 1965 PNEUMOCOCCAL VACCINE 50+ YEA RS (1 of 2 - PCV) 1965 OSTEOPOROSIS SCREENING 2011 RSV VACCINE (60+ or ) (1 - 1-dose 75+ series) 2021 INFLUENZA VACCINE (#1) 2023 , 12/06/2019, 11/29/2018, Additional history exists DIABETES ANNUAL RETINAL EXAM 03/13/2024, 09/05/2022, 02/13/2022, Additional history exists Colorectal Cancer Screening Discontinued FIT/FOBT Q 1 year Discontinued 01/05/2019 ZOSTER VACCINE Completed 02/28/2020, 12/06/2019 COLORECTAL SCREENING Discontinued FIT-DNA Q 3 years Discontinued Flex Sig/CT Colonography Q 5 years Discontinued Procedures Procedure Name Priority Date/Time Associated Diagnosis Comments VITAMIN B12 AND FOLATE Routine 06/22/2024 12:53 PM CDT Chronic anemia IRON, TIBC, AND PERCENT SATURATION Routine 06/22/2024 12:53 PM CDT Chronic anemia FERRITIN Routine 06/22/2024 12:53 PM CDT Chronic anemia OCCULT BLOOD IMMUNOASSAY, COLORECTAL SCREEN Routine 01/05/2019 7:30 AM TOP DISTRIBUTION EXECUTIVE from Last 3 Months or Most Recently Relevant to Health Maintenance Results * VITAMIN B12 AND FOLATE (06/22/2024 12:53 PM CDT) VITAMIN B12 860 200 - 1100 pg/mL [facility] FOLATE, SERUM >24.0 ng/mL [facility] Comment: Reference Range Low: <3.4 Borderline: 3.4-5.4 Normal: >5.4 FASTING:NO FASTING: NO Test Performed at: [facility] [id number] [id number] Coty Adams MD Blood 06/22/2024 12:5 3 PM CDT 06/22/2024 12:56 PM CDT us Jackson Mariscal MD CHEMISTRY ORDERABLES Final Resu lt [facility] [phone] [facility] [address] [place] [phone] * (ABNORMAL) IRON, TIBC, AND PERCENT SATURATION (06/22/2024 12:53 PM CDT) [facility] IRON 147 45 - 160 mcg/dL [facility] TIBC 279 250 - 450 mcg/dL (calc) [facility] IRON % SATURATION 53(H) 16 - 45 % (calc) [facility] Comment: FASTING:NO FASTING: NO Test Performed at: [facility] [address] Coty Adams MD Blood 06/22/2024 12:5 3 PM CDT 06/22/2024 12:56 PM CDT Jackson Mariscal MD CHEMISTRY ORDERABLES Final Resu lt Performing Organization Address City/[facility]/ZIP Co de Phone Number [facility] [phone] [facility] [address] * (ABNORMAL) FERRITIN (06/22/2024 12:53 PM CDT) [facility] FERRITIN 456(H) 16 - 288 ng/mL [facility] Comment: Test Performed at: [facility] [address] Coty Adams MD Blood 06/22/2024 12:5 3 PM CDT 06/22/2024 12:56 PM CDT Jackson Mariscal MD CHEMISTRY ORDERABLES Final Resu lt [facility] [phone] [facility] [address] * OCCULT BLOOD IMMUNOASSAY, COLORECTAL SCREEN (01/05/2019 7:30 AM TOP DISTRIBUTION EXECUTIVE) [facility] FECAL GLOBIN Back& [facility] Comment: FECAL GLOBIN BY IMMUNOCHEMISTRY MICRO NUMBER: [id number] TEST STATUS: FINAL SPECIMEN SOURCE: INSURE (TM) FOBT TEST CARD SPECIMEN QUALITY: ADEQUATE Fecal Globin: Not Detected SPLIT 01/03/2019 FROM [id number] Test [facility]formed [facility] [address] [id number] Jonatan Anderson D.O., MPH 01/05/2019 7:30 AM TOP DISTRIBUTION EXECUTIVE Jackson Mariscal MD BODY FLUIDS AND STOOLS Edited R esult - Final Back& [facility] [address] [place] [address] from Last 3 Months or Most Recently Relevant to Health Maintenance [facility] Care Teams Supervisor Frame Sample And Pattern Relationship Specialty Start Date End Date Sid Wright DO [address] [facility] [address] [place] [address] PCP - General Internal Medicine 12/14/23
--- OUTSIDE RECORDS SUMMARY | 2024-06-30 14:18 | XMS_ITS ---
Author Name Auto Generated, Auto Generated Organization [email or web address] Address [address] [place] [address] Phone [phone] Care Team Providers Care Social Work Msw Name Role Phone Jai Galeano Unavailable Mel Doty Unavailable [phone] Bianka Cobos Unavailable Esther Hollis Unavailable [phone] Functional Status No Results Mental Status No Results Allergies and Intolerances Name Onset Date Reaction Severity erythromycin base (Allergy) ThuApr 01 15:34:00 2018 Penicillins (Allergy) ThuApr 01 15:34:00 EST 20 19 Medications Medication Directions Start Date End Date Milk of Magnesia 400 mg/5 mL oral suspension 30 ml SUSPENSION, ORAL (FINAL DOSE FORM) Oral PRN 1 Time Daily constipation ThuApr 14 08:00:00 2018Apr 21 01:00:00 2018 metFORMIN 1,000 mg tablet 1,000mg TABLET Oral 1 Time Daily DM ThuApr 13 07:00:00 2018Apr 21 01:00:00 2018 fluconazole 150 mg tablet 150mg TABLET O ral 1 Time Daily for 1 Day ThuApr 09 07:00:00 2018 16 06:59:00 2018 ondansetron HCl 4 mg tablet 4mg TABLET O ral PRN Every 8 Hours nausea ThuApr 06 01:00:00 2018Apr 21 01:00:00 2018 fluconazole 150 mg tablet 150mg TABLET O ral 1 Time Daily for 1 Day ThuApr 06 13:00:00 2018Apr 07 12:59:00 2018 nystatin 100,000 unit/gram topical cream as directed CREAM (GRAM) Topical 2 Times Daily for 7 Days apply to vaginal area BID x7days Thu 13 08:00:00 2018Apr 14 07:59:00 EST 2019 oxyCODONE 5 mg tablet 1 tab TABLET Oral PRN Every 4 Hours DX: pain ThuApr 05 18:30:00 2018Apr 21 01:00:00 EST 2018 oxyCODONE 5 mg tablet 5 mg 2 tabs TABLET Oral PRN Every 4 Hours dx: pain ThuApr 05 18:00:00 2018Apr 21 01:00:00 EST 2018 Zofran 4 mg tablet 4mg TABLET Oral PRN Every 6 Hours nausea ThuApr 05 01:00:00 EST 2018 Tue Mar 12 01:07:00 EST 2019 Acidophilus capsule 2 caps CAPSULE Oral 2 Times Daily for 14 Days Probiotic Protocol ThuApr 02 07:00:00 2018Apr 16 06:59:00 EST 2019 levothyroxine 112 mcg tablet 112mcg TABL ET Oral 1 Time Daily Hypothyroidism ThuApr 03 07:00:00 2018Apr 21 01:00:00 EST 2019 sucralfate 1 gram tablet 1 tab TABLET Or al 4 Times Daily 1 hour before meals and at bedtime. Take 30 min after protonix. ThuApr 02 07:00:00 2018Apr 21 01:00:00 EST 2019 Cipro 500 mg tablet 500mg TABLET Oral 2 Times Daily for 10 Days UTI ThuApr 02 07:00:00 2018Apr 12 06:59:00 EST 2019 TUBErsol 5 tub. unit/0.1 mL intradermal injection solution 0.1 ml VIAL (ML) Intradermal 1 Time Weekly for 2 Weeks (PPD) 1st injection upon admission. Read between 48 and 72 hours and give 2nd injection 1 week after the 1st if result is negative. If positive result, proceed with chest x-ray to rule out active disease. ThuApr 02 07:00:00 2018Apr 16 06:59:00 EST 2018 TUBErsol 5 tub. unit/0.1 mL intradermal injection solution Read Results VIAL (ML) Other 1 Time Weekly for 2 Weeks Read results between 48-72 hours after 1st and 2nd 1 week apart. If positive do chest x-ray to rule out active disease. ThuApr 02 07:00:00 2018Apr 16 06:59:00 EST 2019 acetaminophen 500 mg tablet 1,000mg TABL ET Oral Every 6 Hours for 30 Days Pain Sophia Feb 07 20:00:00 EST 2019 Wed Feb 27 01:00:00 EST 2019 Eliquis 2.5 mg tablet 2.5mg TABLET Oral 2 Times Daily for 33 Days DVT prophylaxis Fri Feb 08 07:00:00 EST 2019 Fri Feb 15 15:43:00 EST 2019 Ferrex 150 mg iron capsule 1 cap CAPSULE Oral 2 Times Daily Iron Supplement Fri Feb 08 07:00:00 EST 2019 Wed Feb 27 01:00:00 EST 2019 oxyCODONE 5 mg tablet 5 mg 1 tab TABLET Oral PRN Every 4 Hours Pain 7-10 Sophia Feb 07 16:00:00 EST 2019 Mon Feb 11 17:00:00 EST 2019 Bactrim DS 800 mg-160 mg tablet 1 tab TABLET Oral Every 12 Hours for 7 Days UTI Sophia Feb 07 16:00:00 EST 2019 Fri Feb 08 11:03:00 EST 2019 atorvastatin 10 mg tablet 10mg TABLET Or al 1 Time Daily Hyperlipidemia Fri Feb 08 07:00:00 EST 2019 Wed Feb 27 01:00:00 EST 2019 buPROPion HCl 75 mg tablet 75mg TABLET O ral 2 Times Daily Depression Fri Feb 08 07:00:00 EST 2019 Wed Feb 27 01:00:00 EST 2019 Questran 4 gram oral powder 1 packet POW SAROJ (GRAM) Oral PRN Diarrhea Fri Feb 08 07:00:00 EST 2019 Mon Feb 11 14:31:00 EST 2019 famotidine 40 mg tablet 40mg TABLET Oral 1 Time Daily GERD Fri Feb 08 07:00:00 EST 2019 Wed Feb 27 01:00:00 EST 2019 hydroCHLOROthiazide 25 mg tablet 25mg TABLET Oral 1 Time Daily HTN Thu Feb 08 07:00:00 EST 2019 Wed Feb 27 01:00:00 EST 2019 levothyroxine 112 mcg tablet 112mcg TABL ET Oral 1 Time Daily Hypothyroidism Fri Feb 08 07:00:00 EST 2019 Fri Feb 08 11:00:00 EST 2019 losartan 100 mg tablet 100mg TABLET Oral 1 Time Daily HTN Fri Feb 08 07:00:00 EST 2019 Wed Feb 27 01:00:00 EST 2019 metFORMIN 1,000 mg tablet 1,000mg TABLET Oral 2 Times Daily DM Fri Feb 08 07:00:00 EST 2019 Mon Feb 18 14:45:00 EST 2019 potassium chloride ER 20 mEq tablet,extended release(part/cryst) 20mEq TABLET, EXT RELEASE, PARTICLES/CRYSTALS Oral 1 Time Daily Potassium supplement ThuApr 02 07:00:00 2018Apr 21 01:00:00 2018 Lyrica 100 mg capsule 100 mg 100mg CAPSU LE Oral 2 Times Daily Fibromyalgia ThuApr 02 07:00:00 2018Apr 21 01:00:00 2018 promethazine 25 mg tablet 25mg TABLET Or al PRN Every 4 Hours Nausea ThuApr 01 18:00:00 2018Apr 05 16:58:00 2018 sucralfate 1 gram tablet 1 tab TABLET Or al 4 Times Daily 1 hour before meals and at bedtime. Take 30 min after protonix. ThuApr 02 07:00:00 2018Apr 02 11:01:00 2018 traZODone 100 mg tablet 100mg TABLET Ora l 1 Time Daily Insomnia ThuApr 01 16:00:00 2018Apr 05 12:17:00 2018 traZODone 100 mg tablet 100mg TABLET Ora l 1 Time Daily Insomnia ThuApr 05 11:00:00 2018Apr 21 01:00:00 2018 cholestyramine (with sugar) 4 gram powder for susp in a packet 1 pack Oral PRN 1 Time Daily Diarrhea ThuApr 01 09:00:00 2018Apr 21 01:00:00 2018 Eliquis 2.5 mg tablet 2.5mg TABLET Oral 2 Times Daily for 35 Days DVT prophylaxisend date on eliquis is 05/05/2018ThuApr 01 01:00:00 2018Apr 21 01:00:00 2018 Problems Active Concerns * Aftercare following joint replacement surgery* Code: * Start Date: ThuApr 01 00:00:00 2018 * End Date: * Text: * Presence of right artificial hip joint* Code: * Start Date: ThuApr 01 00:00:00 2018 * End Date: * Text: * Unilateral primary osteoarthritis, right hip* Code: * Start Date: ThuApr 01 00:00:00 2018 * End Date: * Text: * Essential (primary) hypertension* Code: * Start Date: ThuApr 01 00:00:00 2018 * End Date: * Text: * Hypothyroidism, unspecified* Code: * Start Date: ThuApr 01 00:00:00 2018 * End Date: * Text: * Iron deficiency anemia, unspecified* Code: * Start Date: ThuApr 01 00:00:00 2018 * End Date: * Text: * Hyperlipidemia, unspecified* Code: * Start Date: ThuApr 01 00:00:00 2018 * End Date: * Text: * Major depressive disorder, single episode, unspecified* Code: * Start Date: ThuApr 01 00:00:00 2018 * End Date: * Text: * Insomnia, unspecified* Code: * Start Date: ThuApr 01 00:00:00 2018 * End Date: * Text: * Type 2 diabetes mellitus with diabetic neuropathy, unspecified* Code: * Start Date: ThuApr 01 00:00:00 2018 * End Date: * Text: * Urinary tract infection, site not specified* Code: * Start Date: ThuApr 01 00:00:00 2018 * End Date: * Text: * Personal history of peptic ulcer disease* Code: * Start Date: ThuApr 01 00:00:00 2018 * End Date: * Text: * Gastro-esophageal reflux disease without esophagitis* Code: * Start Date: ThuApr 01 00:00:00 2018 * End Date: * Text: * Candidiasis of vulva and vagina* Code: * Start Date: ThuApr 01 00:00:00 2018 * End Date: * Text: Reason for Referral Past Medical History Resolved Concerns * Problem Type 2 diabetes mellitus without complications* Code: * Start Date: ThuApr 01 00:00:00 2018 * End Date: ThuApr 01 00:00:00 2018
--- OUTSIDE RECORDS SUMMARY | 2024-06-30 14:18 | XMS_ITS | Clinical Summary ---
Author Organization [facility] Address [address] [place] [address] Care Team Providers Care Graphic Design Specialist Name Role Phone Jamey Barrera MD Primary Care Provider [phone] Allergies Active Allergy Reactions Criticality Noted Date Comments Erythromycin Diarrhea,Hives High 11/27/2015 Penicillins Unknown,Rash Medium 11/27/2015 Medications ALPRAZolam (XANAX) 0.5 MG tabletIndicatio ns:anxiety Take 0.5 mg by mouth 2 (two) times daily as needed. Indications: anxiety FOR ANXIETY 2 Active alendronate (FOSAMAX) 70 MG tabletIndicatio ns:supplement Take 70 mg by mouth once a week. Indications: supplement 3 Active atorvastatin (LIPITOR) 10 MG tabletIndicatio ns:HLD Take 10 mg by mouth daily. Indications: HLD Active benzonatate (TESSALON) 100 MG capsuleIndicati ons:Cough Take 200 mg by mouth 3 (three) times daily as needed for Cough. Indications: Cough 3 Active cyclobenzaprine (FLEXERIL) 10 MG tabletIndicatio ns:muscle pain Take 10 mg by mouth 2 (two) times daily as needed for Muscle Spasms. Indications: muscle pain 2 Active DULoxetine (CYMBALTA) 60 MG capsuleIndicati ons:anxiety Take 60 mg by mouth 2 (two) times daily. Indications: anxiety 3 Active FEROSUL 325 (65 Fe) MG tabletIndicatio ns:supplement Take 325 mg by mouth 3 (three) times daily with meals. Indications: supplement 2 Active folic acid (FOLVITE) 1 MG tabletIndicatio ns:supplement Take 1 mg by mouth daily. Indications: supplement Active furosemide (LASIX) 40 MG tabletIndicatio ns:diuretic Take 60 mg by mouth daily. Indications: diuretic 3 Active HYDROcodone-farnaz taminophen (NORCO) 7.5-325 MG tabletIndicatio ns:Chronic Pain Take 1 tablet by mouth every 6 (six) hours as needed for Pain. Indications: Chronic Pain Active hydroxychloroqu ine (PLAQUENIL) 200 MG tabletIndicatio ns:RA Take 400 mg by mouth daily. Indications: RA 2 Active levothyroxine (SYNTHROID) 100 MCG tabletIndicatio ns:Thyorid Take 100 mcg by mouth daily. Indications: Thyorid Active losartan (COZAAR) 100 MG tabletIndicatio ns:HTN Take 100 mg by mouth daily. Indications: HTN 2 Active omeprazole (PRILOSEC) 40 MG capsuleIndicati ons:GERD Take 40 mg by mouth 2 (two) times daily. Indications: GERD 2 Active nystatin (MYCOSTATIN) powderIndicatio ns:rash Apply 1 Application topically 2 (two) times daily. Indications: rash 2 Active pioglitazone (ACTOS) 30 MG tabletIndicatio ns:diabetes Take 30 mg by mouth daily. Indications: diabetes 3 Active potassium chloride CR (K-TAB) 10 MEQ Tab CR tabletIndicatio ns:supplement Take 10 mEq by mouth daily. Indications: supplement Active pregabalin (LYRICA) 100 MG capsuleIndicati ons:diabetes Take 100 mg by mouth 2 (two) times a day. Indications: diabetes Active metFORMIN (GLUCOPHAGE) 1000 MG tabletIndicatio ns:diabetes Take 1,000 mg by mouth 2 (two) times daily with meals. Indications: diabetes 2 Active traZODone (DESYREL) 100 MG tabletIndicatio ns:sleep Take 100 mg by mouth nightly as needed. Indications: sleep FOR SLEEP 2 Active Multiple Vitamins-Minera ls (MULTIVITAMIN WOMEN 50+ OR)Indications: supplement Take 1 tablet by mouth daily. Indications: supplement Active metoprolol succinate ER (TOPROL-XL) 25 MG 24 hr tabletIndicatio ns:HTN Take 25 mg by mouth daily. Indications: HTN Active albuterol sulfate HFA 108 (90 Base) MCG/ACT inhalerIndicati ons:SOB Inhale 2 puffs into the lungs every 6 (six) hours as needed for Shortness of breath. 1 g 3 Active calcium carbonate (TUMS) 500 MG chewable tablet [The details of the medication are not available because there are pending changes by a home health clinician.] 90 tablet 3 Active Additional Information Patient not taking.Reported on 03/24/2022 phenol (CHLORASEPTIC) 1.4 % LiquidIndicatio ns:cough Use as directed 1 spray in the mouth or throat every 2 (two) hours as needed. 1 mL 3 Active ipratropium-alb uterol (DUONEB) 0.5-2.5 (3) MG/3ML SolutionIndicat ions:SOB Take 3 mLs by nebulization 4 (four) times daily. 360 mL 3 Active OXYGENIndicatio ns:SOB 1 L/min by Nasal route as needed (SOB). Indications: SOB 3 Active ondansetron (ZOFRAN) 4 MG tabletIndicatio ns:nausea Take 4 mg by mouth every 6 (six) hours as needed for Nausea. Indications: nausea 3 Active acetaminophen (TYLENOL) 500 MG tabletIndicatio ns:pain Take 1,000 mg by mouth every 4 (four) hours as needed for Pain. Indications: pain 3 Active calcium, elemental, 600 MG tabletIndicatio ns:supplemet Take 600 mg by mouth daily. Indications: supplemet 3 Active Cyanocobalamin (VITAMIN B 12 OR)Indications: supplement Apply 1,000 mcg to eye daily. Indications: supplement 3 Active fish oil (OMEGA-3 FATTY ACID) 1000 MG Cap capsuleIndicati ons:supplement Take 500 mg by mouth daily. Indications: supplement 3 Active fish oil (OMEGA-3 FATTY ACID) 1000 MG Cap capsuleIndicati ons:supplement Take 1,000 mg by mouth daily. Indications: supplement 3 Active vitamin C (ASCORBIC ACID) 500 MG tabletIndicatio ns:supplment Take 1,000 mg by mouth daily. Indications: supplment 3 Active vitamin D3, cholecalciferol , 1000 UNIT Tab tabletIndicatio ns:supplement Take 1,000 Units by mouth daily. Indications: supplement 3 Active Upadacitinib ER (RINVOQ) 15 MG TABLET SR 24 HRIndications:R A Take 1 tablet by mouth daily. Indications: RA 3 Active polyethylene glycol (MIRALAX) 17 GM/SCOOP powderIndicatio ns:stool softener Take 17 g by mouth daily. Indications: stool softener 3 Active Active Problems Problem Noted Date Diagnosed Date RSV (acute bronchiolitis due to respiratory syncytial virus) 03/10/2022 Resolved Problems Problem Noted Date Diagnosed Date Resolved Date CAP (community acquired pneumonia) 03/09/2022 03/10/2022 Encounters Date Type Department Care Team Description 04/07/2024 12:06 PM BLURB WRITER - 04/07/2024 2:15 PM [facility] Emergency [facility] [place] [address] Guerita Lopez PA Flu Like Symptoms Discharge Disposition: Home or Self Care (Routine Discharge) 04/07/2024 Travel from Last 3 Months Family History Medical History Relation Comments No Known Problems Father No Known Problems Mother Relation Status Comments Father Mother Social History Tobacco Use Types Packs/Day Years Used Date Smoking Tobacco: Never Smokeless Tobacco: Never Tobacco Cessation:Counseling Given: Not Answered Alcohol Use Standard Drinks/Week Comments Not Currently 0 (1 standard drink = 0.6 oz pur e alcohol) OASIS D0700: Social Isolation Answer Da te Recorded Frequency of experiencing loneliness or isolatio n Never 04/24/2022 OASIS A1250: Transportation Answer Date Recorded Lack of Transportation (Medical) No 04/24/2022 Lack of Transportation (Non-Medical) No 04/24/2022 Patient Unable or Declines to Respond No 04/24/2022 OASIS B1300: Health Literacy Answer Dioni e Recorded Frequency of needing help to read materials from doctor or pharmacy Never 04/24/2022 Humiliation, Afraid, Rape, and Kick questionnair e Answer Date Recorded Within the last year, have y ou been afraid of your partner or ex-partner? Patient declined 03/10/2022 Within the last year, have y ou been humiliated or emotionally abused in other ways by your partner or ex-partner? Patient declined 03/10/2022 Within the last year, have y ou been kicked, hit, slapped, or otherwise physically hurt by your partner or ex-partner? Patient declined 03/10/2022 Within the last year, have y ou been raped or forced to have any kind of sexual activity by your partner or ex-partner? Patient declined 03/10/2022 Overall Financial Resource Strain (CARDIA) Answe r Date Recorded How hard is it for you to pa y for the very basics like food, housing, medical care, and heating? Not very hard 03/10/2022 Hunger Vital Sign Answer Date Recorded Within the past 12 months, y ou worried that your food would run out before you got the money to buy more. Never true 03/10/19 23 Within the past 12 months, t he food you bought just didn't last and you didn't have money to get more. Never true 03/10/2022 PRAPARE - Transportation Answer Date Re corded In the past 12 months, has l ack of transportation kept you from medical appointments or from getting medications? No 02/23 In the past 12 months, has l ack of transportation kept you from meetings, work, or from getting things needed for daily living? No 03/10/2022 Housing Stability Vital Sign Answer Dioni e Recorded In the last 12 months, was t here a time when you were not able to pay the mortgage or rent on time? No 03/10/2022 In the last 12 months, how many places have you lived? 1 03/10/2022 In the last 12 months, was t here a time when you did not have a steady place to sleep or slept in a residential (including now)? No 03/10/2022 Comments No Sex and Gender Information Value Date Recorded Sex Assigned at Female 04/07/2024 11:55 AM BLURB WRITER Legal Sex Female 12:19 PM BLURB WRITER Gender Identity Not on file Sexual Orientation Not on file Last Filed Vital Signs Vital Sign Reading Time Taken Comments Blood Pressure 113/59 04/07/2024 11:45 AM BLURB WRITER Pulse 71 04/07/2024 11:45 AM BLURB WRITER Temperature 37 C (98.6 F) 04/07/2024 11:45 AM BLURB WRITER Respiratory Rate 19 04/07/2024 11:45 AM BLURB WRITER Oxygen Saturation 98% 04/07/2024 11:45 AM BLURB WRITER Inhaled Oxygen Concentration - - Weight 97.5 kg (215 lb) 04/07/2024 11:45 AM BLURB WRITER Height 160 cm (5' 3 ) 04/07/2024 11:45 AM BLURB WRITER Body Mass Index 38.09 04/07/2024 11:45 AM BLURB WRITER Plan of Treatment Health Maintenance Due Date Last Done Comments Hepatitis C 1963 DTaP, Tdap and Td Vaccines (1 - Tdap) 1965 Dexa Scan (General) 2011 Pneumococcal Vaccine: 50+ Years (2 of 2 - PPSV23) 12/26/2016 12/27/2015 RSV Immunization or 60+ Years (1 - 1-dose 75+ series) 2021 COVID-19 Vaccine ( season) 2023 01/02/2022, 09/10/2021, 12/27/2020, Additional history exists Zoster Vaccines Completed 02/28/2020, 11/23, 06/26/2013 Meningococcal B Vaccine Aged Out No l onger eligible based on patient's age to complete this topic Meningococcal Vaccine Aged Out No luis felipe brad eligible based on patient's age to complete this topic RSV Immunizations Under 20 Months Aged Out No longer eligible based on patient's age to complete this topic Goals Goal Patient Goal Type Associated Problems Recent Progress Patient-Stated? Author Patient will return to prior living situation and remain independent in ADLs upon discharge from hospital Lifestyle No Cece Norman RN Procedures Procedure Name Priority Date/Time Associated Diagnosis Comments BASIC METABOLIC PANEL STAT 04/07/2024 12:40 PM BLURB WRITER CBC W/DIFF AUTOMATED STAT 04/07/2024 12:40 PM BLURB WRITER XR CHEST PA+LAT STAT 04/07/2024 12:20 PM BLURB WRITER from Last 3 Months Results * (ABNORMAL) BASIC METABOLIC PANEL (04/07/2024 12:40 PM BLURB WRITER) GLUCOSE 82 70 - 99 MG/DL 04/07/2024 1:27 PM [facility] BUN 17 7 - 18 MG/DL 04/07/2024 1:27 PM [facility] CREATININE S/P/B 1.15(H) 0.55 - 1.02 MG/DL 04/07/2024 1:27 PM [facility] SODIUM S/P/B 135(L) 136 - 145 MMOL/L 04/07/2024 1:27 PM [facility] POTASSIUM S/P/B 3.8 3.5 - 5.1 MMOL/L 04/07/2024 1:27 PM [facility] CHLORIDE S/P/B 100 97 - 115 MMOL/L 04/07/2024 1:27 PM [facility] CO2 34.2(H) 21 - 32 MMOL/L 04/07/2024 1:27 PM [facility] CALCIUM S/P/B 9.0 8.5 - 10.1 MG/DL 04/07/2024 1:27 PM [facility] ANION GAP 0.8(L) 2 - 10 MMOL/L 04/07/2024 1:27 PM [facility] BUN CREATININE RATIO 14.8 6 - 26 04/07/2024 1:27 PM [facility] GFR ESTIMATE 49(L) >90 ML/MIN/1.7 3 M2 04/07/2024 1:27 PM [facility] Comment: NOTE: eGFR is not calculated for patients <18 years of age or gender unknown. This is an estimated GFR calculation using the new CKD EPI creatinine equation without race and so does not require a correction factor for race. This estimated GFR should not be used for calculating drug doses. 04/07/2024 12:4 0 PM BLUR[facility]ITER [facility] Final Resul t [facility] [address] [place] [address], * (ABNORMAL) CBC W/DIFF AUTOMATED (04/07/2024 12:40 PM BLURB WRITER) WBC 5.93 4.5 - 11.0 x10'3/uL 04/07/2024 12:56 PM [facility]UR[facility] WRITER [facility] RBC 4.35 4.20 - 5.40 x10'6/uL 04/07/2024 12:56 PM BLURB WRITER [facility] HGB 12.1 12.0 - 16.0 G/DL 04/07/2024 12:56 PM BLURB WRITER [facility] HCT 37.6(L) 38.0 - 48.0 % 04/07/2024 12:56 PM BLURB WRITER [facility] MCV 86.4 81.0 - 99.0 FL 04/07/2024 12:56 PM BLURB WRITER [facility] MCH 27.8 27.0 - 31.0 PG 04/07/2024 12:56 PM BLURB WRITER [facility] MCHC 32.2 32.0 - 36.0 G/DL 04/07/2024 12:56 PM BLURB WRITER [facility] RDW 17.2(H) 11.5 - 14.5 % 04/07/2024 12:56 PM [facility] PLT 162 130 - 400 x10'3/uL 04/07/2024 12:56 PM [facility] MPV 9.0(L) 9.3 - 12.2 FL 04/07/2024 12:56 PM BLURB WRITER [facility] DIFFERENTIAL TYPE MANUAL DIFFERENTIAL 04/07/2024 1:28 PM [facility] SEG NEUTROPHILS 87 % 1:28 PM BLUR[facility] WRITER [facility] LYMPHOCYTES 3 % 04/07/2024 1:28 PM [facility] MONOCYTES 6 % 04/07/2024 1:28 PM BLUR[facility] WRITER [facility] EOSINOPHILS 1 % 04/07/2024 1:28 PM BLUR[facility] WRITER [facility] BANDS 3 % 04/07/2024 1:28 PM [facility] ABS. NEUTROPHILS 5.34 1.80 - 7.70 x10'3/uL 04/07/2024 1:28 PM [facility] ABS. LYMPHOCYTES 0.18(L) 1.00 - 4.80 x10'3/uL 04/07/2024 1:28 PM BLURB WRITER [facility] ABS. MONOCYTES 0.36 0.24 - 0.86 x10'3/uL 04/07/2024 1:28 PM [facility] ABS. EOSINOPHILS 0.06 0.04 - 0.36 x10'3/uL 04/07/2024 1:28 PM [facility] RBC MORPHOLOGY RBC MORPHOLOGY APPEARS NORMAL. SLIDE REVIEWED. 04/07/2024 1:28 PM [facility] PLT EST. ADEQUATE 04/07/2024 1:28 PM [facility] 04/07/2024 12:4 0 PM BLURB WRITER us [facility] Final Resul t [facility] [address] [place] [address], * XR CHEST PA+LAT (04/07/2024 12:20 PM BLURB WRITER) Anatomical Region Laterality Modality Chest Radiographic Tatiana ging 04/07/2024 12:2 8 PM BLURB WRITER Impressions 04/07/2024 12:33 PM BLURB WRITER IMPRESSION: 1. Mild central peribronchial thickening. No apparent focal pulmonary infiltrate or consolidation. 2. Mild pulmonary vascular congestion. Ordered By: GUERITA LOPEZ Interpreted By: Rufino Mccurdy, 04/07/2024 12:28 PM Narrative 04/07/2024 12:33 PM BLURB WRITER [address] [address] IMAGING STUDIES: XR CHEST PA+LAT DATE: 04/07/2024 12:07 PM HISTORY: cough +Flu 78-year-old female. Reportedly tested positive for influenza A at home. Body aches, congestion, coughing, and shortness of breath with symptoms starting about 3 days ago. COMPARISON: Chest 2 view 03/15/2022. DISCUSSION: Upright PA and lateral views. Heart size within normal limits. Mild pulmonary vascular congestion having similar appearance to prior exam. Aortic tortuosity having similar appearance to prior exam. Mild central peribronchial thickening which could be due to viral illness or reactive airways. No acute focal pulmonary infiltrate, pulmonary consolidation, pleural effusion, or pneumothorax. Spinal curvature and degenerative changes. Spinal stimulator lead extending to the midthoracic region is new since 03/15/2022. Bilateral shoulder degenerative changes. Procedure Note Rufino Mccurdy MD - 04/07/[address] [address] IMAGING STUDIES: XR CHEST PA+LATDATE: 04/07/2024 12:07 PM HISTORY: cough +Flu 78-year-old female. Reportedly tested positivefor influenza A at home. Body aches, congestion, coughing, and shortnessof breath with symptoms starting about 3 days ago. COMPARISON: Chest 2 view 03/15/2022. DISCUSSION: Upright PA and lateral views. Heart size within normal limits. Mild pulmonary vascular congestion havingsimilar appearance to prior exam. Aortic tortuosity having similarappearance to prior exam. Mild central peribronchial thickening which could be due to viral illnessor reactive airways. No acute focal pulmonary infiltrate, pulmonaryconsolidation, pleural effusion, or pneumothorax. Spinal curvature and degenerative changes. Spinal stimulator leadextending to the midthoracic region is new since 03/15/2022. Bilateralshoulder degenerative changes. IMPRESSION: 1. Mild central peribronchial thickening. No apparent focal pulmonaryinfiltrate or consolidation. 2. Mild pulmonary vascular congestion. Ordered By: GUERITA LOPEZ Interpreted By: Rufino Mccurdy, 04/07/2024 12:28 PM [facility] Final Resul t from Last 3 Months Insurance AET[employer] AET[employer] Advance Directives * Full Code (Latest Code Status on File) Date Activated Date Inactivated Comments 03/24/2022 6:46 PM 04/07/2024 11:42 AM * Full Code Date Activated Date Inactivated Comments 03/09/2022 7:36 PM 03/17/2022 7:45 PM Care Teams Graphic Design Specialist Relationship Specialty Start Date End Date Jamey Barrera MD PCP - General INTERNAL MEDICINE 03/12/22
--- OUTSIDE RECORDS SUMMARY | 2024-06-30 14:18 | XMS_ITS | Encounter Summary ---
Author Organization [facility] [employer] [facility] Address [address] [place] [address] Care Team Providers Care Bushel Girl Name Role Phone Sid Wright DO Primary Care Provider [phone] Reason for Visit * Reason Comments Med Refill Encounter Details Date Type Department Care Team (Late st Contact Info) Description 06/27/2024 Refill [facility] Oncology and Hematology - [place] [address] [facility] [address] [place] [address] Jackson Mariscal MD [address] [facility] [address] [place] [address] Chronic anemia Social History Tobacco Use Types Packs/Day Years Used Date Smoking Tobacco: Never Smokeless Tobacco: Never Alcohol Use Standard Drinks/Week Comments Never 0 (1 standard drink = 0.6 oz pur e alcohol) Comments No Sex and Gender Information Value Date Recorded Sex Assigned at Not on file Legal Sex Female 10:36 AM CDT Gender Identity Not on file Sexual Orientation Not on file documented as of this encounter Plan of Treatment Not on file documented as of this encounter Visit Diagnoses Diagnosis Chronic anemia Anemia, unspecified documented in this encounter Care Teams Bushel Girl Relationship Specialty Start Date End Date Sid Wright DO [address] [place] [address] PCP - General Internal Medicine 12/14/23 documented as of this encounter
--- OUTSIDE RECORDS SUMMARY | 2024-06-30 14:18 | XMS_ITS | CONTINUITY OF CARE DOCUMENT ---
Author Name sherine basurto Address Unknown Organization [facility] Address [address] [place] [address] [address] [place] [address] Phone [phone] Care Team Providers Care Excellence Consultant Name Role Phone Alessio WRIGHT, Ruthy Unavailable INSURANCE PROVIDERS Payer name Policy type / Coverage type Danielle red constitution party ID [facility] [id number]
--- OUTSIDE RECORDS SUMMARY | 2024-06-30 14:18 | XMS_ITS ---
Author Name Auto Generated, Auto Generated Organization [facility] Address [address] [place] [address] Phone [phone] Care Team Providers Care Yard Specialist Name Role Phone Jai Galeano Unavailable Mel Doty Unavailable [phone] Bianka Cobos Unavailable [phone] Unavailable [phone] Functional Status No Results Mental Status No [...]
--- OUTSIDE RECORDS SUMMARY | 2024-06-30 14:18 | XMS_ITS | Clinical Summary ---
Author Organization [facility] Address [address] [place] [address] Phone Care Team Providers Care Administrative Project Coordinator Name Role Phone Sid Wright DO Primary Care Provider [phone] Allergies Active Allergy Reactions Criticality Noted Date Comments Erythromycin Diarrhea Low 11/27/2015 Penicillins Rash Medium 11/27/2015 Medications aspirin EC 81 MG EC tablet Take 81 mg by mouth 6 Active atorvastatin (LIPITOR) 10 MG tablet Take 10 mg by mouth 1 (one) time each day 0 Active Farxiga 10 MG tablet Take 1 tablet by mouth 1 (one) time each day 0 Active DULoxetine (CYMBALTA) [address] capsule Take 60 mg by mouth 2 (two) times a day 0 Active FeroSul 325 (65 Fe) MG tablet Take 1 tablet by mouth 3 (three) times a day with meals 0 Active folic acid (FOLVITE) 1 MG tablet Take 1,000 mcg by mouth 1 (one) time each day 0 Active furosemide (LASIX) 40 MG tablet Take 40 mg by mouth 1 (one) time each day 0 Active HYDROcodone-farnaz taminophen (NORCO) 5-325 MG per tablet Take 1 tablet by mouth 3 (three) times a day if needed for pain 0 Active Lancets (OneTouch Delica Plus [id number]) misc USE 1 TO CHECK GLUCOSE THREE TIMES DAILY 0 Active leflunomide (ARAVA) 20 MG tablet Take 20 mg by mouth 1 (one) time each day 0 Active Euthyrox 100 MCG tablet Take 100 mcg by mouth 1 (one) time each day 0 Active losartan (COZAAR) 100 MG tablet Take 100 mg by mouth 1 (one) time each day 0 Active omeprazole (PriLOSEC) [address] capsule Take 40 mg by mouth 1 (one) time each day 0 Active ondansetron (ZOFRAN) 4 MG tablet ondansetron HCl 4 mg tablet Active potassium chloride (KLOR-CON M20) 20 MEQ CR tablet Take 20 mEq by mouth 7 Active pregabalin (LYRICA) 100 MG capsule Take 100 mg by mouth 2 (two) times a day 0 Active Upadacitinib ER 15 MG tablet sustained-relea se 24 hour Take 15 mg by mouth daily Active ALPRAZolam (XANAX) 0.5 MG tablet Take 0.5 mg by mouth 2 (two) times a day if needed for anxiety 0 Active Blood Glucose Monitoring Suppl ([employer] Verio Flex System) w/Device kit USE TO CHECK GLUCOSE TWICE DAILY 1 Active UmengTouch Verio test strip USE STRIP TO CHECK GLUCOSE TWICE DAILY 0 Active traZODone (DESYREL) 100 MG tablet TAKE 2 TABLETS BY MOUTH AT BEDTIME FOR SLEEP 0 Active alendronate (FOSAMAX) 70 MG tablet Take 70 mg by mouth 1 (one) time per week 1 Active ascorbic acid (VITAMIN C) 500 MG tablet Take 1,000 mg by mouth daily Active Cholecalciferol 50 MCG (2000 UT) capsule Take by mouth. Act van cyanocobalamin 500 MCG tablet Take 500 mcg by mouth daily Active cyclobenzaprine (FLEXERIL) 10 MG tablet TAKE 1 TABLET BY MOUTH AT BEDTIME NEEDED FOR MUSCLE SPASM 1 Active latanoprost (XALATAN) 0.005 % ophthalmic solution INSTILL 1 DROP INTO EACH EYE AT BEDTIME 1 Active metoprolol succinate XL (TOPROL-XL) 25 MG 24 hr tablet Take 25 mg by mouth 1 (one) time each day 1 Active potassium chloride (KLOR-CON) 10 MEQ CR tablet Take 10 mEq by mouth 1 (one) time each day 1 Active predniSONE (DELTASONE) 10 MG tablet TAKE 1 TABLET BY MOUTH ONCE DAILY FIRST THING IN THE MORNING SEPARATE FROM YOUR RINVOQ AND LEFLUNOMIDE 1 Active hydroxychloroqu ine (PLAQUENIL) 200 MG tablet Take 400 mg by mouth 1 (one) time each day 2 Active metFORMIN (GLUCOPHAGE) 1000 MG tablet Take 1,000 mg by mouth 2 (two) times a day with meals 2 Active methotrexate 2.5 MG tablet TAKE 3 TABLETS BY MOUTH ONCE A WEEK 2 Active Nystop 281829 UNIT/GM powder Apply topically 2 (two) times a day 2 Active pioglitazone (ACTOS) 30 MG tablet Take 30 mg by mouth 1 (one) time each day 2 Active ketorolac (ACULAR) 0.5 % ophthalmic solution INSTILL 1 DROP INTO EACH EYE 4 TIMES DAILY BEFORE MEAL(S) AND NIGHTLY 2 Active Active Problems Problem Noted Date Diagnosed Date Open-angle glaucoma of right eye 01/01/2021 Adhesive capsulitis of shoulder 02/07/2020 Cervical spondylosis without myelopathy 02/07/20 20 Disorder of shoulder 02/07/2020 Implantation of joint prosthesis 02/07/2020 Localized, primary osteoarth ritis of the pelvic region and thigh 02/07/2020 Shoulder joint pain 02/07/2020 Tear film insufficiency 08/23/2019 Type 2 diabetes mellitus without complication Normocytic anemia 01/13/2019 Primary open angle glaucoma 12/10/2017 Open-angle glaucoma of left eye 12/10/2017 Overview (12/04/2021): Baseline exam on the glaucoma service is most consistent with moderate glaucoma damage on the left versus mild on the right with significantly thinner nerve fiber layer and ganglion cell layer on the left compared to the right and suggestion of possible early inferior arcuate defects especially visible on the 2020 visual field. Baseline gonioscopy undilated shows wide open angle to the scleral spur 360 degrees both eyes with 1+ trabecular meshwork pigmentation. Central corneal thickness 500 m or below could cause progression at physiologic pressures and therefore we have a new goal of intraocular pressure low normal/below 15 given possible slow decline in OCT parameters over the past several years of observation since diagnosis in 2016 when untreated intraocular pressure measured approximately 22 on the right and 24 on the left. Abimael Lomax MD 01/01/2021 4:19 PM Age-related nuclear cataract of right eye 2016 Immunizations Immunization Administration Dates Next Due Fluzone High-Dose 12/06/2019 Influenza, Quadrivalent 12/06/2019,12/06/2019,,11/29/2018 Influenza, Unspecified 11/12/2020,12/06/2019 Sars-cov-2, Unspecified 05/22/2020 Zoster Recombinant 02/28/2020,12/06/2019 Family History Medical History Relation Comments Diabetes mellitus Father Hypertension Father Hypertension Mother Relation Status Comments Father Mother Social History Tobacco Use Types Packs/Day Years Used Date Smoking Tobacco: Never Smokeless Tobacco: Never Alcohol Use Standard Drinks/Week Comments Never 0 (1 standard drink = 0.6 oz pur e alcohol) AUDIT-C Answer Date Recorded Q1: How often do you have a drink containing alc ohol? Never 01/30/2020 Q2: How many drinks containi ng alcohol do you have on a typical day when you are drinking? Not asked 01/30/2020 Q3: How often do you have six or more drinks on one occasion? Never 01/30/2020 Comments Unknown Sex and Gender Information Value Date Recorded Sex Assigned at Not on file Legal Sex Female 11:56 AM MDT Gender Identity Not on file Sexual Orientation Not on file Last Filed Vital Signs Vital Sign Reading Time Taken Comments Blood Pressure 136/72 12/04/2021 3:33 PM CDT Pulse - - Temperature 36.8 C (98.3 F) 12/04/2021 3:33 PM CDT Respiratory Rate 18 12/04/2021 3:33 PM CDT Oxygen Saturation - - Inhaled Oxygen Concentration - - Weight 106 kg (234 lb) 12/04/2021 3:33 PM CDT Height 160 cm (5' 3 ) 12/04/2021 3:33 PM CDT Body Mass Index 41.45 12/04/2021 3:33 PM CDT Plan of Treatment Health Maintenance Due Date Last Done Comments Diabetic Foot Exam 1955 Pneumococcal PPSV23/PCV13 65 + Years / High and Highest Risk (1 of 5 - PCV) 1965 Ophthalmology Exam 07/03/2021 07/03/2020, 1 03/04/2019, 08/23/2019, Additional history exists Influenza Vaccine (Season Ended) 2024 11/13/19 21, 12/06/2019 Insurance [employer] MEDICARE ADVANTAGE Care Teams Administrative Project Coordinator Relationship Specialty Start Date End Date Sid Wright DO [address] [place] [address] PCP - General Internal Medicine 12/15/19
--- OUTSIDE RECORDS SUMMARY | 2024-06-30 14:19 | XMS_ITS | Clinical Summary ---
Author Organization [facility] Lex Machina Address [address] [place] [address] Care Team Providers Care Protective Services Social Worker Name Role Phone Nura Acosta MD Primary Care Provider [phone] Source Comments [facility],non-owned Affiliates and Associated Physician Practices is amultiple site organization consisting of ambulatory clinics and hospital sitesin [place], [place], [place] and [place]. This disclosure is being madepursuant to the Care Everywhere program and may not contain all information available regarding this patient. Last updated 17.[facility] Allergies Active Allergy Reactions Criticality Noted Date Comments Erythromycin Diarrhea,Urticaria High 11/27/2015 Penicillins Rash Medium 11/27/2015 Medications * Be aware that medications may not be up to date on this document. Alwaysverify current medications with the patient. DULoxetine (CYMBALTA) 60 MG capsule Take 1 (one) capsule by mouth 7 Active losartan (COZAAR) 100 MG tablet Take 1 (one) tablet by mouth 6 Active aspirin EC (ECOTRIN) 81 MG tablet Take 1 (one) tablet by mouth 6 Active traZODone (DESYREL) 100 MG tablet 1 (one) tablet 6 Active pregabalin (LYRICA) 100 MG capsule Take 1 (one) capsule by mouth 2 times daily Active ALPRAZolam (XANAX) 0.5 MG tablet TK 1 T PO TID PRN 9 Active folic acid (FOLVITE) 1 MG tablet Take 1 (one) tablet by mouth once daily 0 Active NeuStringTOUCH VERIO test strip USE 1 STRIP TO CHECK GLUCOSE THREE TIMES DAILY 0 Active potassium chloride ER (KLOR-CON) 10 MEQ tablet Take 1 (one) tablet by mouth once daily 0 Active upadacitinib ER (RINVOQ) 15 MG tablet Take 1 (one) tablet by mouth once daily Active dapagliflozin propanediol (FARXIGA) 5 MG tablet Take 1 (one) tablet by mouth every morning Active Lancets (ONETOUCH DELICA PLUS 33G EXTRA FINE LANCET) USE 1 TO CHECK GLUCOSE THREE TIMES DAILY 0 Active ascorbic acid (VITAMIN C) 500 MG tablet Take 2 (two) tablets by mouth once daily Active calcium carbonate (OS-QUYNH 500) 1250 (500 Ca) MG tablet Take 1 (one) tablet by mouth once daily Active vitamin B-12 (CYANOCOBALAMIN ) 500 MCG tablet Take 1 (one) tablet by mouth once daily Active cyclobenzaprine (FLEXERIL) 10 MG tablet TAKE 1 TABLET BY MOUTH AT BEDTIME NEEDED FOR MUSCLE SPASM 1 Active metoprolol succinate XL 24hr (TOPROL XL) 25 MG tablet Take 1 (one) tablet by mouth once daily 1 Active ferrous sulfate 325 (65 FE) MG tablet TAKE 1 TABLET BY MOUTH THREE TIMES DAILY WITH MEALS 1 Active cetirizine (ZYRTEC) 10 MG tablet Take 1 (one) tablet by mouth once daily as needed for Allergies Active pioglitazone (ACTOS) 30 MG tablet 1 Active EUTHYROX 100 MCG tablet Take 1 (one) tablet by mouth once daily 2 Active hydroxychloroqu ine (Plaquenil) 200 MG tablet Take 2 (two) tablets by mouth once daily 2 Active nirmatrelvir-ri tonavir (Paxlovid) TAKE 1 TABLET OF NIRMATRELVIR AND ONE 100MG RITONAVIR TWICE DAILY FOR 5 DAYS 2 Active tiZANidine (Zanaflex) 4 MG tablet Take 1 (one) tablet by mouth every 6 hours as needed 2 Active traMADol (Ultram) 50 MG tablet Take 1 (one) tablet by mouth every 8 hours as needed 2 Active acetaminophen (Tylenol) 500 MG tablet Take 2 (two) tablets by mouth every 4 hours as needed 3 Active albuterol HFA (Proventil; Ventolin; Proair) 108 (90 Base) MCG/ACT inhaler Inhale 2 (two) puffs by mouth every 6 hours as needed 3 Active predniSONE (Deltasone) 20 MG tablet Take 1 (one) tablet by mouth once daily 3 Active Polyethylene Glycol 3350 Take 17 g by mouth once daily 3 Active phenol (Chloraseptic) 1.4 % liquid 1 spray by Mouth/Throat route every 2 hours as needed 3 Active ondansetron (Zofran) 4 MG tablet Take 1 (one) tablet by mouth every 6 hours as needed 3 Active omeprazole (PriLOSEC) 40 MG capsule 3 Active nystatin (Mycostatin) 580915 UNIT/GM powder APPLY POWDER TOPICALLY THREE TIMES DAILY 3 Active naloxone HCl (Narcan) 4 MG/0.1ML nasal spray ADMINISTER A SINGLE SPRAY IN ONE NOSTRIL UPON SIGNS OF OPIOID OVERDOSE. CALL 911. REPEAT AFTER 3 MINUTES IF NO RESPONSE. 3 Active metFORMIN (Glucophage) 1000 MG tablet Take 1 (one) tablet by mouth 2 times daily with morning and evening meal 3 Active leflunomide (Arava) 10 MG tablet Take 1 (one) tablet by mouth once daily 3 Active albuterol-iprat ropium (Duo-Neb) 0.5-2.5 (3) MG/3ML nebulizer solution Inhale 3 mL by mouth 4 times daily 3 Active HYDROcodone-farnaz taminophen ([place]) 7.5-325 MG tablet Take 1 (one) tablet by mouth every 8 hours as needed For pain. 3 Active furosemide (Lasix) 40 MG tablet Take 1 (one) tablet by mouth once daily 3 Active fluticasone propionate (Flonase) 50 MCG/ACT nasal spray USE 2 SPRAY(S) IN EACH NOSTRIL ONCE DAILY 3 Active doxycycline hyclate (Vibramycin) 100 MG capsule Take 1 (one) capsule by mouth 2 times daily 3 Active Cholecalciferol 25 MCG (1000 UT) Take 1 (one) tablet by mouth once daily 3 Active calcium 600 MG tablet Take 1 (one) tablet by mouth once daily 3 Active azithromycin (Zithromax) 250 MG tablet TAKE 2 TABLETS BY MOUTH ON DAY 1, AND THEN TAKE 1 TABLET BY MOUTH ONCE A DAY ON DAY 2 THROUGH DAY 5 3 Active atorvastatin (Lipitor) 10 MG tablet Take 1 (one) tablet by mouth once daily 3 Active alendronate (Fosamax) 70 MG tablet TAKE 1 TABLET BY MOUTH ONCE A WEEK ON Sundays 3 Active Active Problems Problem Noted Date Diagnosed Date Primary open angle glaucoma (POAG) of right eye, mild stage 01/01/2021 Adhesive capsulitis of shoulder 02/07/2020 Aftercare following joint replacement surgery Cervical spondylosis without myelopathy 02/07/20 20 Disorder of shoulder 02/07/2020 Primary localized osteoarthritis of pelvic regio n and thigh 02/07/2020 Shoulder joint pain 02/07/2020 Dry eye syndrome of both eyes 08/23/2019 Controlled type 2 diabetes m ellitus without complication, without long-term current use of insulin 08/23/2019 Primary open angle glaucoma (POAG) of left eye, moderate stage 12/10/2017 Overview (01/01/2021): Baseline exam on the glaucoma service is [...] 2016 Immunizations Immunization Administration Dates Next Due FLU, HISTORIC VACCINE 12/06/2019 INFLUENZA VACCINE 11/12/2020 INFLUENZA VACCINE, HIGH-DOSE , QUADR. (FLUZONE HIGH-DOSE QUADRIVALENT; 65Y+), 0.7 ML (HD-IIV4) 12/06/2019,11/29/2018 MARY ANNE VACCINE QUAD LAIV4 PF NASAL 12/06/2019,2018 Zoster Hzv Vacc Recombinant Inj Im 02/28/2020, Family History Medical History Relation Name Comments Glaucoma Father Glaucoma Sister Relation Name Status Comments Father Sister Social History Tobacco Use Types Packs/Day Years Used Date Smoking Tobacco: Never Smokeless Tobacco: Never Tobacco Cessation:Counseling Given: Not Answered Alcohol Use Standard Drinks/Week Comments No 0 (1 standard drink = 0.6 oz pur e alcohol) Comments Unknown Sex and Gender Information Value Date Recorded Sex Assigned at Not on file Legal Sex Female 5:21 PM LICENSED CERTIFIED ORTHOTIST Gender Identity Not on file Sexual Orientation Not on file Last Filed Vital Signs Vital Sign Reading Time Taken Comments Blood Pressure 118/60 03/14/2021 10:58 AM LICENSED CERTIFIED ORTHOTIST Pulse 74 03/14/2021 10:58 AM LICENSED CERTIFIED ORTHOTIST Temperature 36.4 C (97.6 F) 03/14/2021 10:58 AM LICENSED CERTIFIED ORTHOTIST Respiratory Rate 15 11/19/2016 11:30 AM CDT Oxygen Saturation 98% 03/14/2021 10:58 AM LICENSED CERTIFIED ORTHOTIST Inhaled Oxygen Concentration - - Weight 97.1 kg (214 lb) 04/17/2021 3:20 PM LICENSED CERTIFIED ORTHOTIST Height 160 cm (5' 3 ) 04/17/2021 3:20 PM LICENSED CERTIFIED ORTHOTIST Body Mass Index 37.91 04/17/2021 3:20 PM LICENSED CERTIFIED ORTHOTIST Plan of Treatment Health Maintenance Due Date Last Done Comments BONE DENSITY TESTING 1945 HEPATITIS C SCREENING 04/05/1964 DTAP/TDAP/TD VACCINES (1 - Tdap) 1965 PNEUMOCOCCAL VACCINE 50+ (1 of 2 - PCV) 1965 DIABETES-FOOT EXAM WITH MONOFILAMENT 08/23/2019 DIABETES-HGB A1C 08/23/2019 Respiratory Syncytial Virus (RSV) Vaccine Pt: or over 60 yrs (1 - 1-dose 75+ series) 2021 DIABETES-SERUM CREATININE 03/17/20232022, 03/17/2022, 03/16/2022, Additional history exists COVID-19 VACCINE ( season) 2023 DEPRESSION SCREENING 02/24/2024 DIABETES - URINE PROTEIN SCREENING 02/24/2024 MEDICARE AWV CALENDAR YEAR 2024 INFLUENZA VACCINE (Season Ended) 2024 11/12/2020, 12/06/2019, 12/06/2019, Additional history exists DIABETES RETINOPATHY SCREENING 03/13/2025 03/13/2023, 03/13/2023, 09/05/2022, Additional history exists ZOSTER VACCINE Completed 02/28/2020, 12/06/2019 HEPATITIS B VACCINE Aged Out No longe r eligible based on patient's age to complete this topic HIB VACCINE Aged Out No longer eligi ble based on patient's age to complete this topic HPV VACCINE Aged Out No longer eligi ble based on patient's age to complete this topic MENINGOCOCCAL (Group B) VACCINE SHARED DECISION-MAKING Aged Out No longer eligible based on patient's age to complete this topic MENINGOCOCCAL GROUPS A/C/Y/W VACCINE Aged Out No longer eligible based on patient's age to complete this topic Insurance AET AETNA MEDICARE ADV Care Teams Protective Services Social Worker Relationship Specialty Start Date End Date Nura Acosta MD [address] [place] [address] PCP - General Family Medicine 03/13/23
[2024-06-30 14:31] LABS: Basophils Percent Auto 0.1 % (0.2-1.2); Eosinophils Percent Auto 0.1 % (0-4.4); Hematocrit 37.9 % (37.0-47.0); Hemoglobin 12.1 g/dL (12.0-15.0); Immature Granulocyte Absolute 0.07 K/mm3 (0.00-0.031); Immature Granulocyte Percent A 0.8 % (0-0.5); Lymphocytes Absolute Auto 1.92 K/mm3 (0.9-3.2); Lymphocytes Percent Auto 22.3 % (18.3-44.2); Mean Corpuscular HGB Conc 31.9 g/dl (32-36); Mean Corpuscular Hemoglobin 28.6 pg (26-34); Mean Corpuscular Volume 89.6 fl (80-100); Mean Platelet Volume 8.3 fl (7.4-10.4); Monocytes Absolute Auto 0.6 K/mm3 (0.1-0.6); Neutrophils Percent Auto 69.7 % (45.5-73.1); Platelet Count Result 277 k/mm3 (150-375); Red Blood Count 4.23 M/mm3 (4.2-5.4); Red Cell Distribution Width 15.6 % (11.5-14.5); White Blood Count 8.6 K/mm3 (4.5-10.0)
[2024-06-30 14:35] LABS: Blood Urea Nitrogen 33 mg/dL (8-26); Carbon Dioxide 26 mmol/L (22-30); Chloride 102 mmol/L (98-109); Estimated Glomerular Filt Rate 43; Glucose 132 mg/dL (70-105); Ionized Calcium (POC) 1.11 mmol/L (1.11-1.31); Potassium 4.2 mmol/L (3.5-4.9); Sodium 140 mmol/L (138-146)
== END 2024-06-30 14:12 | disposition home or self-care (01) ==
PROVIDERS: PCP Nurse Practitioner; Visit Provider Internal Medicine Hematology & Oncology
DX: D64.9 Anemia, unspecified (principal)
CPT/HCPCS: 36415; 80047; 85025

== ENCOUNTER 2024-08-05 16:01 | Outpatient (CLI) | payer MEDICARE, SELFPAY ==
--- NOTE | ~2024-08-05 | XR_ITS ---
XR abdomen/kub 1V 08/05/2024 16:21 INDICATION: Change in bowel habit TECHNIQUE: KUB COMPARISON: None FINDINGS: Bowel gas pattern is normal. Moderate colonic fecal loading. There is a neural stimulator d evice overlying the right pelvis. Severe lumbar spondylosis with dextroscoliosis. There is no evidenc e of free air, mass, organomegaly, ascites or obstruction. No abnormal calculi are seen. There is a right total hip arthroplasty. IMPRESSION: 1: No acute abdominal abnormality identified. Reviewed, dictated and finalized at location B.
--- OUTSIDE RECORDS SUMMARY | 2024-08-05 16:05 | XMS_ITS | Clinical Summary ---
Author Organization [facility] Address [address] [place] [address] Care Team Providers Care Flat Clothier Name Role Phone Nura Acosta MD Primary Care Provider [phone] Source Comments [facility],non-owned Affiliates and Associated Physician Practices is amultiple site organization consisting of ambulatory clinics and hospital sitesin [place], [place], [place] and [place]. This disclosure is being madepursuant to the Care Everywhere program and may not contain all information available regarding this patient. Last updated 17.[facility] Allergies Active Allergy Reactions Criticality Noted Date [...] tablet by mouth once daily 0 Active FlaskonTOUCH VERIO test strip USE 1 STRIP TO [...] 40 MG capsule 3 Active nystatin (Mycostatin) 892318 UNIT/GM powder APPLY POWDER TOPICALLY THREE TIMES [...] 4 times daily 3 Active HYDROcodone-farnaz taminophen ([place]) 7.5-325 MG tablet Take 1 (one) tablet [...] on file Legal Sex Female 5:21 PM HYDROBLASTER Gender Identity Not on file Sexual Orientation Not on file Last Filed Vital Signs Vital Sign Reading Time Taken Comments Blood Pressure 118/60 03/14/2021 10:58 AM HYDROBLASTER Pulse 74 03/14/2021 10:58 AM HYDROBLASTER Temperature 36.4 C (97.6 F) 03/14/2021 10:58 AM HYDROBLASTER Respiratory Rate 15 11/19/2016 11:30 AM CDT Oxygen Saturation 98% 03/14/2021 10:58 AM HYDROBLASTER Inhaled Oxygen Concentration - - Weight 97.1 kg (214 lb) 04/17/2021 3:20 PM HYDROBLASTER Height 160 cm (5' 3) 04/17/2021 3:20 PM HYDROBLASTER Body Mass Index 37.91 04/17/2021 3:20 PM HYDROBLASTER Plan of Treatment Health Maintenance Due Date [...] Insurance AET AETNA MEDICARE ADV Care Teams Flat Clothier Relationship Specialty Start Date End Date Nura Acosta MD [address] [place] [address] PCP - General Family Medicine 03/13/23
--- OUTSIDE RECORDS SUMMARY | 2024-08-05 16:05 | XMS_ITS ---
Author Name Auto Generated, Auto Generated Organization [facility] Address [address] [place] [address] Phone [phone] Care Team Providers Care Health And Safety Technician Name Role Phone Jai Galeano Unavailable [phone] Mel Doty Unavailable [phone] Bianka Cobos Unavailable [phone] Esther Hollis Unavailable Functional Status No Results Mental Status No [...]
--- OUTSIDE RECORDS SUMMARY | 2024-08-05 16:05 | XMS_ITS | Clinical Summary ---
Author Organization [facility] Address [address] [place] [address] Phone Care Team Providers Care Gastroenterology Manager Name Role Phone Sid Wright DO Primary Care Provider [phone] Allergies Active Allergy Reactions Criticality Noted Date [...] pain 0 Active Lancets (OneTouch Delica Plus [id number]) misc USE 1 TO CHECK GLUCOSE THREE [...] anxiety 0 Active Blood Glucose Monitoring Suppl ([employer] Verio Flex System) w/Device kit USE TO CHECK GLUCOSE TWICE DAILY 1 Active Silver Tail SystemsTouch Verio test strip USE STRIP TO CHECK [...] MOUTH ONCE A WEEK 2 Active Nystop 794785 UNIT/GM powder Apply topically 2 (two) times [...] 3:33 PM CDT Height 160 cm (5' 3) 12/04/2021 3:33 PM CDT Body Mass Index 41.45 12/04/2021 3:33 PM CDT Plan of Treatment Health Maintenance Due Date Last Done Comments Pneumococcal PPSV23/PCV13 65 + Years / Low and Medium Risk (1 of 4 - PCV) 1996 Influenza Vaccine (Season Ended) 2024 11/13/19 21, 12/06/2019 Insurance [employer] MEDICARE ADVANTAGE Care Teams Gastroenterology Manager Relationship Specialty Start Date End Date Sid Wright DO [address] [place] [address] PCP - General Internal Medicine 12/15/19
--- OUTSIDE RECORDS SUMMARY | 2024-08-05 16:05 | XMS_ITS | Clinical Summary ---
Author Organization [facility] Jose Conner Address [address] [place] [address] Care Team Providers Care Orange Grower Name Role Phone Sid Wright Primary Care Provider Allergies Active Allergy Reactions Criticality Noted Date Comments Ciprofloxacin Rash Low 12/14/2023 Erythromycin Diarrhea,Hives High 11/27/2015 Erythromycin Base Hives High 01/13/2019 Penicillins Rash Medium 11/27/2015 Medications pregabalin (LYRICA) 100 mg Capsule Take 100 mg by mouth every 12 hours. 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 02/19/20 21 Active Nystop 100,000 unit/gram powder APPLY TOPICALLY TWICE DAILY 02/20/20 Active pioglitazone (ACTOS) 30 mg tablet Take [...] mg by mouth daily. 07/10/19 23 Active hydroxychloro quine (PLAQUENIL) 200 mg tablet Take 200 mg by mouth daily. Active ferrous sulfate 325 mg (65 mg iron) tabletIndicat ions:Chronic anemia Take 1 tablet by mouth BID. 60 Tablet 2 07/26/19 25 Active ferrous sulfate 325 mg (65 mg iron) tabletIndicat ions:Chronic anemia TAKE 1 TABLET BY MOUTH THREE TIMES DAILY WITH MEALS 90 Tablet 06/30/19 25 025 Discontinued Active Problems Problem Noted Date Diagnosed Date Type 2 diabetes mellitus without complication Normocytic anemia 01/13/2019 Encounters Date Type Department Care Team Description 08/02/2024 External Device Data STL ABSTRACTION Provider, Abstract 07/25/2024 Refill [facility] Oncology and Hematology - [place] [address] [place] [address] Jackson Mariscal MD Chronic anemia 07/01/2024 Orders Only [facility]ology - [place] [address] [place] [address] Jackson Mariscal MD 06/30/2024 2:15 PM CDT Office Visit [facility]ology [address] [place] [address] Jackson Mariscal MD Chronic anemia (Primary Dx) 06/27/2024 Refill [facility] [address] [place] [address] Jackson Mariscal MD Chronic anemia 05/23/2024 Refill [facility] [address] [place] [address] Jackson Mariscal MD Chronic anemia 05/11/2024 External [...] Sign Reading Time Taken Comments Blood Pressure 106/55 06/30/2024 2:36 PM CDT Pulse 87 06/30/2024 2:36 PM CDT Temperature 36 C (96.8 F) 06/30/2024 2:36 PM CDT Respiratory Rate 15 06/30/2024 2:36 PM CDT Oxygen Saturation 93% 06/30/2024 2:36 PM CDT Inhaled Oxygen Concentration - - Weight 81 kg (178 lb 9.6 oz) 06/30/2024 2:36 PM CDT Height 160 cm (5' 3) 12/03/2021 2:23 PM CDT Body Mass Index 31.64 12/03/2021 2:23 PM CDT Plan of Treatment Upcoming Encounters Date Type Department Care Team (Late st Contact Info) Description 01/05/2025 2:45 PM BIOMEDICAL SCIENTIST Office Visit [facility] Oncology and Hematology - [place] [address] [place] [address] Jackson Mariscal MD [address] [place] [address] Health Maintenance Due Date Last Done Comments [...] Date/Time Associated Diagnosis Comments BASIC METABOLIC PANEL Routine 06/30/2024 3:58 PM CDT CBC WITH DIFFERENTIAL Routine 06/30/2024 3:57 PM CDT VITAMIN B12 AND FOLATE Routine 06/22/2024 12:53 PM CDT Chronic anemia IRON, TIBC, AND PERCENT SATURATION Routine 06/22/2024 12:53 PM CDT Chronic anemia FERRITIN Routine 06/22/2024 12:53 PM CDT Chronic anemia OCCULT BLOOD IMMUNOASSAY, COLORECTAL SCREEN Routine 01/05/2019 7:30 AM BIOMEDICAL SCIENTIST from Last 3 Months or Most Recently Relevant to Health Maintenance Results * BASIC METABOLIC PANEL (06/30/2024 3:58 PM CDT) Blood Jackson Mariscal MD CHEMISTRY ORDERABLES Final Resu lt * CBC WITH DIFFERENTIAL (06/30/2024 3:57 PM CDT) Blood Jackson Mariscal MD HEMATOLOGY ORDERABLES Final Res ult * VITAMIN B12 AND FOLATE (06/22/2024 12:53 PM CDT) Pathologist [facility] VITAMIN B12 860 200 - 1100 pg/mL [facility] FOLATE, SERUM >24.0 ng/mL [facility] Comment: Reference Range Low: <3.4 Borderline: 3.4-5.4 Normal: >5.4 FASTING:NO FASTING: NO Test Performed at: [facility] [address] [place] [address] Coty Adams MD Blood 06/22/2024 12:5 3 PM CDT 06/22/2024 12:56 PM CDT Jackson Mariscal MD CHEMISTRY ORDERABLES Final Resu lt [facility] [phone] [facility] [address] [place] [address] * (ABNORMAL) IRON, TIBC, AND PERCENT SATURATION (06/22/2024 12:53 PM CDT) Pathologist [facility] IRON 147 45 - 160 mcg/dL [facility] TIBC 279 250 - 450 mcg/dL (calc) [facility] IRON % SATURATION 53(H) 16 - 45 % (calc) [facility] Comment: FASTING:NO FASTING: NO Test Performed at: [facility] [address] [place] [address] Coty Adams MD Blood 06/22/2024 12:5 3 PM CDT 06/22/2024 12:56 PM CDT Jackson Mariscal MD CHEMISTRY ORDERABLES Final Resu lt Performing Organization Address [facility]/ZIP Co de Phone Number [facility] [phone] [facility] [address] * (ABNORMAL) FERRITIN (06/22/2024 12:53 PM CDT) FERRITIN 456(H) 16 - 288 ng/mL [facility] Comment: Test Performed at: [id number] [address] Coyt Adams MD Blood 06/22/2024 12:5 3 PM CDT 06/22/2024 12:56 PM CDT Jackson Mariscal MD CHEMISTRY ORDERABLES Final Resu lt Performing Organization Address [facility] Co de Phone Number [facility] [phone] [facility] [address] * OCCULT BLOOD IMMUNOASSAY, COLORECTAL SCREEN (01/05/2019 7:30 AM BIOMEDICAL SCIENTIST) FECAL GLOBIN [facility] Comment: FECAL GLOBIN BY IMMUNOCHEMISTRY MICRO NUMBER: [id number] TEST STATUS: FINAL SPECIMEN SOURCE: INSURE (TM) FOBT TEST CARD SPECIMEN QUALITY: ADEQUATE Fecal Globin: Not Detected SPLIT 01/03/2019 FROM [id number] Test Performed at: [id number] [address] Jonatan Anderson D.O., MPH 01/05/2019 7:30 AM BIOMEDICAL SCIENTIST Jackson Mariscal MD BODY FLUIDS AND STOOLS Edited R esult - Final [facility] [address] [place] [address] from Last 3 Months or Most Recently Relevant to Health Maintenance Insurance [employer] HMO MCR Care Teams Orange Grower Relationship Specialty Start Date End Date Sid Wright DO [address] [facility] [address] [place] [address] PCP - General Internal Medicine 12/14/23
--- OUTSIDE RECORDS SUMMARY | 2024-08-05 16:05 | XMS_ITS ---
Author Name Auto Generated, Auto Generated Organization [facility] Address [address] [place] [address] Phone [phone] Care Team Providers Care Hcc Coders Name Role Phone Jai Galeano Unavailable Mel Doty Unavailable [phone] Bianka Cobos Unavailable [phone] Esther Hollis Unavailable Functional Status No Results [...]
== END 2024-08-05 16:02 | disposition home or self-care (01) ==
PROVIDERS: PCP Nurse Practitioner; Visit Provider Nurse Practitioner Family
DX: K59.00 Constipation, unspecified (principal); R19.7 Diarrhea, unspecified
CPT/HCPCS: 74018

== ENCOUNTER 2024-08-15 09:42 | Outpatient (CLI) | payer MEDICARE, SELFPAY ==
--- NOTE | 2024-08-15 09:52 | ECHO_ITS ---
Patient Info Name: Tereza Jerome Age: 79 years : 1945 Gender: Female Ht: 63 in Wt: 183 lbs BSA: 1.95 m2 HR: 88 bpm BP: 142 / 81 mmHg Technical Quality: Fair Exam Date: 08/15/2024 9:58 AM Patient Status: O Admit Date: 08/15/2024 Exam Type: CA echo doppler color flow Complete two-dimensional, color flow and Doppler transthoracic echocardiogram is performed. Strain analysis performed. Leadership Program Intern: Joleen Candelario Attending Provider: Cayetano Garcia DO Summary 1. Complete two-dimensional, color flow and Doppler transthoracic echocardiogram is performed. 2. Left ventricular chamber dimension is normal. 3. Left ventricular systolic function is normal, estimated at 60-65. 4. The left ventricular diastolic function is grade I diastolic dysfunction. 5. Global longitudinal strain is abnormal at -14.5%. 6. E/e' 17 is elevated. 7. There is mild aortic valve sclerosis. 8. There is mild to moderate aortic valve regurgitation. 9. The mitral valve has a mildly calcified annulus. 10. There is trace tricuspid valve regurgitation. 11. No pulmonary hypertension, estimated pulmonary arterial systolic pressure is 31 mmHg. Left Ventricle E/e' 17 is elevated. Left ventricular chamber dimension is normal. Left ventricular systolic function is normal, estimated at 60-65. The left ventricular diastolic function is grade I diastolic dysfunction. Global longitudinal strain is abnormal at -14.5%. Right Ventricle Right ventricular chamber dimension is normal. Right ventricular systolic function is normal. Left Atria Left atrial chamber dimension is normal. Right Atria Right atrial chamber dimension is normal. Aortic Valve The aortic valve is trileaflet. There is mild aortic valve sclerosis. There is no aortic valve stenosis. There is mild to moderate aortic valve regurgitation. Pulmonic Valve There is no pulmonic regurgitation. Mitral Valve The mitral valve has a mildly calcified annulus. There is no mitral valve stenosis. There is no mitral valve regurgitation. Tricuspid Valve There is trace tricuspid valve regurgitation. No pulmonary hypertension, estimated pulmonary arterial systolic pressure is 31 mmHg. Pericardium/Pleural There is no pericardial effusion. Inferior Vena Cava Normal inferior vena cava with >50% collapse upon inspiration consistent with normal right atrial pressure, 5 mmHg. Aorta The aortic root size at the sinus of Valsalva is normal. Left Ventricular Outflow Tract Name Value Normal LVOT 2D LVOT Diameter 1.9 cm LVOT Doppler LVOT Peak Velocity 108 cm/s LVOT Peak Gradient 4 mmHg LVOT Mean Gradient 2 mmHg LVOT VTI 24 cm LVOT VTI/AV VTI Ratio 0.9 LVOT Stroke Volume 66 ml LVOT CO 4.8 l/min LVOT CI 2.5 l/min/m2 Pulmonic Valve Name Value Normal RVOT Doppler RVOT Peak Velocity 57 cm/s RVOT Peak Gradient 1 mmHg PV Doppler PV Peak Velocity 71 cm/s PV Peak Gradient 2 mmHg Mitral Valve Name Value Normal MV Diastolic Function MV E Peak Velocity 96 cm/s MV A Peak Velocity 149 cm/s MV E/A 0.6 MV Decel Time (PW) 119 ms Tricuspid Valve Name Value Normal TV Regurgitation Doppler TR Peak Velocity 253 cm/s TR Peak Gradient 26 mmHg Estimated PAP/RSVP RA Pressure 5 mmHg <=5 PA Systolic Pressure 31 mmHg <36 RV Systolic Pressure 31 mmHg <36 Aorta Name Value Normal Ascending Aorta Ao Root Diameter (MM) 3.0 cm Ao Root Diam Index (MM) 1.5 cm/m2 Aortic Valve Name Value Normal AV Doppler AV Peak Velocity 121 cm/s AV Peak Gradient 6 mmHg AV Mean Gradient 3 mmHg AV VTI 26 cm AV Area (Cont Eq VTI) 2.6 cm2 >=3.0 AV Area (Cont Eq Eamon) 2.5 cm2 AV DI (Eamon) 0.89 AV Regurgitation 2D LVOT Area 2.8 cm2 Ventricles Name Value Normal LV Dimensions 2D/MM IVS Diastolic Thickness (2D) 0.9 cm 0.6-1.0 IVS Diastole Thickness (MM) 1.2 cm 0.6-0.9 LVID Diastole (2D) 4.1 cm 3.8-5.2 LVID Diastole (MM) 5.5 cm 3.8-5.2 LVIW Diastolic Thickness (2D) 0.8 cm 0.6-0.9 LVIW Diastolic Thickness (MM) 0.9 cm 0.6-0.9 LVID Systole (2D) 3.1 cm 2.2-3.5 LVID Systole (MM) 3.4 cm 2.2-3.5 LVOT Diameter 1.9 cm LV Mass (2D Cubed) 108.46 g 67.00-162.00 LV Mass Index (2D Cubed) 56 g/m2 43-95 Relative Wall Thickness (2D) 0.41 <=0.42 LV Mass (MM Cubed) 228.17 g 67.00-162.00 LV Mass Index (MM Cubed) 117 g/m2 43-95 Relative Wall Thickness (MM) 0.32 LV Fractional Shortening/Ejection Fraction 2D/MM LV Fractional Shortening (2D) 25 % 27-45 LV Fractional Shortening (MM) 37 % 27-45 LV EF (MM Teichholz) 67 % LV EF (2D Teichholz) 50 % LV Diastolic Volume (4C MOD) 62 ml LV EF (4C MOD) 47 % LV Diastolic Volume (2C MOD) 46 ml LV EF (2C MOD) 55 % LV Diastolic Volume (BP MOD) 53 ml 46-106 LV Diastolic Volume Index (BP MOD) 27 ml/m2 29-61 LV Systolic Volume (BP MOD) 27 ml 14-42 LV Systolic Volume Index (BP MOD) 14 ml/m2 8-24 LV EF (BP MOD) 50 % 54-74 LV Diastolic Length (4C) 7.7 cm LV Systolic Length (4C) 6.6 cm LV Stroke Volume (4C MOD) 29 ml Atria Name Value Normal LA Dimensions LA Dimension (MM) 3.6 cm 2.7-3.8 LA Volume (4C A-L) 32 ml LA Volume (BP A-L) 30 ml RA Dimensions RA Systolic Major [place] Length (4C) 4.1 cm 2.2-2.8 RA Area (4C) 10.7 cm2 <=18.0 EchoPAC Name Value Normal AutoEF LVCO_BiP_Q (Ubid8KZG) 3.0 l/min LVEF_BiP_Q (Wrui7ZYC) 49 % LVSV_BiP_Q (Fhhf8BSS) 37 ml LVVED_BiP_Q (Mgdl8ZPK) 76 ml LVVES_BiP_Q (Gfac4ABJ) 39 ml HR_4Ch_Q (Dbsa9LTP) 82 bpm LVCO_4Ch_Q (Oxqd1HWL) 3.0 l/min LVEF_4Ch_Q (Ijes5KNE) 47 % LVLd_4Ch_Q (Ttat1KHW) 8.1 cm LVLs_4Ch_Q (Sfhy7GQO) 6.9 cm LVSV_4Ch_Q (Enbx8UCZ) 37 ml LVVED_4Ch_Q (Aqqg6RRM) 78 ml LVVES_4Ch_Q (Kqtr0MVJ) 41 ml HR_2Ch_Q (Bzqd1DZI) 82 bpm LVCO_2Ch_Q (Cldi8AQQ) 3.1 l/min LVEF_2Ch_Q (Azcq3RTG) 51 % LVLd_2Ch_Q (Ncnt5IHF) 7.7 cm LVLs_2Ch_Q (Nkdw3TQH) 6.5 cm LVSV_2Ch_Q (Zdvi2QED) 37 ml LVVED_2Ch_Q (Ddcs8JPH) 73 ml LVVES_2Ch_Q (Sjgt2DTC) 36 ml SERA LV Apical Anterior Longitudinal Strain (SERA) -15.8 % LV Apical Anteroseptal Longitudinal Strain (SERA) -12.4 % LV Apical Inferior Longitudinal Strain (SERA) -21.4 % LV Apical Lateral Longitudinal Strain (SERA) -8.0 % LV Apical Posterior Longitudinal Strain (SERA) -15.0 % LV Apical Septal Longitudinal Strain (SERA) -10.6 % AV Closure (SERA) 438 ms LV Basal Anterior Longitudinal Strain (SERA) -14.7 % LV Basal Anteroseptal Longitudinal Strain (SERA) -14.0 % LV Basal Inferior Longitudinal Strain (SERA) -16.9 % LV Basal Anterolateral Longitudinal Strain (SERA) -18.7 % LV Basal Inferolateral Longitudinal Strain (SERA) -16.6 % LV Basal Inferoseptal Longitudinal Strain (SERA) -15.6 % LV Global Longitudinal Strain (2C SERA) -14.9 % LV Global Longitudinal Strain (4C SERA) -14.6 % LV Global Longitudinal Strain (APLAX SERA) -14.2 % LV Global Longitudinal Strain (SERA) -14.6 % LV Mid Anterior Longitudinal Strain (SERA) -7.7 % LV Mid Anteroseptal Longitudinal Strain (SERA) -13.8 % LV Mid Inferior Longitudinal Strain (SERA) -18.4 % LV Mid Anterolateral Longitudinal Strain (SERA) -16.6 % LV Mid Inferolateral Longitudinal Strain (SERA) -13.8 % LV Mid Inferoseptal Longitudinal Strain (SERA) -16.4 % Report Signatures
== END 2024-08-15 09:43 | disposition home or self-care (01) ==
PROVIDERS: PCP Nurse Practitioner; Visit Provider Internal Medicine Cardiovascular Disease
DX: I51.89 Other ill-defined heart diseases (principal); I35.8 Other nonrheumatic aortic valve disorders; I35.1 Nonrheumatic aortic (valve) insufficiency; I34.81 Nonrheumatic mitral (valve) annulus calcification
CPT/HCPCS: 93306

== ENCOUNTER 2024-08-29 18:23 | Emergency (ER) | payer MEDICARE, SELFPAY ==
[2024-08-29 18:32] VITALS: BP 117/56; PULSE 90; RESP 16; TEMP 37.1; O2SAT 96
--- NOTE | 2024-08-29 18:41 | ED.LOWEXIN ---
HPI - Extremity Injury (Lower) General Chief Complaint: Extremity Injury, Lower Stated Complaint: Left Thigh Injury Time Seen by Provider: 08/29/24 18:43 Source: patient and RN notes reviewed Mode of arrival: ambulatory Limitations: no limitations History of Present Illness HPI Narrative: 79-year-old female presents with concern for left upper thigh/hip pain. Reports a few hours ago she was [place] a casino when a tray of a slot machine fell on to her. She reports circumferential hip pain. She uses a cane at baseline for her back pain. MD complaint: hip injury Related Data Home Medications ?Medication ?Instructions ?Recorded ?Confirmed ?Last Taken ?Type ferrous sulfate 325 mg (65 mg 325 mg PO TID 10/25/19 08/12/24 09/09/20 History iron) tablet ascorbic acid (vitamin C) 1,000 mg 1 g PO BID 08/13/22 08/12/24 Unknown History capsule aspirin 81 mg tablet 81 mg PO DAILY 08/13/22 08/12/24 11/25/23 History cetirizine 10 mg tablet 10 mg PO DAILY PRN Allergy Symptoms 08/13/22 08/12/24 Unknown History nystatin 100,000 unit/gram topical 1 applic topical BID PRN Rash 08/13/22 08/12/24 Unknown History powder cyanocobalamin (vitamin B-12) 500 500 mcg PO 3XW 12/15/22 08/12/24 Unknown History mcg tablet magnesium oxide 400 mg PO DAILY 12/31/22 08/12/24 Unknown History tizanidine 4 mg capsule (Zanaflex) 4 mg PO TID PRN 08/12/24 08/12/24 Unknown History Allergies Allergy/AdvReac Type Severity Reaction Status Date / Time Penicillins Allergy Unknown Rash Verified 08/29/24 18:26 cephalexin Allergy Rash Verified 08/29/24 18:26 erythromycin base AdvReac Unknown Diarrhea Verified 08/29/24 18:26 Review of Systems Review of Systems: CONSTITUTIONAL: Denies malaise, chills, sweats, or fever. SKIN: Denies rash or itching, open skin, laceration, abrasion, redness, warmth, swelling. MUSCULOSKELETAL: Reports left thigh and hip pain NEUROLOGIC: Denies numbness, weakness All systems reviewed & are unremarkable except as noted in HPI and below PMFSH Past Medical History Medical History Chronic sphenoidal sinusitis Chronic maxillary sinusitis Sinus headache BMI 31.0-31.9,adult Hip pain, bilateral Arthritis of left knee Degenerative joint disease (DJD) of lumbar spine COVID-19 Bilateral hand pain Renal insufficiency Lumbar and sacral arthritis Osteoarthritis of left knee Screening for breast cancer Mass of both axillae Bilateral shoulder region arthritis Bilateral shoulder pain Hemoglobin A1c less than 7.0% 6.9 on 04/05/19 BMI 38.0-38.9,adult Stroke Hypertension Fibromyalgia (~2009) Gastric ulcer without hemorrhage or perforation Adhesive capsulitis of right shoulder Generalized osteoarthritis of multiple sites (~2009) Seronegative rheumatoid arthritis of both hands (~2014) Anemia Anxiety Arthritis Depression Diabetes a1c=6.9 (04/05/19) Surgical History Surgical History History of knee surgery 12/2013 Dr. Peña Hx of cholecystectomy History of carpal tunnel release H/O cataract extraction H/O elbow surgery H/O: hysterectomy History of hip replacement 03/2018 Family History Family History Father Hypertension Family history of diabetes mellitus in first degree relative Diabetes mellitus Carcinoma of colon Mother Hypertension Carcinoma of colon Sibling Carcinoma of colon Grandparent Cerebrovascular accident Other Family history of cardiovascular disease Family history of malignant neoplasm Social History Social History Smoking packs per day: 0.25 Smoking cigarettes per day: 5.0 Years smoked: 15 Smoking pack-years: 3.75 Smoking status: Former smoker Tobacco type: cigarettes Second hand tobacco smoke exposure: Yes Smoking end date: 08/23/84 Alcohol intake: current Alcohol use details: occasional Substance use: never Substance use type: does not use Current Housing: Decline to Answer Concerned About Future Housing: Decline to Answer Difficulty Paying Gas/Electric Bills: Decline to Answer Difficulty Paying for Meds: Decline to Answer Currently Unemployed: Decline to Answer Education: Decline to Answer Difficulty w/ Childcare or Family Care: Decline to Answer Living arrangements: alone Additional living arrangements comments: Occupation/Education: 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 There is no relevant family history pertinent to the presenting complaint Exam Narrative: GENERAL: Well-appearing, well-nourished, and in no acute distress. HEAD: Normocephalic, atraumatic. EYES: PERRLA, conjunctivae clear NECK: Supple. CHEST: Speaks in full sentences. No respiratory distress. HEART: Regular rate and rhythm. Normal and equal peripheral pulses. EXTREMITIES: Left lower extremity has grossly normal sensation, grossly normal range of motion. No edema or ecchymosis. Normal sensation with sensitivity to light touch and pain. point tenderness anteriorly, laterally and posteriorly to the left hip. No open wounds, no skin tenting, no devitalized tissue or atrophy, no trophic changes, no obvious deformity, alignment normal, nearby joints and structures intact. Distal pulses palpable, skin warm, dry, pink. Capillary refill less than 3 seconds. Patient's gait favoring the left hip, however patient uses a cane at baseline for back pain SKIN: Warm, dry, no rash. NEURO: Alert and oriented x3. PSYCH: Normal mood and affect Course Course Emergency Course: We do not have capability to do x-ray today at the [facility], patient is insisting on x-ray, we will transfer patient to emergency room to facilitate x-ray as the provider at the emergency room sees fit. Patient is aware of, understands and agrees to transfer. Patient agrees to proceed directly to the emergency department. Portions of this record may have been created with voice recognition software Level of Care: [facility] Visit Vital Signs Vital signs: Vital Signs Temperature 98.8 F 08/29/24 18:32 Pulse Rate 90 08/29/24 18:32 Respiratory Rate 16 08/29/24 18:32 Blood Pressure 117/56 L 08/29/24 18:32 Pulse Oximetry 96 08/29/24 18:32 Oxygen Delivery Room Air 08/29/24 18:32 Temperature 98.8 F 08/29/24 18:32 Pulse Rate 90 08/29/24 18:32 Respiratory Rate 16 08/29/24 18:32 Blood Pressure 117/56 L 08/29/24 18:32 Pulse Oximetry 96 08/29/24 18:32 Oxygen Delivery Room Air 08/29/24 18:32 Reviewed. Transfer Transfered to: [facility] Transportation: Other (Private vehicle) Transfer rationale: Hip pain Accepting physician: Guillermo MDM - Extremity Injury (Lower) MDM Narrative Medical decision making narrative: The patient was evaluated by myself in the express care. History is obtained from patient who is an independent historian and physical exam was performed.? Available medical records were reviewed at this time. ? Exam findings show no acute concerns or changes; patient is non-toxic appearing and is in no distress. ? I have evaluated and discussed social determinants of health with the patient that could potentially impact subsequent diagnosis and treatment plans. ? Patients injury and pain is consistent with musculoskeletal etiology. No signs of neurological or vascular compromise on exam. Compartments and tissues are soft without signs of compartment syndrome. Critical Care Time Critical Care Time Critical Care Time: No Discharge Plan Discharge Clinical Impression: Injury of hip Patient Disposition: Acute Care Hospital Condition: Stable Patient Language: Danish Prescriptions: No Action nystatin 100,000 unit/gram powder 1 applic topical BID PRN (Reason: Rash) cetirizine 10 mg Tablet 10 mg PO DAILY PRN (Reason: Allergy Symptoms) aspirin 81 mg Tablet 81 mg PO DAILY ascorbic acid (vitamin C) 1,000 mg Capsule 1 g PO BID cyanocobalamin (vitamin B-12) 500 mcg tablet 500 mcg PO 3XW Rx Instructions: 500 mcg orally three tabs weekly; magnesium oxide 400 mg magnesium capsule 400 mg PO DAILY Rinvoq 15 mg tablet extended release 24 hr 15 mg PO DAILY Qty: 30 11RF (DME) FreeStyle Tiera 2 Sensor Kit See Rx Instructions .Route Qty: 1 4RF Rx Instructions: As directed azelastine 137 mcg (0.1 %) spray,non-aerosol 1 spray intranasal Q12H 30 Days Qty: 30 2RF Rx Instructions: administer into each nostril fluticasone propionate 50 mcg/actuation spray,suspension 1 spray intranasal DAILY 30 Days Qty: 16 2RF Rx Instructions: administer into each nostril levothyroxine [Euthyrox] 100 mcg tablet 100 mcg PO DAILY Qty: 90 3RF Patient Comments: IN AM Rx Instructions: Take 1 tablet by mouth once daily cyclobenzaprine 10 mg tablet 10 mg PO TID PRN (Reason: muscle spasm) Qty: 90 1RF tizanidine [Zanaflex] 4 mg capsule 4 mg PO TID PRN celecoxib [Celebrex] 200 mg capsule 200 mg PO DAILY Qty: 30 0RF ferrous sulfate 325 mg (65 mg iron) tablet 325 mg PO TID cholecalciferol (vitamin D3) 50 mcg (2,000 unit) tablet 50 mcg PO DAILY Qty: 90 1RF calcium carbonate 500 mg calcium (1,250 mg) tablet 500 mg PO DAILY Qty: 90 1RF (DME) FreeStyle Tiera 2 [place] Misc See Rx Instructions .Route Qty: 1 0RF Rx Instructions: As directed leflunomide 10 mg tablet 10 mg PO DAILY Qty: 90 1RF atorvastatin 10 mg tablet 10 mg PO DAILY Qty: 100 1RF pioglitazone 30 mg tablet 30 mg PO DAILY Qty: 100 1RF Patient Comments: QAM potassium chloride 20 mEq tablet extended release 20 meq PO BID Qty: 180 2RF trazodone 100 mg tablet 100 mg PO .COMPLEX PRN (Reason: sleep) Qty: 180 1RF Rx Instructions: 100 mg orally Take 1-2 PO QHS PRN sleep PRN; ondansetron HCl 4 mg tablet 4 mg PO Q6H PRN (Reason: Nausea) Qty: 60 1RF metformin 1,000 mg tablet See Rx Instructions .ROUTE .COMPLEX Qty: 180 0RF Dose Instruction: Take 1 tablet by mouth twice daily with food Rx Instructions: Take 1 tablet by mouth twice daily with food losartan 100 mg tablet 100 mg PO DAILY Qty: 100 3RF Patient Comments: IN AM Rx Instructions: Take 1 tablet by mouth once daily pregabalin [Lyrica] 100 mg capsule 100 mg PO BID Qty: 180 1RF furosemide [Lasix] 40 mg tablet 40 mg PO DAILY Qty: 90 1RF Patient Comments: IN AM alprazolam [Xanax] 0.5 mg tablet 0.5 mg PO BID PRN (Reason: Anxiety) Qty: 60 0RF folic acid 1 mg tablet 1 mg PO DAILY Qty: 90 1RF omeprazole 40 mg capsule,delayed release(DR/EC) 40 mg PO DAILY Qty: 90 1RF Ozempic 2 mg/dose (8 mg/3 mL) pen injector See Rx Instructions .ROUTE .COMPLEX Qty: 3 5RF Dose Instruction: INJECT 2 MG SUBCUTANEOUSLY ONCE A WEEK Patient Comments: SUNDAYS Rx Instructions: INJECT 2 MG SUBCUTANEOUSLY ONCE A WEEK metoprolol succinate 50 mg tablet extended release 24 hr See Rx Instructions .ROUTE .COMPLEX Qty: 30 5RF Dose Instruction: Take 1 tablet by mouth once daily Rx Instructions: Take 1 tablet by mouth once daily lubiprostone 8 mcg capsule 8 mcg PO BID Qty: 60 3RF hydrocodone-acetaminophen 5-325 mg tablet 1 tablet PO TID PRN (Reason: Pain) Qty: 60 0RF duloxetine 60 mg capsule,delayed release(DR/EC) See Rx Instructions .ROUTE .COMPLEX Qty: 60 5RF Dose Instruction: Take 1 capsule by mouth twice daily Rx Instructions: Take 1 capsule by mouth twice daily alendronate 70 mg tablet 70 mg PO WEEKLY Qty: 12 1RF Patient Comments: TAKES ON SUNDAYS Rx Instructions: Sundays Follow-up/Referrals: Gian Weaver APRN [Primary Care Provider] - Time of Disposition: 18:53
== END 2024-08-29 18:50 | disposition short-term general hospital (02) ==
PROVIDERS: Emergency Provider Nurse Practitioner; PCP Nurse Practitioner
DX: S79.912A Unspecified injury of left hip, initial encounter (principal); W20.8XXA Other cause of strike by thrown, projected or falling object, initial encounter; I10 Essential (primary) hypertension; M79.7 Fibromyalgia; E11.9 Type 2 diabetes mellitus without complications; Z79.84 Long term (current) use of oral hypoglycemic drugs; Z79.85 Long-term (current) use of injectable non-insulin antidiabetic drugs; Z86.73 Personal history of transient ischemic attack (TIA), and cerebral infarction without residual deficits; M47.816 Spondylosis without myelopathy or radiculopathy, lumbar region; M17.12 Unilateral primary osteoarthritis, left knee; M19.012 Primary osteoarthritis, left shoulder; M19.011 Primary osteoarthritis, right shoulder; M06.042 Rheumatoid arthritis without rheumatoid factor, left hand; M06.041 Rheumatoid arthritis without rheumatoid factor, right hand; D64.9 Anemia, unspecified; F41.9 Anxiety disorder, unspecified; F32.A Depression, unspecified; Z86.16 Personal history of COVID-19; Z79.82 Long term (current) use of aspirin
CPT/HCPCS: 99212; G0463

== ENCOUNTER 2024-08-29 19:23 | Emergency (ER) | payer OTHER, MEDICARE, SELFPAY ==
--- NOTE | ~2024-08-29 | XR_ITS ---
EXAM: XR hip LT min 2V DATE: 08/29/2024 21:00 HISTORY: slot machine tray fell on left hip . COMPARISON: 06/11/2023. FINDINGS: Right sided stimulator pack. Severe lumbar degenerative disc disease. Degenerative changes in the SI joints and pubic stenosis. Mild osteophytosis of the left hip. Scattered pelvic enthesopat hy. IMPRESSION: No acute osseous finding in the left hip. Reviewed, dictated and finalized at location K.
--- OUTSIDE RECORDS SUMMARY | 2024-08-29 19:25 | XMS_ITS | Clinical Summary ---
Author Organization [facility] Address [address] [place] [address] Care Team Providers Care Job Boss Name Role Phone Nura Acosta MD Primary Care Provider [phone] Source Comments [facility],non-owned Affiliates and Associated Physician Practices is amultiple site organization consisting of ambulatory clinics and hospital sitesin [place], [place], [place] and [place]. This disclosure is being madepursuant to the Care Everywhere program and may not contain all information available regarding this patient. 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 Gender Identity Not on file Sexual Orientation Not on file Last Filed Vital Signs Vital Sign Reading Time Taken Comments Blood Pressure 118/60 03/14/2021 10:58 AM PILOT TEACHER Pulse 74 03/14/2021 10:58 AM PILOT TEACHER Temperature 36.4 C (97.6 F) 03/14/2021 10:58 AM PILOT TEACHER Respiratory Rate 15 11/19/2016 11:30 AM CDT Oxygen Saturation 98% 03/14/2021 10:58 AM PILOT TEACHER Inhaled Oxygen Concentration - - Weight 97.1 kg (214 lb) 04/17/2021 3:20 PM PILOT TEACHER Height 160 cm (5' 3) 04/17/2021 3:20 PM PILOT TEACHER Body Mass Index 37.91 04/17/2021 3:20 PM PILOT TEACHER Plan of Treatment Health Maintenance Due Date [...] Insurance AET [employer] MEDICARE ADV Care Teams Job Boss Relationship Specialty Start Date End Date Nura Acosta MD [address] [place] [address] PCP - General Family Medicine 03/13/23
--- OUTSIDE RECORDS SUMMARY | 2024-08-29 19:25 | XMS_ITS | Clinical Summary ---
Author Organization [facility] Address [address] [place] [id number] Phone Care Team Providers Care Manager Food Name Role Phone Sid Wright DO Primary Care Provider [phone] Allergies Active Allergy Reactions Criticality Noted Date [...] pain 0 Active Lancets (OneTouch Delica Plus Doyspy45V) misc USE 1 TO CHECK GLUCOSE THREE [...] anxiety 0 Active Blood Glucose Monitoring Suppl (MoodMe Verio Flex System) w/Device kit USE TO CHECK GLUCOSE TWICE DAILY 1 Active Brand NetworksTouch Verio test strip USE STRIP TO CHECK [...] MOUTH ONCE A WEEK 2 Active Nystop 597677 UNIT/GM powder Apply topically 2 (two) times [...] / Low and Medium Risk (1 of 2 - PCV) 1996 Influenza Vaccine (#1) 2024 11/12/2020, 2019 Insurance AETNA MEDICARE ADVANTAGE Care Teams Manager Food Relationship Specialty Start Date End Date Sid Wright DO [address] [place] [address] PCP - General Internal Medicine 12/15/19
--- OUTSIDE RECORDS SUMMARY | 2024-08-29 19:25 | XMS_ITS | Clinical Summary ---
Author Organization [facility] Address [address] [place] [address] Care Team Providers Care Offbearer Sewer Pipe Name Role Phone Jamey Barrera MD Primary Care Provider [phone] Allergies Active Allergy Reactions Criticality Noted Date [...] Date CAP (community acquired pneumonia) 03/09/2022 03/10/2022 Family History Medical History Relation Comments No [...] place to sleep or slept in a jail (including now)? No 03/10/2022 Comments No Sex and Gender Information Value Date Recorded Sex Assigned at Female 04/07/2024 11:55 AM WHEEL AND PINION INSPECTOR Legal Sex Female 12:19 PM WHEEL AND PINION INSPECTOR Gender Identity Not on file Sexual Orientation Not on file Last Filed Vital Signs Vital Sign Reading Time Taken Comments Blood Pressure 113/59 04/07/2024 11:45 AM WHEEL AND PINION INSPECTOR Pulse 71 04/07/2024 11:45 AM WHEEL AND PINION INSPECTOR Temperature 37 C (98.6 F) 04/07/2024 11:45 AM WHEEL AND PINION INSPECTOR Respiratory Rate 19 04/07/2024 11:45 AM WHEEL AND PINION INSPECTOR Oxygen Saturation 98% 04/07/2024 11:45 AM WHEEL AND PINION INSPECTOR Inhaled Oxygen Concentration - - Weight 97.5 kg (215 lb) 04/07/2024 11:45 AM WHEEL AND PINION INSPECTOR Height 160 cm (5' 3) 04/07/2024 11:45 AM WHEEL AND PINION INSPECTOR Body Mass Index 38.09 04/07/2024 11:45 AM WHEEL AND PINION INSPECTOR Plan of Treatment Health Maintenance Due Date Last Done Comments Hepatitis C 1963 DTaP, Tdap and Td Vaccines (1 - Tdap) 1964 Annual Medicare Wellness Visit 2011 Dexa Scan (General) 2011 Pneumococcal Vaccine: 50+ Years (2 of 2 - PPSV23) 12/26/2016 12/27/2015 RSV Immunization or 60+ Years (1 - 1-dose 75+ series) 2021 COVID-19 Vaccine ( - season) 2023 01/02/2022, 09/10/2021, 12/27/2020, Additional history [...] upon discharge from hospital Lifestyle No Cece Norman, RN Insurance A[employer] Advance Directives * Full Code (Latest Code Status on File) Date Activated Date Inactivated Comments 03/24/2022 6:46 PM 04/07/2024 11:42 AM * Full Code Date Activated Date Inactivated Comments 03/09/2022 7:36 PM 03/17/2022 7:45 PM Care Teams Offbearer Sewer Pipe Relationship Specialty Start Date End Date Jamey Barrera MD PCP - General INTERNAL MEDICINE 03/12/22
--- OUTSIDE RECORDS SUMMARY | 2024-08-29 19:25 | XMS_ITS | Clinical Summary ---
Author Organization [facility] Jose Conner Address [address] [place] [address] Care Team Providers Care Behavioral Assistant Name Role Phone Sid Wright April CEDENO Primary Care Provider Allergies Active Allergy Reactions Criticality Noted Date Comments Ciprofloxacin Rash Low 12/14/2023 Erythromycin Diarrhea,Hives High 11/27/2015 Erythromycin Base Hives High 01/13/2019 Penicillins Rash Medium 11/27/2015 Medications pregabalin (LYRICA) 100 mg Capsule Take 100 mg by mouth every 12 hours. Active levothyroxine 100 mcg tablet Take 100 mcg by mouth daily home maker. Active losartan (COZAAR) 100 mg tablet Take [...] Release tablet Take 20 mEq by mouth. 7 Active latanoprost (XALATAN) 0.005 % solution INT 1 GTT IN OU HS 4 9 Active HYDROcodone-ac etaminophen (NORCO) 5-325 mg tablet TK 1 T PO TID PRF PAIN 0 9 Active furosemide (LASIX) 40 mg tablet TK 1 T PO QD 0 9 Active flu vaccine trivalent (65 yr+)(PF)(FLUZO NE HIGH DOSE) 180 mcg/0.5 mL IM syringe Fluzone High-Dose (PF) 180 mcg/0.5 mL intramuscular syringe TO BE ADMINISTERED BY PHARMACIST FOR IMMUNIZATION Active ONETOUCH ULTRA BLUE TEST STRIP Strip U UTD TO TEST BLOOD GLUCOSE ONCE D 2 9 Active atorvastatin (LIPITOR) 10 mg tablet atorvastatin 10 mg tablet Active aspirin (ECOTRIN EC) 81 mg Tablet, Delayed Release (E.C.) Take 81 mg by mouth. 6 Active ondansetron (ZOFRAN) 4 mg Tablet ondansetron HCl 4 mg tablet Active ALPRAZolam (XANAX) 0.5 mg tablet TK 1 T PO TID PRN 0 9 Active upadacitinib (Rinvoq) 15 mg Tablet Sustained Release 24HR Take 15 mg by mouth daily. Active OneTouch Verio Flex meter USE TO CHECK GLUCOSE TWICE DAILY 1 Active traZODone (DESYREL) 100 mg tablet TAKE 2 TABLETS BY MOUTH AT BEDTIME FOR SLEEP 0 Active naloxone (NARCAN) 4 mg/spray [place], Non-Aerosol EMERGENCY USE ONLY: Administer 1 spray (4 mg) in one nostril one time. May repeat in alternating nostrils every 2-3 min until responsive or EMS arrives. 2 Each 3 1 Active alendronate (FOSAMAX) 70 mg tablet 1 Active ascorbic acid, vitamin C, (VITAMIN C) 500 mg tablet Take 1,000 mg by mouth daily. Active cyanocobalamin (VITAMIN B-12) 500 mcg tablet Take 500 mcg by mouth daily. Active Cholecalcifero l, Vitamin D3, 50 mcg (2,000 unit) Capsule Take by mouth. A ctive cholecalcifero l, vitamin D3, 5,000 unit Take 400 Units by mouth daily. Active calcium as carbonate (OS-QUYNH) 1,250 mg (500 mg elemental) tablet Take 1 Tablet by mouth daily. Active cetirizine (ZyrTEC) 10 mg tablet Take 10 mg by mouth 1 time daily as needed. Active cyclobenzaprin e (FLEXERIL) 10 mg tablet TAKE 1 TABLET BY MOUTH TWICE DAILY NEEDED FOR MUSCLE SPASM 2 Active OneTouch Delica Plus Lancet 33 gauge 2 Active metFORMIN (GLUCOPHAGE) 1,000 mg tablet 1 Active methotrexate (RHEUMATREX) 2.5 mg Tablet TAKE 3 TABLETS BY MOUTH ONCE A WEEK 2 Active metoprolol succinate (TOPROL XL) 25 mg Extended Release 24 hour tablet Take 25 mg by mouth daily. 1 Active Nystop 100,000 unit/gram powder APPLY TOPICALLY TWICE DAILY 1 Active pioglitazone (ACTOS) 30 mg tablet Take 30 mg by mouth daily. 2 Active tiZANidine (ZANAFLEX) 4 mg Tablet Take 4 mg by mouth every 6 hours as needed. 2 Active Paxlovid, EUA, 150 mg x 2- 100 mg oral pack TAKE 1 TABLET OF NIRMATRELVIR AND ONE 100MG RITONAVIR TWICE DAILY FOR 5 DAYS 2 Active traMADoL (ULTRAM) 50 mg tablet Take 50 mg by mouth every 8 hours as needed. 2 Active leflunomide (ARAVA) 10 mg tablet Take 10 mg by mouth daily. 3 Active hydroxychloroq uine (PLAQUENIL) 200 mg tablet Take 200 mg by mouth daily. Active ferrous sulfate 325 mg (65 mg iron) tabletIndicati ons:Chronic anemia Take 1 tablet by mouth BID. 60 Tablet 2 5 Active Active Problems Problem Noted Date Diagnosed Date Type 2 diabetes mellitus without complication Normocytic anemia 01/13/2019 Encounters Date Type Department Care Team Description 08/02/2024 External Device Data STL ABSTRACTION Provider, Abstract 07/25/2024 Refill [facility] - [place] [address] [place] [address] Jackson Mariscal MD Chronic anemia 07/01/2024 Orders Only [facility] [place] [address] [place] [address] Jackson Mariscal MD 06/30/2024 2:15 PM CDT Office Visit [facility] - [place] [address] [place] [address] Jackson Mariscal MD Chronic anemia (Primary Dx) 06/27/2024 Refill [facility] - [place] [address] [place] [address] Jackson Mariscal MD Chronic anemia from Last 3 Months Family History Medical [...] st Contact Info) Description 01/05/2025 2:45 PM CROWN IRONER Office Visit [facility] - [place] [address] [place] [address] Jackson Mariscal MD 9 [facility] [address] [place] [address] Health Maintenance Due Date Last Done Comments DIABETES ANNUAL FOOT EXAM 1964 DIABETES HBA1C Q 6 MONTHS 1964 DIABETES MICROALBUMIN ANNUAL SCREEN 1964 LDL CHOLESTEROL ANNUAL 1964 DTAP/TDAP/TD VACCINES (1 - Tdap) 1965 PNEUMOCOCCAL VACCINE 50+ YEA RS (1 of 2 - PCV) 1965 OSTEOPOROSIS SCREENING 2011 RSV VACCINE (60+ or ) (1 - 1-dose 75+ series) 2021 DIABETES ANNUAL RETINAL EXAM 03/13/2024, 09/05/2022, 02/13/2022, Additional history exists INFLUENZA VACCINE (#1) 2024 , 12/06/2019, 11/29/2018, Additional history exists Colorectal Cancer Screening Discontinued [...] IMMUNOASSAY, COLORECTAL SCREEN Routine 01/05/2019 7:30 AM CROWN IRONER from Last 3 Months or Most Recently Relevant to Health Maintenance Results * BASIC METABOLIC PANEL (06/30/2024 3:58 PM CDT) Blood us Jackson Mariscal MD CHEMISTRY ORDERABLES Final Resu lt * CBC WITH DIFFERENTIAL (06/30/2024 3:57 PM CDT) Blood Jackson Mariscal MD HEMATOLOGY ORDERABLES Final Res ult * VITAMIN B12 AND FOLATE (06/22/2024 12:53 PM CDT) VITAMIN B12 860 200 - 1100 pg/mL [facility] FOLATE, SERUM >24.0 ng/mL [facility] Comment: Reference Range Low: <3.4 Borderline: 3.4-5.4 Normal: >5.4 FASTING:NO FASTING: NO Test Performed at: [facility] [id number] [employer] [place] [address] Coty Adams MD Blood 06/22/2024 12:5 3 PM CDT 06/22/2024 12:56 PM CDT Jackson Mariscal MD CHEMISTRY ORDERABLES Final Resu lt Performing Organization Address [facility] Co de Phone Number [facility] [phone] [facility] [address] [facility] [place] [address] * (ABNORMAL) IRON, TIBC, AND PERCENT SATURATION (06/22/2024 12:53 PM CDT) Pathologist [facility] IRON 147 45 - 160 mcg/dL [facility] TIBC 279 250 - 450 mcg/dL (calc) [facility] IRON % SATURATION 53(H) 16 - 45 % (calc) [facility] Comment: FASTING:NO FASTING: NO Test Performed at: [facility] [address] [employer] [address] Coty Adams MD Blood 06/22/2024 12:5 3 PM CDT 06/22/2024 12:56 PM CDT Jackson Mariscal MD CHEMISTRY ORDERABLES Final Resu lt Performing Organization Address City/[facility] Co de Phone Number [facility] [phone] [facility] [address] * (ABNORMAL) FERRITIN (06/22/2024 12:53 PM CDT) Pathologist [facility] FERRITIN 456(H) 16 - 288 ng/mL [facility] Comment: Test Performed at: [address] [address] Coty Adams MD Blood 06/22/2024 12:5 3 PM CDT 06/22/2024 12:56 PM CDT Jackson Mariscal MD CHEMISTRY ORDERABLES Final Resu lt [facility] [phone] [facility] [employer] [address] * OCCULT BLOOD IMMUNOASSAY, COLORECTAL SCREEN (01/05/2019 7:30 AM CROWN IRONER) Pathologist [facility] FECAL GLOBIN [employer] [facility] Comment: FECAL GLOBIN BY IMMUNOCHEMISTRY MICRO NUMBER: [id number] TEST STATUS: FINAL SPECIMEN SOURCE: INSURE (TM) FOBT TEST CARD SPECIMEN QUALITY: ADEQUATE Fecal Globin: Not Detected SPLIT 01/03/2019 FROM [id number] Test Performed at: [facility] [address] Jonatan Anderson D.O., MPH 01/05/2019 7:30 AM CROWN IRONER Jackson Mariscal MD BODY FLUIDS AND STOOLS Edited R esult - Final [employer] [facility] [address] [place] [address] from Last 3 Months or Most Recently Relevant to Health Maintenance [facility] Address: [facility] [address] [place] [address] Care Teams Behavioral Assistant Relationship Specialty Start Date End Date Sid Wright DO [address] [facility] [address] [place] [address] PCP - General Internal Medicine 12/14/23
--- OUTSIDE RECORDS SUMMARY | 2024-08-29 19:25 | XMS_ITS ---
Author Name Auto Generated, Auto Generated Organization [facility] Address [address] [place] [address] Phone [phone] Care Team Providers Care Residential Substance Abuse Counselor Name Role Phone Jai Galeano Unavailable [phone] Mel Doty Unavailable [phone] Bianka Cobos Unavailable Esther Hollis Unavailable Functional Status No Results [...]
--- OUTSIDE RECORDS SUMMARY | 2024-08-29 19:25 | XMS_ITS ---
Author Name Auto Generated, Auto Generated Organization [facility] Address [address] [place] [address] Phone [phone] Care Team Providers Care Copra Sampler Name Role Phone Jai Galeano Unavailable Mel Doty Unavailable [phone] Bianka Cobos Unavailable Esther Hollis Unavailable [phone] Functional Status No Results Mental Status No [...]
[2024-08-29 19:30] VITALS: BP 135/76; PULSE 100; RESP 14; TEMP 36.8; O2SAT 98
--- OUTSIDE RECORDS SUMMARY | 2024-08-29 20:54 | XMS_ITS | Clinical Summary ---
Author Organization [facility] Address [address] [place] [address] Care Team Providers Care Pyroglazer Name Role Phone Jamey Barrera MD Primary Care Provider [phone] Allergies Active Allergy Reactions Criticality Noted Date [...] place to sleep or slept in a senior care (including now)? No 03/10/2022 Comments No Sex and Gender Information Value Date Recorded Sex Assigned at Female 04/07/2024 11:55 AM PEOPLESOFT BUSINESS ANALYST Legal Sex Female 12:19 PM PEOPLESOFT BUSINESS ANALYST Gender Identity Not on file Sexual Orientation Not on file Last Filed Vital Signs Vital Sign Reading Time Taken Comments Blood Pressure 113/59 04/07/2024 11:45 AM PEOPLESOFT BUSINESS ANALYST Pulse 71 04/07/2024 11:45 AM PEOPLESOFT BUSINESS ANALYST Temperature 37 C (98.6 F) 04/07/2024 11:45 AM PEOPLESOFT BUSINESS ANALYST Respiratory Rate 19 04/07/2024 11:45 AM PEOPLESOFT BUSINESS ANALYST Oxygen Saturation 98% 04/07/2024 11:45 AM PEOPLESOFT BUSINESS ANALYST Inhaled Oxygen Concentration - - Weight 97.5 kg (215 lb) 04/07/2024 11:45 AM PEOPLESOFT BUSINESS ANALYST Height 160 cm (5' 3) 04/07/2024 11:45 AM PEOPLESOFT BUSINESS ANALYST Body Mass Index 38.09 04/07/2024 11:45 AM PEOPLESOFT BUSINESS ANALYST Plan of Treatment Health Maintenance Due Date [...] 7:36 PM 03/17/2022 7:45 PM Care Teams Pyroglazer Relationship Specialty Start Date End Date Jamey Barrera MD PCP - General INTERNAL MEDICINE 03/12/22
--- OUTSIDE RECORDS SUMMARY | 2024-08-29 20:54 | XMS_ITS ---
Author Name Auto Generated, Auto Generated Organization [facility] Address [address] [place] [address] Phone [phone] Care Team Providers Care Stock Clipper Name Role Phone Jai Galeano Unavailable Mel Doty Unavailable [phone] Bianka Cobos Unavailable Esther Hollis Unavailable Functional [...]
--- OUTSIDE RECORDS SUMMARY | 2024-08-29 20:54 | XMS_ITS ---
Author Name Auto Generated, Auto Generated Organization [facility] Address [address] [place] [address] Phone [phone] Care Team Providers Care Transportation Technician Name Role Phone Jai Galeano Unavailable Mel Doty Unavailable [phone] Bianka Cobos Unavailable [phone] Esther Hollis Unavailable Functional Status No [...]
--- OUTSIDE RECORDS SUMMARY | 2024-08-29 20:54 | XMS_ITS | Clinical Summary ---
Author Organization [facility] Address [address] [place] [place] [address] Care Team Providers Care Claims Clerk Name Role Phone Nura Acosta MD Primary Care Provider [phone] Source Comments [facility],non-owned Affiliates and Associated Physician Practices is amultiple site organization consisting of ambulatory clinics and hospital sitesin [place], [place], [place] and [place]. This disclosure is being madepursuant to the Care Everywhere program and may not contain all information available regarding this patient. Last updated 17.[facility] Allergies Active Allergy Reactions Criticality Noted Date [...] tablet by mouth once daily 0 Active Neptune.ioTOUCH VERIO test strip USE 1 STRIP TO [...] 40 MG capsule 3 Active nystatin (Mycostatin) 315442 UNIT/GM powder APPLY POWDER TOPICALLY THREE TIMES [...] 4 times daily 3 Active HYDROcodone-farnaz taminophen ([place]) 7.5-325 MG tablet Take 1 (one) tablet [...] on file Legal Sex Female 5:21 PM DRUG WORKER Gender Identity Not on file Sexual Orientation Not on file Last Filed Vital Signs Vital Sign Reading Time Taken Comments Blood Pressure 118/60 03/14/2021 10:58 AM DRUG WORKER Pulse 74 03/14/2021 10:58 AM DRUG WORKER Temperature 36.4 C (97.6 F) 03/14/2021 10:58 AM DRUG WORKER Respiratory Rate 15 11/19/2016 11:30 AM CDT Oxygen Saturation 98% 03/14/2021 10:58 AM DRUG WORKER Inhaled Oxygen Concentration - - Weight 97.1 kg (214 lb) 04/17/2021 3:20 PM DRUG WORKER Height 160 cm (5' 3) 04/17/2021 3:20 PM DRUG WORKER Body Mass Index 37.91 04/17/2021 3:20 PM DRUG WORKER Plan of Treatment Health Maintenance Due Date [...] Insurance AET AETNA MEDICARE ADV Care Teams Claims Clerk Relationship Specialty Start Date End Date Nura Acosta MD [address] [place] [address] PCP - General Family Medicine 03/13/23
--- OUTSIDE RECORDS SUMMARY | 2024-08-29 20:54 | XMS_ITS | Clinical Summary ---
Author Organization [facility] Address [address] [place] [address] Phone Care Team Providers Care Receiver Setter Name Role Phone Sid Wright DO Primary Care Provider [phone] Allergies Active Allergy Reactions Criticality Noted Date [...] pain 0 Active Lancets (OneTouch Delica Plus [id number]) misc USE 1 TO CHECK GLUCOSE THREE [...] anxiety 0 Active Blood Glucose Monitoring Suppl ([employer] Verio Flex System) w/Device kit USE TO CHECK GLUCOSE TWICE DAILY 1 Active TradoriaTouch Verio test strip USE STRIP TO CHECK [...] MOUTH ONCE A WEEK 2 Active Nystop 763395 UNIT/GM powder Apply topically 2 (two) times [...] 2019 Insurance AETNA MEDICARE ADVANTAGE Care Teams Receiver Setter Relationship Specialty Start Date End Date Sid Wright DO [address] [place] [address] PCP - General Internal Medicine 12/15/19
--- OUTSIDE RECORDS SUMMARY | 2024-08-29 20:54 | XMS_ITS | Clinical Summary ---
Author Organization [facility] Jose Conner Address [address] [place] [address] Care Team Providers Care Asset Protection Detective Name Role Phone Sid Wright April CEDENO Primary Care Provider Allergies Active Allergy Reactions Criticality Noted Date Comments Ciprofloxacin Rash Low 12/14/2023 Erythromycin Diarrhea,Hives High 11/27/2015 Erythromycin Base Hives High 01/13/2019 Penicillins Rash Medium 11/27/2015 Medications pregabalin (LYRICA) 100 mg Capsule Take 100 mg by mouth every 12 hours. Active levothyroxine 100 mcg tablet Take 100 mcg by mouth daily baggage clerk. Active losartan (COZAAR) 100 mg tablet Take [...] SLEEP 0 Active naloxone (NARCAN) 4 mg/spray [place], Non-Aerosol EMERGENCY USE ONLY: Administer 1 spray [...] Data STL ABSTRACTION Provider, Abstract 07/25/2024 Refill [facility] - [place] [address] [place] [address] Jackson Mariscal MD Chronic anemia 07/01/2024 Orders Only [facility] - [place] [address] [place] [address] Jackson Mariscal MD 06/30/2024 2:15 PM CDT Office Visit [facility] - [place] [address] [place] [address] Jackson Mariscal MD Chronic anemia (Primary Dx) 06/27/2024 Refill [facility] - [place] [address] [place] [address] Jackson Mariscal MD Chronic anemia [...] st Contact Info) Description 01/05/2025 2:45 PM CONSERVATION POLICY ANALYST Office Visit [facility] - [place] [address] [place] [address] Jackson Mariscal MD [address] [facility] [address] [place] [address] Health Maintenance Due Date Last [...] IMMUNOASSAY, COLORECTAL SCREEN Routine 01/05/2019 7:30 AM CONSERVATION POLICY ANALYST from Last 3 Months or Most Recently [...] >5.4 FASTING:NO FASTING: NO Test Performed at: [facility] [address] [place] [address] Coty Adams MD Blood 06/22/2024 12:5 3 PM CDT 06/22/2024 12:56 PM CDT Jackson Mariscal MD CHEMISTRY ORDERABLES Final Resu lt Performing Organization Address [facility] Co de Phone Number [facility] [phone] [facility] [address] [facility] [place] [address] * (ABNORMAL) IRON, TIBC, AND PERCENT SATURATION (06/22/2024 12:53 PM CDT) Pathologist [facility] IRON 147 45 - 160 mcg/dL [facility] TIBC 279 250 - 450 mcg/dL (calc) [facility] IRON % SATURATION 53(H) 16 - 45 % (calc) [facility] Comment: FASTING:NO FASTING: NO Test Performed at: [facility] [address] [address] Coty Adams MD Blood 06/22/2024 12:5 3 PM CDT 06/22/2024 12:56 PM CDT Jackson Mariscal MD CHEMISTRY ORDERABLES Final Resu lt Performing Organization Address City/[facility] Co de Phone Number [facility] [phone] [facility] [address] * (ABNORMAL) FERRITIN (06/22/2024 12:53 PM CDT) Pathologist [facility] FERRITIN 456(H) 16 - 288 ng/mL [facility] Comment: Test Performed at: [address] [address] Coty Adams MD Blood 06/22/2024 12:5 3 PM CDT 06/22/2024 12:56 PM CDT Jackson Mariscal MD CHEMISTRY ORDERABLES Final Resu lt [facility] [phone] [facility] [address] * OCCULT BLOOD IMMUNOASSAY, COLORECTAL SCREEN (01/05/2019 7:30 AM CONSERVATION POLICY ANALYST) Pathologist [facility] FECAL GLOBIN [email or web address] Comment: FECAL GLOBIN BY IMMUNOCHEMISTRY MICRO NUMBER: [id number] TEST STATUS: FINAL SPECIMEN SOURCE: INSURE (TM) FOBT TEST CARD SPECIMEN QUALITY: ADEQUATE Fecal Globin: Not Detected SPLIT 01/03/2019 FROM [id number] Test Performed at: [facility] [address] Jonatan Anderson D.O., MPH 01/05/2019 7:30 AM CONSERVATION POLICY ANALYST Jackson Mariscal MD BODY FLUIDS AND STOOLS Edited R esult - Final [email or web address] [address] [place] [address] from Last 3 Months or Most Recently Relevant to Health Maintenance [facility] Address: [facility] [id number] [place] [address] Care Teams Asset Protection Detective Relationship Specialty Start Date End Date Sdi Wright DO [address] [facility] [address] [place] [address] PCP - General Internal Medicine 12/14/23
--- NOTE | 2024-08-29 21:03 | ED.LOWEXIN ---
HPI - Extremity Injury (Lower) General Chief Complaint: Extremity Injury, Lower Stated Complaint: hip injury Time Seen by Provider: 08/29/24 20:42 History of Present Illness HPI Narrative: Pt was playing slots at [employer] and slot machine tipped over and landed on left upper thoght and hip. Pt complains of pain to upper thigh and hip. Pt denies other injury. Related Data Home Medications ?Medication ?Instructions ?Recorded ?Confirmed ?Last Taken ?Type ferrous sulfate 325 mg (65 mg 325 mg PO TID 10/25/19 08/12/24 09/09/20 History iron) tablet ascorbic acid (vitamin C) 1,000 mg 1 g PO BID 08/13/22 08/12/24 Unknown History capsule aspirin 81 mg tablet 81 mg PO DAILY 08/13/22 08/12/24 11/25/23 History cetirizine 10 mg tablet 10 mg PO DAILY PRN Allergy Symptoms 08/13/22 08/12/24 Unknown History nystatin 100,000 unit/gram topical 1 applic topical BID PRN Rash 08/13/22 08/12/24 Unknown History powder cyanocobalamin (vitamin B-12) 500 500 mcg PO 3XW 12/15/22 08/12/24 Unknown History mcg tablet magnesium oxide 400 mg PO DAILY 12/31/22 08/12/24 Unknown History tizanidine 4 mg capsule (Zanaflex) 4 mg PO TID PRN 08/12/24 08/12/24 Unknown History Allergies Allergy/AdvReac Type Severity Reaction Status Date / Time Penicillins Allergy Unknown Rash Verified 08/29/24 20:38 cephalexin Allergy Rash Verified 08/29/24 20:38 erythromycin base AdvReac Unknown Diarrhea Verified 08/29/24 20:38 Review of Systems Review of Systems: All systems reviewed & are unremarkable except as noted in HPI and below PMFSH Past Medical History Medical History Chronic sphenoidal sinusitis Chronic maxillary sinusitis Sinus headache BMI 31.0-31.9,adult Hip pain, bilateral Arthritis of left knee Degenerative joint disease (DJD) of lumbar spine COVID-19 Bilateral hand pain Renal insufficiency Lumbar and sacral arthritis Osteoarthritis of left knee Screening for breast cancer Mass of both axillae Bilateral shoulder region arthritis Bilateral shoulder pain Hemoglobin A1c less than 7.0% 6.9 on 04/05/19 BMI 38.0-38.9,adult Stroke Hypertension Fibromyalgia (~2009) Gastric ulcer without hemorrhage or perforation Adhesive capsulitis of right shoulder Generalized osteoarthritis of multiple sites (~2009) Seronegative rheumatoid arthritis of both hands (~2014) Anemia Anxiety Arthritis Depression Diabetes a1c=6.9 (04/05/19) Surgical History Surgical History History of knee surgery 12/2013 Dr. Peña Hx of cholecystectomy History of carpal tunnel release H/O cataract extraction H/O elbow surgery H/O: hysterectomy History of hip replacement 03/2018 Family History Family History Father Hypertension Family history of diabetes mellitus in first degree relative Diabetes mellitus Carcinoma of colon Mother Hypertension Carcinoma of colon Sibling Carcinoma of colon Grandparent Cerebrovascular accident Other Family history of cardiovascular disease Family history of malignant neoplasm Social History Social History Smoking packs per day: 0.25 Smoking cigarettes per day: 5.0 Years smoked: 15 Smoking pack-years: 3.75 Smoking status: Former smoker Tobacco type: cigarettes Second hand tobacco smoke exposure: Yes Smoking end date: 08/23/84 Alcohol intake: current Alcohol use details: occasional Substance use: never Substance use type: does not use Current Housing: Decline to Answer Concerned About Future Housing: Decline to Answer Difficulty Paying Gas/Electric Bills: Decline to Answer Difficulty Paying for Meds: Decline to Answer Currently Unemployed: Decline to Answer Education: Decline to Answer Difficulty w/ Childcare or Family Care: Decline to Answer Living arrangements: alone Additional living arrangements comments: Occupation/Education: 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[employer] Gender identity (if verbalized by the patient): Female Sexual Orientation (if Verbalized by the Patient): Straight or Heterosexual Spiritual care concerns: No Exam Const: General: healthy appearing and no acute distress Nutritional Appearance: well nourished Orientation/consciousness: patient oriented x3 Limitations: no limitations HENMT: Head: normal to inspection Chest: Chest palpation & inspection: normal inspection of the chest Resp: Effort & Inspection: normal respiratory effort Auscultation: clear to auscultation bilaterally Cardio: Rate: regular rate Rhythm: regular rhythm GI: GI Palp: Yes Soft to palpation and No Tenderness to palpation present (GI) Auscultation: normal bowel sounds Skin: General skin exam: normal color Rashes: no rashes Wounds: no wounds Neuro: General: patient oriented x3, moves all extremities and no focal motor deficits Speech: normal speech Extrem: General: normal to inspection Other: tender upper femur and hip on left but good rom left hip, no rotation or shortening Psych: Mental Status: mental status grossly normal Affect: normal affect Attitude: cooperative Course Vital Signs Vital signs: Vital Signs Temperature 98.3 F 08/29/24 19:30 Pulse Rate 100 08/29/24 19:30 Respiratory Rate 14 08/29/24 19:30 Blood Pressure 135/76 08/29/24 19:30 Pulse Oximetry 98 08/29/24 19:30 Temperature 98.3 F 08/29/24 19:30 Pulse Rate 100 08/29/24 19:30 Respiratory Rate 14 08/29/24 19:30 Blood Pressure 135/76 08/29/24 19:30 Pulse Oximetry 98 08/29/24 19:30 MDM - Extremity Injury (Lower) MDM Narrative Medical decision making narrative: Pt had slot machime fall on her while seated at [facility]. Pt complains of hip and thigh pain. will get x ray to rule out fx and give shot of toradol for pain. Discharge Plan Discharge Clinical Impression: Contusion Patient Disposition: Home Condition: Improved Instructions: Antibiotic Form Patient Language: French Prescriptions: New hydrocodone-acetaminophen 5-325 mg tablet 1 tablet PO Q6H PRN (Reason: pain) Qty: 10 0RF No Action nystatin 100,000 unit/gram powder 1 applic topical BID PRN (Reason: Rash) cetirizine 10 mg Tablet 10 mg PO DAILY PRN (Reason: Allergy Symptoms) aspirin 81 mg Tablet 81 mg PO DAILY ascorbic acid (vitamin C) 1,000 mg Capsule 1 g PO BID cyanocobalamin (vitamin B-12) 500 mcg tablet 500 mcg PO 3XW Rx Instructions: 500 mcg orally three tabs weekly; magnesium oxide 400 mg magnesium capsule 400 mg PO DAILY Rinvoq 15 mg tablet extended release 24 hr 15 mg PO DAILY Qty: 30 11RF (DME) [employer] Tiera 2 Sensor Kit See Rx Instructions .Route Qty: 1 4RF Rx Instructions: As directed azelastine 137 mcg (0.1 %) spray,non-aerosol 1 spray intranasal Q12H 30 Days Qty: 30 2RF Rx Instructions: administer into each nostril fluticasone propionate 50 mcg/actuation spray,suspension 1 spray intranasal DAILY 30 Days Qty: 16 2RF Rx Instructions: administer into each nostril levothyroxine [Euthyrox] 100 mcg tablet 100 mcg PO DAILY Qty: 90 3RF Patient Comments: IN AM Rx Instructions: Take 1 tablet by mouth once daily cyclobenzaprine 10 mg tablet 10 mg PO TID PRN (Reason: muscle spasm) Qty: 90 1RF tizanidine [Zanaflex] 4 mg capsule 4 mg PO TID PRN celecoxib [Celebrex] 200 mg capsule 200 mg PO DAILY Qty: 30 0RF ferrous sulfate 325 mg (65 mg iron) tablet 325 mg PO TID cholecalciferol (vitamin D3) 50 mcg (2,000 unit) tablet 50 mcg PO DAILY Qty: 90 1RF calcium carbonate 500 mg calcium (1,250 mg) tablet 500 mg PO DAILY Qty: 90 1RF (DME) [employer] Tiera 2 [place] Replaced By [facility] See Rx Instructions .Route Qty: 1 0RF Rx Instructions: As directed leflunomide 10 mg tablet 10 mg PO DAILY Qty: 90 1RF atorvastatin 10 mg tablet 10 mg PO DAILY Qty: 100 1RF pioglitazone 30 mg tablet 30 mg PO DAILY Qty: 100 1RF Patient Comments: QAM potassium chloride 20 mEq tablet extended release 20 meq PO BID Qty: 180 2RF trazodone 100 mg tablet 100 mg PO .COMPLEX PRN (Reason: sleep) Qty: 180 1RF Rx Instructions: 100 mg orally Take 1-2 PO QHS PRN sleep PRN; ondansetron HCl 4 mg tablet 4 mg PO Q6H PRN (Reason: Nausea) Qty: 60 1RF metformin 1,000 mg tablet See Rx Instructions .ROUTE .COMPLEX Qty: 180 0RF Dose Instruction: Take 1 tablet by mouth twice daily with food Rx Instructions: Take 1 tablet by mouth twice daily with food losartan 100 mg tablet 100 mg PO DAILY Qty: 100 3RF Patient Comments: IN AM Rx Instructions: Take 1 tablet by mouth once daily pregabalin [Lyrica] 100 mg capsule 100 mg PO BID Qty: 180 1RF furosemide [Lasix] 40 mg tablet 40 mg PO DAILY Qty: 90 1RF Patient Comments: IN AM alprazolam [Xanax] 0.5 mg tablet 0.5 mg PO BID PRN (Reason: Anxiety) Qty: 60 0RF folic acid 1 mg tablet 1 mg PO DAILY Qty: 90 1RF omeprazole 40 mg capsule,delayed release(DR/EC) 40 mg PO DAILY Qty: 90 1RF Ozempic 2 mg/dose (8 mg/3 mL) pen injector See Rx Instructions .ROUTE .COMPLEX Qty: 3 5RF Dose Instruction: INJECT 2 MG SUBCUTANEOUSLY ONCE A WEEK Patient Comments: SUNDAYS Rx Instructions: INJECT 2 MG SUBCUTANEOUSLY ONCE A WEEK metoprolol succinate 50 mg tablet extended release 24 hr See Rx Instructions .ROUTE .COMPLEX Qty: 30 5RF Dose Instruction: Take 1 tablet by mouth once daily Rx Instructions: Take 1 tablet by mouth once daily lubiprostone 8 mcg capsule 8 mcg PO BID Qty: 60 3RF hydrocodone-acetaminophen 5-325 mg tablet 1 tablet PO TID PRN (Reason: Pain) Qty: 60 0RF duloxetine 60 mg capsule,delayed release(DR/EC) See Rx Instructions .ROUTE .COMPLEX Qty: 60 5RF Dose Instruction: Take 1 capsule by mouth twice daily Rx Instructions: Take 1 capsule by mouth twice daily alendronate 70 mg tablet 70 mg PO WEEKLY Qty: 12 1RF Patient Comments: TAKES ON SUNDAYS Rx Instructions: Sundays Follow-up/Referrals: Gian Weaver, BOTTOM HOOP DRIVER [Primary Care Provider] -
[2024-08-29] MEDS: KETOROLAC 30 MG/ML VIAL (*BKC) IM (21:21)
== END 2024-08-29 21:44 | disposition home or self-care (01) ==
PROVIDERS: Emergency Provider Emergency Medicine; PCP Nurse Practitioner
DX: S70.12XA Contusion of left thigh, initial encounter (principal); E11.9 Type 2 diabetes mellitus without complications; J32.3 Chronic sphenoidal sinusitis; J32.0 Chronic maxillary sinusitis; N28.9 Disorder of kidney and ureter, unspecified; M19.012 Primary osteoarthritis, left shoulder; M19.011 Primary osteoarthritis, right shoulder; M79.7 Fibromyalgia; M17.12 Unilateral primary osteoarthritis, left knee; F41.9 Anxiety disorder, unspecified; F32.A Depression, unspecified; Z96.649 Presence of unspecified artificial hip joint; Z86.73 Personal history of transient ischemic attack (TIA), and cerebral infarction without residual deficits; Z86.16 Personal history of COVID-19; Z86.2 Personal history of diseases of the blood and blood-forming organs and certain disorders involving the immune mechanism; Z87.891 Personal history of nicotine dependence; Z90.49 Acquired absence of other specified parts of digestive tract; Z90.710 Acquired absence of both cervix and uterus; Z98.49 Cataract extraction status, unspecified eye; Z79.82 Long term (current) use of aspirin; Z79.899 Other long term (current) drug therapy; Z79.84 Long term (current) use of oral hypoglycemic drugs; Z79.85 Long-term (current) use of injectable non-insulin antidiabetic drugs; Z79.622 Long term (current) use of Janus kinase inhibitor; W20.8XXA Other cause of strike by thrown, projected or falling object, initial encounter
CPT/HCPCS: 73502; 96372; 99283; J1885

== ENCOUNTER 2024-09-10 14:49 | Emergency (ER) | payer MEDICARE, SELFPAY ==
--- NOTE | ~2024-09-10 | XR_ITS ---
Cervical Spine: AP, lateral, open-mouth views Clinical History: Pain Findings: The normal lordotic curve is maintained. The vertebral bodies and posterior elements appea r intact. The intervertebral disc spaces are well maintained. Moderate facet joint degenerative bruner ges are present throughout the cervical spine. Pre-vertebral soft tissues are unremarkable. Impression: Moderate facet arthropathy throughout the cervical spine. Reviewed, dictated and finalized at location . Impression: Moderate facet arthropathy throughout the cervical spine.
--- NOTE | ~2024-09-10 | XR_ITS ---
Right Shoulder Technique: AP and scapular Y views were obtained. Clinical History: Pain Findings: No fracture or dislocation is seen. Osseous alignment is anatomic. The glenohumeral and acr omioclavicular joints demonstrate moderate to advanced degenerative change. Soft tissues are unremark able. Impression: Moderate to advanced degenerative changes, as above. Reviewed, dictated and finalized at location . Impression: Moderate to advanced degenerative changes, as above.
--- NOTE | ~2024-09-10 | XR_ITS ---
Left Shoulder Technique: AP and scapular Y views were obtained. Clinical History: Pain Findings: No fracture or dislocation is seen. Osseous alignment is anatomic. The glenohumeral joint d emonstrates severe degenerative change with joint space narrowing and sclerosis and inferomedial zoraida ral head osteophyte. There is [id number] AC joint degenerative change.. Soft tissues are unrema rkable. Impression: Degenerative changes, as above, worst at the glenohumeral joint. Reviewed, dictated and finalized at location M. Impression: Degenerative changes, as above, worst at the glenohumeral joint.
--- OUTSIDE RECORDS SUMMARY | 2024-09-10 14:51 | XMS_ITS | Clinical Summary ---
Author Organization [facility] Myrna shelby Address [address] [place] [address] Phone Care Team Providers Care Hide Mill Man Name Role Phone Sid Wright DO Primary Care Provider [phone] Allergies Active Allergy Reactions Criticality Noted Date [...] pain 0 Active Lancets (OneTouch Delica Plus [id number]) misc USE 1 TO CHECK GLUCOSE THREE [...] anxiety 0 Active Blood Glucose Monitoring Suppl (Apptio Verio Flex System) w/Device kit USE TO CHECK GLUCOSE TWICE DAILY 1 Active Mass RelevanceTouch Verio test strip USE STRIP TO CHECK [...] MOUTH ONCE A WEEK 2 Active Nystop 975491 UNIT/GM powder Apply topically 2 (two) times [...] 2019 Insurance [employer] MEDICARE ADVANTAGE Care Teams Hide Mill Man Relationship Specialty Start Date End Date Sid Wright DO [address] [place] [address] PCP - General Internal Medicine 12/15/19
--- OUTSIDE RECORDS SUMMARY | 2024-09-10 14:51 | XMS_ITS ---
Author Name Auto Generated, Auto Generated Organization [facility] Address [address] [place] [address] Phone [phone] Care Team Providers Care Warehouse Man Name Role Phone Jai Galeano Unavailable Mel Doty Unavailable [phone] Bianka Cobos Unavailable [phone] Esther Hollis Unavailable Functional Status No Results [...]
--- OUTSIDE RECORDS SUMMARY | 2024-09-10 14:51 | XMS_ITS | Clinical Summary ---
Author Organization [facility] Jose Conner Address [address] [place] [address] Care Team Providers Care C Wpf Developer Name Role Phone Sid Wright April CEDENO Primary Care Provider Allergies Active Allergy Reactions Criticality Noted Date Comments Ciprofloxacin Rash Low 12/14/2023 Erythromycin Diarrhea,Hives High 11/27/2015 Erythromycin Base Hives High 01/13/2019 Penicillins Rash Medium 11/27/2015 Medications pregabalin (LYRICA) 100 mg Capsule Take 100 mg by mouth every 12 hours. Active levothyroxine 100 mcg tablet Take 100 mcg by mouth daily bill adjuster. Active losartan (COZAAR) 100 mg tablet Take [...] SLEEP 0 Active naloxone (NARCAN) 4 mg/spray [place], Non-Aerosol EMERGENCY USE ONLY: Administer 1 spray [...] Data STL ABSTRACTION Provider, Abstract 07/25/2024 Refill [facility] - [place] [address] [place] [address] Jackson Mariscal MD Chronic anemia 07/01/2024 Orders Only [facility] - [place] [address] [place] [address] Jackson Mariscal MD 06/30/2024 2:15 PM CDT Office Visit [facility] - [place] [address] [place] [address] Jackson Mariscal MD Chronic anemia (Primary Dx) 06/27/2024 Refill [facility] - [place] [address] [place] [address] Jackson Mariscal MD Chronic anemia [...] st Contact Info) Description 01/05/2025 2:45 PM FILER HELPER Office Visit [facility] - [place] [address] [place] [address] Jackson Mariscal MD [address] [facility] [address] [place] [address] Health Maintenance Due Date Last [...] IMMUNOASSAY, COLORECTAL SCREEN Routine 01/05/2019 7:30 AM FILER HELPER from Last 3 Months or Most Recently Relevant to Health Maintenance Results * BASIC METABOLIC PANEL (06/30/2024 3:58 PM CDT) Blood us Jackson Mariscal MD CHEMISTRY ORDERABLES Final Resu lt * CBC WITH DIFFERENTIAL (06/30/2024 3:57 PM CDT) Blood Jackson Marsical MD HEMATOLOGY ORDERABLES Final Res ult * VITAMIN B12 AND FOLATE (06/22/2024 12:53 PM CDT) VITAMIN B12 860 200 - 1100 pg/mL [facility] FOLATE, SERUM >24.0 ng/mL [facility] Comment: Reference Range Low: <3.4 Borderline: 3.4-5.4 Normal: >5.4 FASTING:NO FASTING: NO Test Performed at: [facility] [id number] [address] [place] [address] Coty Adams MD Blood 06/22/2024 12:5 3 PM CDT 06/22/2024 12:56 PM CDT Jackson Mariscal MD CHEMISTRY ORDERABLES Final Resu lt Performing Organization Address [facility] Co de Phone Number [facility] [phone] [facility] [address] [place] [address] * (ABNORMAL) IRON, TIBC, AND PERCENT SATURATION (06/22/2024 12:53 PM CDT) Pathologist [facility] IRON 147 45 - 160 mcg/dL [facility] TIBC 279 250 - 450 mcg/dL (calc) [facility] IRON % SATURATION 53(H) 16 - 45 % (calc) [facility] Comment: FASTING:NO FASTING: NO Test Performed at: [facility] [address] [address] Coty Adams MD Blood 06/22/2024 12:5 3 PM CDT 06/22/2024 12:56 PM CDT Jackson Mariscal MD CHEMISTRY ORDERABLES Final Resu lt Performing Organization Address City/[facility] Co de Phone Number [facility] [phone] [facility] [address] * (ABNORMAL) FERRITIN (06/22/2024 12:53 PM CDT) Pathologist [facility] FERRITIN 456(H) 16 - 288 ng/mL [facility] Comment: Test Performed at: [address] [address] Coty Adams MD Blood 06/22/2024 12:5 3 PM CDT 06/22/2024 12:56 PM CDT Jackson Mariscal MD CHEMISTRY ORDERABLES Final Resu lt [facility] [phone] [facility] [address] * OCCULT BLOOD IMMUNOASSAY, COLORECTAL SCREEN (01/05/2019 7:30 AM FILER HELPER) Pathologist [facility] FECAL GLOBIN [employer] [facility] Comment: FECAL GLOBIN BY IMMUNOCHEMISTRY MICRO NUMBER: [id number] TEST STATUS: FINAL SPECIMEN SOURCE: INSURE (TM) FOBT TEST CARD SPECIMEN QUALITY: ADEQUATE Fecal Globin: Not Detected SPLIT 01/03/2019 FROM [id number] Test Performed at: [employer] [facility] [employer] [address] Jonatan Anderson D.O., MPH 01/05/2019 7:30 AM FILER HELPER Jackson Mariscal MD BODY FLUIDS AND STOOLS Edited R esult - Final [employer] [facility] [address] [place] [address] from Last 3 Months or Most Recently Relevant to Health Maintenance [facility] Care Teams C Wpf Developer Relationship Specialty Start Date End Date Sid Wright DO [address] [facility] [address] [place] [address] PCP - General Internal Medicine 12/14/23
--- OUTSIDE RECORDS SUMMARY | 2024-09-10 14:51 | XMS_ITS | Clinical Summary ---
Author Organization [facility] Address [address] [facility] [place] [address] Care Team Providers Care Wheel Buffer Name Role Phone Nura Acosta MD Primary Care Provider [phone] Source Comments [facility],non-owned Affiliates and Associated Physician Practices is amultiple site organization consisting of ambulatory clinics and hospital sitesin [place], [place], [place] and [place]. This disclosure is being madepursuant to the Care Everywhere program and may not contain all information available regarding this patient. Last updated 17.[facility] Allergies Active Allergy Reactions Criticality Noted Date [...] tablet by mouth once daily 0 Active [employer] DiagnosticsTOUCH VERIO test strip USE 1 STRIP TO [...] 40 MG capsule 3 Active nystatin (Mycostatin) 275754 UNIT/GM powder APPLY POWDER TOPICALLY THREE TIMES [...] 4 times daily 3 Active HYDROcodone-farnaz taminophen (Evergreen) 7.5-325 MG tablet Take 1 (one) tablet [...] on file Legal Sex Female 5:21 PM ASSISTANT AUTO CENTER MANAGER Gender Identity Not on file Sexual Orientation Not on file Last Filed Vital Signs Vital Sign Reading Time Taken Comments Blood Pressure 118/60 03/14/2021 10:58 AM ASSISTANT AUTO CENTER MANAGER Pulse 74 03/14/2021 10:58 AM ASSISTANT AUTO CENTER MANAGER Temperature 36.4 C (97.6 F) 03/14/2021 10:58 AM ASSISTANT AUTO CENTER MANAGER Respiratory Rate 15 11/19/2016 11:30 AM CDT Oxygen Saturation 98% 03/14/2021 10:58 AM ASSISTANT AUTO CENTER MANAGER Inhaled Oxygen Concentration - - Weight 97.1 kg (214 lb) 04/17/2021 3:20 PM ASSISTANT AUTO CENTER MANAGER Height 160 cm (5' 3) 04/17/2021 3:20 PM ASSISTANT AUTO CENTER MANAGER Body Mass Index 37.91 04/17/2021 3:20 PM ASSISTANT AUTO CENTER MANAGER Plan of Treatment Health Maintenance Due Date [...] MEDICARE AWV CALENDAR YEAR 2024 INFLUENZA VACCINE (#1) 2024 , 12/06/2019, 12/06/2019, Additional history exists DIABETES RETINOPATHY [...] Insurance AET AETNA MEDICARE ADV Care Teams Wheel Buffer Relationship Specialty Start Date End Date Nura Acosta MD [address] [place] [address] PCP - General Family Medicine 03/13/23
--- OUTSIDE RECORDS SUMMARY | 2024-09-10 14:51 | XMS_ITS ---
Author Name Auto Generated, Auto Generated Organization [facility] Address [address] [place] [address] Phone [phone] Care Team Providers Care Tailman Name Role Phone Jai Galenao Unavailable Mel Doty Unavailable [phone] Bianka Cobos Unavailable Esther Hollis Unavailable [phone] Functional Status No Results Mental Status No [...]
--- OUTSIDE RECORDS SUMMARY | 2024-09-10 14:51 | XMS_ITS | Continuity of Care Document ---
Author Organization [facility] Address [address] [facility] [address] [place] [address] Insurance Providers Payer Plan Claims Address Claims Phone Policy Number Group Number Relation Employer Guarantor Name Guarantor Guarantor Address Guarantor Phone [employer] [facility] [id number] [employer] [facility] [id number] [place] [id number] [facility] [id number] [employer] re Advant age [employer] ARE [address], [place] [address] tel:[phone] Unknown Problems Results No Results Allergies, adverse reactions, alerts No known allergies and adverse reactions Medications No administered medications reported Vital Signs No vital signs reported Social History No smoking Hx information available
--- OUTSIDE RECORDS SUMMARY | 2024-09-10 14:51 | XMS_ITS | Clinical Summary ---
Author Organization [facility] Address [address] [place] [address] Care Team Providers Care Employee Placement Specialist Name Role Phone Jamey Barrera MD Primary Care Provider [phone] Allergies Active Allergy Reactions Criticality Noted Date [...] place to sleep or slept in a retirement (including now)? No 03/10/2022 Comments No Sex and Gender Information Value Date Recorded Sex Assigned at Female 04/07/2024 11:55 AM TAPPER HELPER Legal Sex Female 12:19 PM TAPPER HELPER Gender Identity Not on file Sexual Orientation Not on file Last Filed Vital Signs Vital Sign Reading Time Taken Comments Blood Pressure 113/59 04/07/2024 11:45 AM TAPPER HELPER Pulse 71 04/07/2024 11:45 AM TAPPER HELPER Temperature 37 C (98.6 F) 04/07/2024 11:45 AM TAPPER HELPER Respiratory Rate 19 04/07/2024 11:45 AM TAPPER HELPER Oxygen Saturation 98% 04/07/2024 11:45 AM TAPPER HELPER Inhaled Oxygen Concentration - - Weight 97.5 kg (215 lb) 04/07/2024 11:45 AM TAPPER HELPER Height 160 cm (5' 3) 04/07/2024 11:45 AM TAPPER HELPER Body Mass Index 38.09 04/07/2024 11:45 AM TAPPER HELPER Plan of Treatment Health Maintenance Due Date [...] 7:36 PM 03/17/2022 7:45 PM Care Teams Employee Placement Specialist Relationship Specialty Start Date End Date Jamey Barrera MD PCP - General INTERNAL MEDICINE 03/12/22
[2024-09-10 16:01] VITALS: BP 139/99; PULSE 98; RESP 20; TEMP 36.3; O2SAT 99
--- NOTE | 2024-09-10 16:47 | ED_ITS ---
HPI - Neck Pain/Injury General Chief Complaint: Neck Pain/Injury Stated Complaint: neck pain Time Seen by Provider: 09/10/24 16:28 Source: patient and RN notes reviewed Mode of arrival: ambulatory Limitations: no limitations History of Present Illness HPI Narrative: 79 y/o AAF in the ED for c/o neck, bilat shoulder, and upper back pain X1 week. Pt states she was seen last week in and the ED s/p a slot machine falling on her leg. Pt believes that when the slot machine fell on her leg, she pulled muscles in her upper body trying to remove the slot machine from her leg. Pt endorses worsening pain to both UE with movement. Pt states neck pain w/radiation down left arm to elbow. Pt taking [place], Tylenol, and Flexeril for pain w/ some relief. Pt denies any hx of cervical or back issues. Pt denies any CP, SOB, LOC, dizziness, or vision complaints. Related Data Home Medications ?Medication ?Instructions ?Recorded ?Confirmed ?Last Taken ?Type ferrous sulfate 325 mg (65 mg 325 mg PO TID 10/25/19 09/02/24 09/09/20 History iron) tablet ascorbic acid (vitamin C) 1,000 mg 1 g PO BID 08/13/22 09/02/24 Unknown History capsule aspirin 81 mg tablet 81 mg PO DAILY 08/13/22 09/02/24 11/25/23 History cetirizine 10 mg tablet 10 mg PO DAILY PRN Allergy Symptoms 08/13/22 09/02/24 Unknown History nystatin 100,000 unit/gram topical 1 applic topical BID PRN Rash 08/13/22 09/02/24 Unknown History powder cyanocobalamin (vitamin B-12) 500 500 mcg PO 3XW 12/15/22 09/02/24 Unknown History mcg tablet magnesium oxide 400 mg PO DAILY 12/31/22 09/02/24 Unknown History tizanidine 4 mg capsule (Zanaflex) 4 mg PO TID PRN 08/12/24 09/02/24 Unknown History Allergies Allergy/AdvReac Type Severity Reaction Status Date / Time Penicillins Allergy Unknown Rash Verified 09/10/24 16:06 cephalexin Allergy Rash Verified 09/10/24 16:06 erythromycin base AdvReac Unknown Diarrhea Verified 09/10/24 16:06 Review of Systems Review of Systems: All systems reviewed & are unremarkable except as noted in HPI and below PMFSH Past Medical History Medical History BMI 33.0-33.9,adult Chronic sphenoidal sinusitis Chronic maxillary sinusitis Sinus headache BMI 31.0-31.9,adult Hip pain, bilateral Arthritis of left knee Degenerative joint disease (DJD) of lumbar spine COVID-19 Bilateral hand pain Renal insufficiency Lumbar and sacral arthritis Osteoarthritis of left knee Screening for breast cancer Mass of both axillae Bilateral shoulder region arthritis Bilateral shoulder pain Hemoglobin A1c less than 7.0% 6.9 on 04/05/19 BMI 38.0-38.9,adult Stroke Hypertension Fibromyalgia (~2009) Gastric ulcer without hemorrhage or perforation Adhesive capsulitis of right shoulder Generalized osteoarthritis of multiple sites (~2009) Seronegative rheumatoid arthritis of both hands (~2014) Anemia Anxiety Arthritis Depression Diabetes a1c=6.9 (04/05/19) Surgical History Surgical History History of knee surgery 12/2013 Dr. Peña Hx of cholecystectomy History of carpal tunnel release H/O cataract extraction H/O elbow surgery H/O: hysterectomy History of hip replacement 03/2018 Family History Family History Father Hypertension Family history of diabetes mellitus in first degree relative Diabetes mellitus Carcinoma of colon Mother Hypertension Carcinoma of colon Sibling Carcinoma of colon Grandparent Cerebrovascular accident Other Family history of cardiovascular disease Family history of malignant neoplasm Social History Social History Smoking packs per day: 0.25 Smoking cigarettes per day: 5.0 Years smoked: 15 Smoking pack-years: 3.75 Smoking status: Former smoker Tobacco type: cigarettes Second hand tobacco smoke exposure: Yes Smoking end date: 08/23/84 Alcohol intake: current Alcohol use details: occasional Substance use: never Substance use type: does not use Do You Feel Safe in your Home?: Yes Lack of Transportation: No Lack of Food: Never True Current Housing: I Have Housing Concerned About Future Housing: Decline to Answer Difficulty Paying Gas/Electric Bills: Decline to Answer Difficulty Paying for Meds: Decline to Answer Currently Unemployed: Decline to Answer Education: Decline to Answer Difficulty w/ Childcare or Family Care: Decline to Answer Living arrangements: alone Additional living arrangements comments: Occupation/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 HEAD: Normocephalic, atraumatic. EYES: PERRLA and EOMI. ENT: Nares clear, no rhinorrhea or epistaxis. Mucous membranes moist. NECK: Supple. CHEST: Clear to auscultation. No respiratory distress. HEART: Regular rate and rhythm. No murmur heard. Normal peripheral pulses. ABDOMEN: Soft, nontender, nondistended, normal active bowel sounds. EXTREMITIES: No edema. Pt able to abduct to 150 degress w/ pain. Positive empty can test and lag sign. SKIN: Warm, dry, no rash. NEURO: No focal deficits. Alert and oriented x3. PSYCH: Normal mood and affect. Const: General: healthy appearing Nutritional Appearance: well nourished and obese Orientation/consciousness: patient oriented x3 Limitations: no limitations HENMT: Head: normal to inspection Mouth: Yes Normal oral and palatal mucosa present Teeth and gingiva: dentition normal Eyes: Pupils: Equal, round and reactive pupils present EOM: EOMs intact bilaterally Neck: Neck: normal visual inspection Chest: Chest palpation & inspection: normal inspection of the chest Resp: Effort & Inspection: normal respiratory effort Auscultation: clear to auscultation bilaterally Cardio: Rate: regular rate Rhythm: regular rhythm GI: GI Palp: Yes Soft to palpation Auscultation: normal bowel sounds : General: Yes bladder normal to palpation Back/Spine/Pelvis: Back: no CVA tenderness Cervical Spine: cervical muscular tenderness, pain with cervical ROM and other (Negative Mills's) Thoracic/Lumbar Spine: thoracic and lumbar spine normal to inspection Skin: General skin exam: normal color Rashes: no rashes Wounds: no wounds Neuro: General: patient oriented x3 and moves all extremities Speech: normal speech Extrem: Right upper extremity: shoulder/upper arm tenderness Left upper extremity: shoulder/upper arm tenderness Right lower extremity: normal to inspection Left lower extremity: normal to inspection Psych: Mental Status: mental status grossly normal Affect: normal affect Attitude: cooperative Course Vital Signs Vital signs: Vital Signs Temperature 36.3 C L 09/10/24 16:01 Pulse Rate 98 09/10/24 16:01 Respiratory Rate 20 09/10/24 16:01 Blood Pressure 139/99 H 09/10/24 16:01 Pulse Oximetry 99 09/10/24 16:01 Oxygen Delivery Room Air 09/10/24 16:01 Temperature 36.3 C L 09/10/24 16:01 Pulse Rate 98 09/10/24 16:01 Respiratory Rate 20 09/10/24 16:01 Blood Pressure 139/99 H 09/10/24 16:01 Pulse Oximetry 99 09/10/24 16:01 Oxygen Delivery Room Air 09/10/24 16:01 MDM - Neck Pain/Injury MDM Narrative Medical decision making narrative: X-rays of the neck and bilateral shoulders obtained, showing no OA per radiologist read without fracture. Patient given 30 mg Toradol IM in the emergency room, pain less after administration. Differential Diagnosis Differential diagnosis: Likely disc disorder of cervical region, cervical radiculopathy, strain of neck muscle and other (shoulder sprain, rotator cuff injury) Medical Records Attestation: I reviewed the patient's medical records. Imaging Data Radiologist's impression: ITS Impressions Cervical Spine X-Ray 09/10/24 18:13 Impression: Moderate facet arthropathy throughout the cervical spine. Shoulder X-Ray 09/10/24 18:13 Impression: Moderate to advanced degenerative changes, as above. Shoulder X-Ray 09/10/24 18:13 Impression: Degenerative changes, as above, worst at the glenohumeral joint. Discharge Plan Discharge Clinical Impression: Cervicalgia Bilateral shoulder pain Qualifiers: Chronicity: acute Qualified Code(s): M25.511 - Pain in right shoulder Patient Disposition: Home Condition: Stable Instructions: Antibiotic Form, Shoulder Pain (ED), Neck Pain (ED) Additional Instructions: Continue current medication regimen as prescribed. Take Medrol Dosepak as prescribed. May add Voltaren gel to shoulders and neck for additional pain relief. Follow-up with primary care as scheduled. Patient Language: Libyan Prescriptions: No Action nystatin 100,000 unit/gram powder 1 applic topical BID PRN (Reason: Rash) cetirizine 10 mg Tablet 10 mg PO DAILY PRN (Reason: Allergy Symptoms) aspirin 81 mg Tablet 81 mg PO DAILY ascorbic acid (vitamin C) 1,000 mg Capsule 1 g PO BID cyanocobalamin (vitamin B-12) 500 mcg tablet 500 mcg PO 3XW Rx Instructions: 500 mcg orally three tabs weekly; magnesium oxide 400 mg magnesium capsule 400 mg PO DAILY Rinvoq 15 mg tablet extended release 24 hr 15 mg PO DAILY Qty: 30 11RF (DME) FreeStyle Tiera 2 Sensor Kit See Rx Instructions .Route Qty: 1 4RF Rx Instructions: As directed azelastine 137 mcg (0.1 %) spray,non-aerosol 1 spray intranasal Q12H 30 Days Qty: 30 2RF Rx Instructions: administer into each nostril fluticasone propionate 50 mcg/actuation spray,suspension 1 spray intranasal DAILY 30 Days Qty: 16 2RF Rx Instructions: administer into each nostril levothyroxine [Euthyrox] 100 mcg tablet 100 mcg PO DAILY Qty: 90 3RF Patient Comments: IN AM Rx Instructions: Take 1 tablet by mouth once daily cyclobenzaprine 10 mg tablet 10 mg PO TID PRN (Reason: muscle spasm) Qty: 90 1RF tizanidine [Zanaflex] 4 mg capsule 4 mg PO TID PRN celecoxib [Celebrex] 200 mg capsule 200 mg PO DAILY Qty: 30 0RF ferrous sulfate 325 mg (65 mg iron) tablet 325 mg PO TID hydrocodone-acetaminophen 5-325 mg tablet 1 tablet PO Q6H PRN (Reason: pain) Qty: 10 0RF cholecalciferol (vitamin D3) 50 mcg (2,000 unit) tablet 50 mcg PO DAILY Qty: 90 1RF calcium carbonate 500 mg calcium (1,250 mg) tablet 500 mg PO DAILY Qty: 90 1RF (DME) FreeStyle Tiera 2 [place] Misc See Rx Instructions .Route Qty: 1 0RF Rx Instructions: As directed leflunomide 10 mg tablet 10 mg PO DAILY Qty: 90 1RF atorvastatin 10 mg tablet 10 mg PO DAILY Qty: 100 1RF potassium chloride 20 mEq tablet extended release 20 meq PO BID Qty: 180 2RF trazodone 100 mg tablet 100 mg PO .COMPLEX PRN (Reason: sleep) Qty: 180 1RF Rx Instructions: 100 mg orally Take 1-2 PO QHS PRN sleep PRN; ondansetron HCl 4 mg tablet 4 mg PO Q6H PRN (Reason: Nausea) Qty: 60 1RF losartan 100 mg tablet 100 mg PO DAILY Qty: 100 3RF Patient Comments: IN AM Rx Instructions: Take 1 tablet by mouth once daily pregabalin [Lyrica] 100 mg capsule 100 mg PO BID Qty: 180 1RF furosemide [Lasix] 40 mg tablet 40 mg PO DAILY Qty: 90 1RF Patient Comments: IN AM folic acid 1 mg tablet 1 mg PO DAILY Qty: 90 1RF omeprazole 40 mg capsule,delayed release(DR/EC) 40 mg PO DAILY Qty: 90 1RF Ozempic 2 mg/dose (8 mg/3 mL) pen injector See Rx Instructions .ROUTE .COMPLEX Qty: 3 5RF Dose Instruction: INJECT 2 MG SUBCUTANEOUSLY ONCE A WEEK Patient Comments: SUNDAYS Rx Instructions: INJECT 2 MG SUBCUTANEOUSLY ONCE A WEEK metoprolol succinate 50 mg tablet extended release 24 hr See Rx Instructions .ROUTE .COMPLEX Qty: 30 5RF Dose Instruction: Take 1 tablet by mouth once daily Rx Instructions: Take 1 tablet by mouth once daily lubiprostone 8 mcg capsule 8 mcg PO BID Qty: 60 3RF hydrocodone-acetaminophen 5-325 mg tablet 1 tablet PO TID PRN (Reason: Pain) Qty: 60 0RF duloxetine 60 mg capsule,delayed release(DR/EC) See Rx Instructions .ROUTE .COMPLEX Qty: 60 5RF Dose Instruction: Take 1 capsule by mouth twice daily Rx Instructions: Take 1 capsule by mouth twice daily alendronate 70 mg tablet 70 mg PO WEEKLY Qty: 12 1RF Patient Comments: TAKES ON SUNDAYS Rx Instructions: Sundays metformin 1,000 mg tablet See Rx Instructions .ROUTE .COMPLEX Qty: 180 3RF Dose Instruction: Take 1 tablet by mouth twice daily with food Rx Instructions: Take 1 tablet by mouth twice daily with food pioglitazone 30 mg tablet 30 mg PO DAILY Qty: 100 1RF Patient Comments: QAM alprazolam [Xanax] 0.5 mg tablet 0.5 mg PO BID PRN (Reason: Anxiety) Qty: 60 0RF Follow-up/Referrals: Gian Weaver APRN [Primary Care Provider] - 1 Week
--- OUTSIDE RECORDS SUMMARY | 2024-09-10 16:54 | XMS_ITS | Clinical Summary ---
Author Organization [facility] Myrna shelby Address [address] [place] [address] Phone Care Team Providers Care Hr Manager Name Role Phone Sid Wright DO Primary Care Provider [phone] Allergies Active Allergy Reactions Criticality Noted Date [...] pain 0 Active Lancets (OneTouch Delica Plus [id number]) misc USE 1 TO CHECK GLUCOSE THREE [...] anxiety 0 Active Blood Glucose Monitoring Suppl (vWise Verio Flex System) w/Device kit USE TO CHECK GLUCOSE TWICE DAILY 1 Active Ziften TechnologiesTouch Verio test strip USE STRIP TO CHECK [...] MOUTH ONCE A WEEK 2 Active Nystop 558357 UNIT/GM powder Apply topically 2 (two) times [...] 2019 Insurance [employer] MEDICARE ADVANTAGE Care Teams Hr Manager Relationship Specialty Start Date End Date Sid Wright DO [address] [place] [address] PCP - General Internal Medicine 12/15/19
--- OUTSIDE RECORDS SUMMARY | 2024-09-10 16:55 | XMS_ITS | Clinical Summary ---
Author Organization [facility] Jose Conner Address [address] [place] [address] Care Team Providers Care Supervisor Kosher Dietary Service Name Role Phone Sid Wright April CEDENO Primary Care Provider Allergies Active Allergy Reactions Criticality Noted Date Comments Ciprofloxacin Rash Low 12/14/2023 Erythromycin Diarrhea,Hives High 11/27/2015 Erythromycin Base Hives High 01/13/2019 Penicillins Rash Medium 11/27/2015 Medications pregabalin (LYRICA) 100 mg Capsule Take 100 mg by mouth every 12 hours. Active levothyroxine 100 mcg tablet Take 100 mcg by mouth daily enterprise application developer. Active losartan (COZAAR) 100 mg tablet Take [...] SLEEP 0 Active naloxone (NARCAN) 4 mg/spray [place]ell, Non-Aerosol EMERGENCY USE ONLY: Administer 1 spray [...] Data STL ABSTRACTION Provider, Abstract 07/25/2024 Refill [facility] - [place] [address] [place] [address] Jackson Mariscal MD Chronic anemia 07/01/2024 Orders Only [facility] - [place] [address] [place] [address] Jackson Mariscal MD 06/30/2024 2:15 PM CDT Office Visit [facility] - [place] [address] [place] [address] Jackson Mariscal MD Chronic anemia (Primary Dx) 06/27/2024 Refill [facility] Oncology [facility] Hematology - [place] [address] [place] [address] Jackson Mariscal MD Chronic anemia [...] st Contact Info) Description 01/05/2025 2:45 PM TICK INSPECTOR Office Visit [facility] Oncology and Hematology - [place] [address] [place] [address] Jackson Mariscal MD [address] [facility] [address] [place] [address] Health Maintenance Due Date Last [...] IMMUNOASSAY, COLORECTAL SCREEN Routine 01/05/2019 7:30 AM TICK INSPECTOR from Last 3 Months or Most Recently [...] >5.4 FASTING:NO FASTING: NO Test Performed at: [facility] [address] [place] [address] Coty Adams MD Blood 06/22/2024 12:5 3 PM CDT 06/22/2024 12:56 PM CDT Jackson Mariscal MD CHEMISTRY ORDERABLES Final Resu lt Performing Organization Address [facility] Co de Phone Number [facility] [phone] [facility] [address] [facility] [place] [address] * (ABNORMAL) IRON, TIBC, AND PERCENT SATURATION (06/22/2024 12:53 PM CDT) Pathologist [facility] IRON 147 45 - 160 mcg/dL [facility] TIBC 279 250 - 450 mcg/dL (calc) [facility] IRON % SATURATION 53(H) 16 - 45 % (calc) [facility] Comment: FASTING:NO FASTING: NO Test Performed at: [facility] [address] [facility] [address] Coty Adams MD Blood 06/22/2024 12:5 3 PM CDT 06/22/2024 12:56 PM CDT Jackson Mariscal MD CHEMISTRY ORDERABLES Final Resu lt Performing Organization Address City/[facility] Co de Phone Number [facility] [phone] [facility] [address] * (ABNORMAL) FERRITIN (06/22/2024 12:53 PM CDT) Pathologist [facility] FERRITIN 456(H) 16 - 288 ng/mL [facility] Comment: Test Performed at: [address] [address] Coty Adams MD Blood 06/22/2024 12:5 3 PM CDT 06/22/2024 12:56 PM CDT Jackson Mariscal MD CHEMISTRY ORDERABLES Final Resu lt [facility] [phone] [facility] [address] * OCCULT BLOOD IMMUNOASSAY, COLORECTAL SCREEN (01/05/2019 7:30 AM TICK INSPECTOR) Pathologist [facility] FECAL GLOBIN [facility] Comment: FECAL GLOBIN BY IMMUNOCHEMISTRY MICRO NUMBER: [id number] TEST STATUS: FINAL SPECIMEN SOURCE: INSURE (TM) FOBT TEST CARD SPECIMEN QUALITY: ADEQUATE Fecal Globin: Not Detected SPLIT 01/03/2019 FROM [id number] Test Performed at: [facility] [address] Jonatan Anderson D.O., MPH 01/05/2019 7:30 AM TICK INSPECTOR Jackson Mariscal MD BODY FLUIDS AND STOOLS Edited R esult - Final [facility] [facility] [address] [place] [address] from Last 3 Months or Most Recently Relevant to Health Maintenance [facility] Care Teams Supervisor Kosher Dietary Service Relationship Specialty Start Date End Date Sid Wright DO [address] [facility] [address] [place] [address] PCP - General Internal Medicine 12/14/23
--- OUTSIDE RECORDS SUMMARY | 2024-09-10 16:55 | XMS_ITS | Clinical Summary ---
Author Organization [facility] [employer] Address [address] [place] [place] [address] Care Team Providers Care Director Multiple Sclerosis Center Name Role Phone Nura Acosta MD Primary Care Provider [phone] Source Comments [facility],non-owned Affiliates and Associated Physician Practices is amultiple site organization consisting of ambulatory clinics and hospital sitesin [place], [place], [place] and [place]. This disclosure is being madepursuant to the Care Everywhere program and may not contain all information available regarding this patient. Last updated 17.[facility] [employer] Allergies Active Allergy Reactions Criticality Noted Date [...] tablet by mouth once daily 0 Active Salus [employer]TOUCH VERIO test strip USE 1 STRIP TO [...] 40 MG capsule 3 Active nystatin (Mycostatin) 065914 UNIT/GM powder APPLY POWDER TOPICALLY THREE TIMES [...] 4 times daily 3 Active HYDROcodone-farnaz taminophen ([place]) 7.5-325 MG tablet Take 1 (one) tablet [...] on file Legal Sex Female 5:21 PM SOFTWARE SPECIALIST Gender Identity Not on file Sexual Orientation Not on file Last Filed Vital Signs Vital Sign Reading Time Taken Comments Blood Pressure 118/60 03/14/2021 10:58 AM SOFTWARE SPECIALIST Pulse 74 03/14/2021 10:58 AM SOFTWARE SPECIALIST Temperature 36.4 C (97.6 F) 03/14/2021 10:58 AM SOFTWARE SPECIALIST Respiratory Rate 15 11/19/2016 11:30 AM CDT Oxygen Saturation 98% 03/14/2021 10:58 AM SOFTWARE SPECIALIST Inhaled Oxygen Concentration - - Weight 97.1 kg (214 lb) 04/17/2021 3:20 PM SOFTWARE SPECIALIST Height 160 cm (5' 3) 04/17/2021 3:20 PM SOFTWARE SPECIALIST Body Mass Index 37.91 04/17/2021 3:20 PM SOFTWARE SPECIALIST Plan of Treatment Health Maintenance Due Date [...] Insurance AET AETNA MEDICARE ADV Care Teams Director Multiple Sclerosis Center Relationship Specialty Start Date End Date Nura Acosta MD [address] [place] [address] PCP - General Family Medicine 03/13/23
--- OUTSIDE RECORDS SUMMARY | 2024-09-10 16:55 | XMS_ITS | Clinical Summary ---
Author Organization [facility] Address [address] [place] [address] Care Team Providers Care Rough And Truing Machine Operator Name Role Phone Jamey Barrera MD Primary Care Provider [phone] Allergies Active Allergy Reactions Criticality Noted Date [...] place to sleep or slept in a usp (including now)? No 03/10/2022 Comments No Sex and Gender Information Value Date Recorded Sex Assigned at Female 04/07/2024 11:55 AM GRANTS ADMINISTRATOR Legal Sex Female 12:19 PM GRANTS ADMINISTRATOR Gender Identity Not on file Sexual Orientation Not on file Last Filed Vital Signs Vital Sign Reading Time Taken Comments Blood Pressure 113/59 04/07/2024 11:45 AM GRANTS ADMINISTRATOR Pulse 71 04/07/2024 11:45 AM GRANTS ADMINISTRATOR Temperature 37 C (98.6 F) 04/07/2024 11:45 AM GRANTS ADMINISTRATOR Respiratory Rate 19 04/07/2024 11:45 AM GRANTS ADMINISTRATOR Oxygen Saturation 98% 04/07/2024 11:45 AM GRANTS ADMINISTRATOR Inhaled Oxygen Concentration - - Weight 97.5 kg (215 lb) 04/07/2024 11:45 AM GRANTS ADMINISTRATOR Height 160 cm (5' 3) 04/07/2024 11:45 AM GRANTS ADMINISTRATOR Body Mass Index 38.09 04/07/2024 11:45 AM GRANTS ADMINISTRATOR Plan of Treatment Health Maintenance Due Date [...] 7:36 PM 03/17/2022 7:45 PM Care Teams Rough And Truing Machine Operator Relationship Specialty Start Date End Date Jamey Barrera MD PCP - General INTERNAL MEDICINE 03/12/22
--- OUTSIDE RECORDS SUMMARY | 2024-09-10 16:55 | XMS_ITS ---
Author Name Auto Generated, Auto Generated Organization [facility] Address [address] [place] [address] Phone [phone] Care Team Providers Care Clammer Name Role Phone Jai Galeano Unavailable Mel Doty Unavailable [phone] Bianka Cobos Unavailable [phone] Esther Hollis Unavailable Functional Status No Results [...]
--- OUTSIDE RECORDS SUMMARY | 2024-09-10 16:55 | XMS_ITS ---
Author Name Auto Generated, Auto Generated Organization [facility] Address [address] [place] [address] Phone [phone] Care Team Providers Care Farm Adviser Name Role Phone Jai Galeano Unavailable [phone] Mel Doty Unavailable [phone] Bianka Cobos Unavailable Esther Hollis Unavailable Functional [...]
[2024-09-10] MEDS: KETOROLAC 30 MG/ML VIAL (*BKC) IM (17:40)
[2024-09-10 19:19] VITALS: BP 122/62; PULSE 62; RESP 18; TEMP 36.7; O2SAT 99
== END 2024-09-10 19:21 | disposition home or self-care (01) ==
PROVIDERS: Emergency Provider Registered Nurse Emergency; PCP Nurse Practitioner
DX: M54.2 Cervicalgia (principal); M25.512 Pain in left shoulder; M25.511 Pain in right shoulder; E11.9 Type 2 diabetes mellitus without complications; J32.3 Chronic sphenoidal sinusitis; J32.0 Chronic maxillary sinusitis; N28.9 Disorder of kidney and ureter, unspecified; M19.012 Primary osteoarthritis, left shoulder; F41.9 Anxiety disorder, unspecified; F32.A Depression, unspecified; Z96.649 Presence of unspecified artificial hip joint; Z86.73 Personal history of transient ischemic attack (TIA), and cerebral infarction without residual deficits; Z86.16 Personal history of COVID-19; Z86.2 Personal history of diseases of the blood and blood-forming organs and certain disorders involving the immune mechanism; Z87.891 Personal history of nicotine dependence; Z90.49 Acquired absence of other specified parts of digestive tract; Z79.82 Long term (current) use of aspirin; Z79.899 Other long term (current) drug therapy; Z79.84 Long term (current) use of oral hypoglycemic drugs; Z79.85 Long-term (current) use of injectable non-insulin antidiabetic drugs; Z79.622 Long term (current) use of Janus kinase inhibitor; Z20.3 Contact with and (suspected) exposure to rabies
CPT/HCPCS: 72040; 73030; 96372; 99284; J1885

== ENCOUNTER 2024-10-22 14:21 | Emergency (ER) | payer MEDICARE, SELFPAY ==
--- NOTE | 2024-10-22 14:24 | ED.EYEPROB ---
HPI - Eye Problem General Chief complaint: Eye Problems Stated complaint: irritation in both eyes Time Seen by Provider: 10/22/24 14:35 Source: patient Mode of arrival: ambulatory Limitations: no limitations History of Present Illness HPI Narrative: Tereza is a 79-year-old female patient presenting to the clinic today with complaints of bilateral eye irritation. She reports the left eye is irritated and draining some clear discharge states that the right eye is starting to have similar symptoms but very mild. Has pain and swelling over the left eye. No known injury. Feels as though there is agree sensation in the eye and has mild discomfort. No pain to the right eye currently but is occasionally draining some clear fluid. Has an eye doctor that she sees regularly. She denies any fevers, chills, body aches. She denies any changes in her vision. Has been using refresh eyedrops for her symptoms. Visual acuity was performed. Related Data Home Medications ?Medication ?Instructions ?Recorded ?Confirmed ?Last Taken ?Type ferrous sulfate 325 mg (65 mg 325 mg PO TID 10/25/19 10/11/24 09/09/20 History iron) tablet ascorbic acid (vitamin C) 1,000 mg 1 g PO BID 08/13/22 10/11/24 Unknown History capsule aspirin 81 mg tablet 81 mg PO DAILY 08/13/22 10/11/24 11/25/23 History Held on 12/02/23. Instructions: Resume on 12/09/23. cetirizine 10 mg tablet 10 mg PO DAILY PRN Allergy Symptoms 08/13/22 10/11/24 Unknown History cyanocobalamin (vitamin B-12) 500 500 mcg PO 3XW 12/15/22 10/11/24 Unknown History mcg tablet magnesium oxide 400 mg PO DAILY 12/31/22 10/11/24 Unknown History Allergies Allergy/AdvReac Type Severity Reaction Status Date / Time Penicillins Allergy Unknown Rash Verified 10/22/24 14:26 cephalexin Allergy Rash Verified 10/22/24 14:26 erythromycin base AdvReac Unknown Diarrhea Verified 10/22/24 14:26 [facility] Past Medical History Medical History BMI 32.0-32.9,adult BMI 33.0-33.9,adult Chronic sphenoidal sinusitis Chronic maxillary sinusitis Sinus headache BMI 31.0-31.9,adult Hip pain, bilateral Arthritis of left knee Degenerative joint disease (DJD) of lumbar spine COVID-19 Bilateral hand pain Renal insufficiency Lumbar and sacral arthritis Osteoarthritis of left knee Screening for breast cancer Mass of both axillae Bilateral shoulder region arthritis Bilateral shoulder pain Hemoglobin A1c less than 7.0% 6.9 on 04/05/19 BMI 38.0-38.9,adult Stroke Hypertension Fibromyalgia (~2009) Gastric ulcer without hemorrhage or perforation Adhesive capsulitis of right shoulder Generalized osteoarthritis of multiple sites (~2009) Seronegative rheumatoid arthritis of both hands (~2014) Anemia Anxiety Arthritis Depression Diabetes a1c=6.9 (04/05/19) Surgical History Surgical History History of knee surgery 12/2013 Dr. Peña Hx of cholecystectomy History of carpal tunnel release H/O cataract extraction H/O elbow surgery H/O: hysterectomy History of hip replacement 03/2018 Family History Family History Father Hypertension Family history of diabetes mellitus in first degree relative Diabetes mellitus Carcinoma of colon Mother Hypertension Carcinoma of colon Sibling Carcinoma of colon Grandparent Cerebrovascular accident Other Family history of cardiovascular disease Family history of malignant neoplasm Social History Social History (Updated 09/29/24 @ 13:18 by Trinity Landon [facility]) Smoking packs per day: 0.25 Smoking cigarettes per day: 5.0 Years smoked: 15 Smoking pack-years: 3.75 Smoking status: Former smoker Tobacco type: cigarettes Second hand tobacco smoke exposure: Yes Smoking end date: 08/23/84 Alcohol intake: never Substance use: never Substance use type: does not use Do You Feel Safe in your Home?: Yes Lack of Transportation: No Lack of Food: Never True Current Housing: I Have Housing Concerned About Future Housing: No Difficulty Paying Gas/Electric Bills: No Difficulty Paying for Meds: No Currently Unemployed: No Education: Master's Degree or Higher Difficulty w/ Childcare or Family Care: No Living arrangements: alone Additional living arrangements comments: Occupation/Education: 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 There is no relevant family history pertinent to the patient complaint. Exam Narrative: General: Well-developed, morbidly obese, in no apparent distress Head: Normocephalic, atraumatic Eyes: Pupils equally round and reactive to light bilaterally, EOM intact, right sclera and conjunctive clear with clear discharge, left sclera injected with normal conjunctiva-clear discharge coming from the eye, swelling noted around the periorbital area the left eye with tenderness to palpation, subconjunctival hemorrhage noted to the left lower eye outside the visual field, Wood's lamp and exam was performed and shows no sign of corneal abrasion or foreign body in left eye. Ears: TMs intact and clear, ear canals clear, no drainage, grossly hearing normal. Nose: Nares patent, no discharge, no inflammation, no sinus tenderness. Mouth: Oropharynx without lesions or masses, good dentition, MMM. Neck: Supple, trachea midline, no enlargement of anterior or posterior cervical nodes, no thyroid masses or goiter palpable. Cardio: Regular rate and rhythm, s1 and s2 normal, no murmur appreciated. Resp: Clear to auscultation bilaterally anteriorly and posteriorly, no rhonchi, rales, wheezing or rubs Course Course Emergency Course: Portions of this record may have been created with voice recognition software. Level of Care: Express Care Visit Vital Signs Vital signs: Vital Signs Temperature 36.2 C L 10/22/24 14:28 Pulse Rate 82 10/22/24 14:28 Respiratory Rate 16 10/22/24 14:28 Blood Pressure 139/83 10/22/24 14:28 Pulse Oximetry 100 10/22/24 14:28 Oxygen Delivery Room Air 10/22/24 14:28 Temperature 36.2 C L 10/22/24 14:28 Pulse Rate 82 10/22/24 14:28 Respiratory Rate 16 10/22/24 14:28 Blood Pressure 139/83 10/22/24 14:28 Pulse Oximetry 100 10/22/24 14:28 Oxygen Delivery Room Air 10/22/24 14:28 Vital signs reviewed Procedures Other Procedure Procedure 1: Other Procedure: Two drops of tetracaine topical anesthetic was instilled with good anesthesia. Fluorescein stain of the left eye was performed without uptake of dye. No epithelial defect was noted. NO FB, ulcer or dendritic lesions. Upper lid was everted and no FB or lesions were noted. NO Amara sign. Normal saline irrigation eye solution was performed and the patient tolerated the procedure well, no adverse reaction or complications. MDM - Eye Problem MDM Narrative Medical decision making narrative: At the time of visit patient is resting comfortably on the exam table. Patient appears to be nontoxic. complaints of bilateral eye irritation. She reports the left eye is irritated and draining some clear discharge states that the right eye is starting to have similar symptoms but very mild. Has pain and swelling over the left eye. No known injury. Feels as though there is agree sensation in the eye and has mild discomfort. No pain to the right eye currently but is occasionally draining some clear fluid. Has an eye doctor that she sees regularly. She denies any fevers, chills, body aches. She denies any changes in her vision. Has been using refresh eyedrops for her symptoms. Visual acuity was performed. On exam patient has what appears to be a subconjunctival hemorrhage to the left lower eye outside the visual field. Has swelling and tenderness around the periorbital area. Wood's lamp exam ordered. Procedure: Wood's lamp exam was performed and there was no sign of corneal abrasion. The patient has a subconjunctival hemorrhage to the left lower eye outside the visual field. No visualized foreign bodies. Plan: I suspect patient has bilateral eye irritation with periorbital swelling and tenderness of the left eye. Has subconjunctival hemorrhage to the left lower eye. Prescription for clindamycin and tobramycin eyedrops was sent over to cover for infectious process. Recommend ice pack to help alleviate swelling as well as taking Tylenol Motrin as needed for pain. Patient is diabetic. Will have patient follow-up with eye doctor soon as possible. Supportive measures were discussed with the patient and they voiced understanding discharge instructions and agrees to treatment plan. Return precautions reviewed Differential Diagnosis Differential diagnosis: Likely corneal abrasion, conjunctivitis, acute iritis, hyphema, periorbital cellulitis, subconjunctival hemorrhage, glaucoma, corneal ulcer and ruptured globe Discharge Plan Discharge Clinical Impression: Irritation of left eye, Periorbital edema of left eye Patient Disposition: Home Condition: Stable Instructions: Antibiotic Form, Eye Pain (ED), Periorbital Cellulitis (ED) Additional Instructions: Instill tobramycin eyedrops as prescribed Take clindamycin as prescribed Take probiotic daily-2 hours before 2 hours after taking 1 of the antibiotic doses Patient Language: Libyan Prescriptions: New clindamycin HCl [Cleocin HCl] 300 mg capsule 300 mg PO Q8H 7 Days Qty: 21 0RF tobramycin 0.3 % drops 1 drp LEFT EYE Q4H 7 Days Qty: 5 0RF No Action cetirizine 10 mg Tablet 10 mg PO DAILY PRN (Reason: Allergy Symptoms) aspirin 81 mg Tablet 81 mg PO DAILY ascorbic acid (vitamin C) 1,000 mg Capsule 1 g PO BID cyanocobalamin (vitamin B-12) 500 mcg tablet 500 mcg PO 3XW Rx Instructions: 500 mcg orally three tabs weekly; magnesium oxide 400 mg magnesium capsule 400 mg PO DAILY Rinvoq 15 mg tablet extended release 24 hr 15 mg PO DAILY Qty: 30 11RF (DME) FreeStyle Tiera 2 Sensor Kit See Rx Instructions .Route Qty: 1 4RF Rx Instructions: As directed azelastine 137 mcg (0.1 %) spray,non-aerosol 1 spray intranasal Q12H 30 Days Qty: 30 2RF Rx Instructions: administer into each nostril fluticasone propionate 50 mcg/actuation spray,suspension 1 spray intranasal DAILY 30 Days Qty: 16 2RF Rx Instructions: administer into each nostril levothyroxine [Euthyrox] 100 mcg tablet 100 mcg PO DAILY Qty: 90 3RF Patient Comments: IN AM Rx Instructions: Take 1 tablet by mouth once daily ferrous sulfate 325 mg (65 mg iron) tablet 325 mg PO TID cholecalciferol (vitamin D3) 50 mcg (2,000 unit) tablet 50 mcg PO DAILY Qty: 90 1RF calcium carbonate 500 mg calcium (1,250 mg) tablet 500 mg PO DAILY Qty: 90 1RF (DME) FreeStyle Tiera 2 [place] Misc See Rx Instructions .Route Qty: 1 0RF Rx Instructions: As directed leflunomide 10 mg tablet 10 mg PO DAILY Qty: 90 1RF atorvastatin 10 mg tablet 10 mg PO DAILY Qty: 100 1RF potassium chloride 20 mEq tablet extended release 20 meq PO BID Qty: 180 2RF ondansetron HCl 4 mg tablet 4 mg PO Q6H PRN (Reason: Nausea) Qty: 60 1RF losartan 100 mg tablet 100 mg PO DAILY Qty: 100 3RF Patient Comments: IN AM Rx Instructions: Take 1 tablet by mouth once daily pregabalin [Lyrica] 100 mg capsule 100 mg PO BID Qty: 180 1RF furosemide [Lasix] 40 mg tablet 40 mg PO DAILY Qty: 90 1RF Patient Comments: IN AM folic acid 1 mg tablet 1 mg PO DAILY Qty: 90 1RF omeprazole 40 mg capsule,delayed release(DR/EC) 40 mg PO DAILY Qty: 90 1RF Ozempic 2 mg/dose (8 mg/3 mL) pen injector See Rx Instructions .ROUTE .COMPLEX Qty: 3 5RF Dose Instruction: INJECT 2 MG SUBCUTANEOUSLY ONCE A WEEK Patient Comments: SUNDAYS Rx Instructions: INJECT 2 MG SUBCUTANEOUSLY ONCE A WEEK metoprolol succinate 50 mg tablet extended release 24 hr See Rx Instructions .ROUTE .COMPLEX Qty: 30 5RF Dose Instruction: Take 1 tablet by mouth once daily Rx Instructions: Take 1 tablet by mouth once daily duloxetine 60 mg capsule,delayed release(DR/EC) See Rx Instructions .ROUTE .COMPLEX Qty: 60 5RF Dose Instruction: Take 1 capsule by mouth twice daily Rx Instructions: Take 1 capsule by mouth twice daily alendronate 70 mg tablet 70 mg PO WEEKLY Qty: 12 1RF Patient Comments: TAKES ON SUNDAYS Rx Instructions: Sundays metformin 1,000 mg tablet See Rx Instructions .ROUTE .COMPLEX Qty: 180 3RF Dose Instruction: Take 1 tablet by mouth twice daily with food Rx Instructions: Take 1 tablet by mouth twice daily with food pioglitazone 30 mg tablet 30 mg PO DAILY Qty: 100 1RF Patient Comments: QAM alprazolam [Xanax] 0.5 mg tablet 0.5 mg PO BID PRN (Reason: Anxiety) Qty: 60 0RF trazodone 100 mg tablet 100 mg PO .COMPLEX PRN (Reason: sleep) Qty: 180 3RF Rx Instructions: 100 mg orally Take 1-2 PO QHS PRN sleep PRN; hydrocodone-acetaminophen 5-325 mg tablet 1 tablet PO TID PRN (Reason: Pain) Qty: 60 0RF Follow-up/Referrals: Sid Wright DO [Primary Care Provider, Internal Medicine] Time of Disposition: 15:10 Quality NIHSS Nursing Documentation ED NIHSS nursing documentation: reviewed/agree
[2024-10-22 14:28] VITALS: BP 139/83; PULSE 82; RESP 16; TEMP 36.2; O2SAT 100
[2024-10-22] MEDS: FLUORESCEIN SOD 1 MG/STRIP RIGHT EYE (14:58)
[2024-10-22] MEDS: DACRIOSE EYE IRRIGATION 118 ML BOTTLE RIGHT EYE (14:58)
[2024-10-22] MEDS: TETRACAINE HCL 0.5% OPHTH SOLN 4 ML BTL RIGHT EYE (14:58)
== END 2024-10-22 15:15 | disposition home or self-care (01) ==
PROVIDERS: Emergency Provider Nurse Practitioner Family; PCP Internal Medicine
DX: H57.89 Other specified disorders of eye and adnexa (principal); H05.222 Edema of left orbit; Z87.891 Personal history of nicotine dependence; E11.9 Type 2 diabetes mellitus without complications; Z79.84 Long term (current) use of oral hypoglycemic drugs; Z79.85 Long-term (current) use of injectable non-insulin antidiabetic drugs; M06.042 Rheumatoid arthritis without rheumatoid factor, left hand; M06.041 Rheumatoid arthritis without rheumatoid factor, right hand; M79.7 Fibromyalgia; I10 Essential (primary) hypertension; M19.012 Primary osteoarthritis, left shoulder; M19.011 Primary osteoarthritis, right shoulder; M47.816 Spondylosis without myelopathy or radiculopathy, lumbar region; M17.12 Unilateral primary osteoarthritis, left knee; Z86.73 Personal history of transient ischemic attack (TIA), and cerebral infarction without residual deficits; Z79.82 Long term (current) use of aspirin
CPT/HCPCS: 99213; A9270; G0463

== ENCOUNTER 2024-10-25 01:04 | Day surgery (SDC) | payer MEDICARE, SELFPAY ==
[2024-10-11 12:56] VITALS: BMI 31.6
--- OUTSIDE RECORDS SUMMARY | 2024-10-25 01:07 | XMS_ITS | Clinical Summary ---
Author Organization [facility] Address [address] [place] [id number] Phone Care Team Providers Care Psychological Aide Name Role Phone Sid Wright DO Primary Care Provider [phone] Allergies Active Allergy Reactions Criticality Noted Date [...] pain 0 Active Lancets (OneTouch Delica Plus [id number]) misc USE 1 TO CHECK GLUCOSE THREE [...] anxiety 0 Active Blood Glucose Monitoring Suppl (Dialoggy Verio Flex System) w/Device kit USE TO CHECK GLUCOSE TWICE DAILY 1 Active Dailyplaces GmbHTouch Verio test strip USE STRIP TO CHECK [...] MOUTH ONCE A WEEK 2 Active Nystop 824023 UNIT/GM powder Apply topically 2 (two) times [...] 2019 Insurance [employer] MEDICARE ADVANTAGE Care Teams Psychological Aide Relationship Specialty Start Date End Date Sid Wright DO [address] [place] [address] PCP - General Internal Medicine 12/15/19
--- OUTSIDE RECORDS SUMMARY | 2024-10-25 01:07 | XMS_ITS | Continuity of Care Document ---
Author Organization [facility] Address [address] [facility] [address] [place] [address] Insurance Providers Payer Plan Claims Address Claims Phone Policy Number Group Number Relation Employer Guarantor Name Guarantor Guarantor Address Guarantor Phone [employer] [facility] [id number] [employer] [facility] [id number] [address] [address] [place] [id number] [address] [facility] [id number] [employer] re Advant age [employer] [address], [place] [address] tel:[phone] Problems Unknown Problems Results No Results Allergies, adverse reactions, alerts No known allergies and adverse reactions Medications No administered medications reported Vital Signs No vital signs reported Social History No smoking Hx information available
--- OUTSIDE RECORDS SUMMARY | 2024-10-25 01:07 | XMS_ITS | Clinical Summary ---
Author Organization [facility] Address [address] [place] [address] Care Team Providers Care Youth Support Worker Name Role Phone Jamey Barrera MD Primary Care Provider [phone] Allergies Active Allergy Reactions Criticality Noted Date [...] place to sleep or slept in a chcf (including now)? No 03/10/2022 Comments No Sex and Gender Information Value Date Recorded Sex Assigned at Female 04/07/2024 11:55 AM FIRE RANGE TECHNICIAN Legal Sex Female 12:19 PM FIRE RANGE TECHNICIAN Gender Identity Not on file Sexual Orientation Not on file Last Filed Vital Signs Vital Sign Reading Time Taken Comments Blood Pressure 113/59 04/07/2024 11:45 AM FIRE RANGE TECHNICIAN Pulse 71 04/07/2024 11:45 AM FIRE RANGE TECHNICIAN Temperature 37 C (98.6 F) 04/07/2024 11:45 AM FIRE RANGE TECHNICIAN Respiratory Rate 19 04/07/2024 11:45 AM FIRE RANGE TECHNICIAN Oxygen Saturation 98% 04/07/2024 11:45 AM FIRE RANGE TECHNICIAN Inhaled Oxygen Concentration - - Weight 97.5 kg (215 lb) 04/07/2024 11:45 AM FIRE RANGE TECHNICIAN Height 160 cm (5' 3) 04/07/2024 11:45 AM FIRE RANGE TECHNICIAN Body Mass Index 38.09 04/07/2024 11:45 AM FIRE RANGE TECHNICIAN Plan of Treatment Health Maintenance Due Date [...] 7:36 PM 03/17/2022 7:45 PM Care Teams Youth Support Worker Relationship Specialty Start Date End Date Jamey Barrera MD PCP - General INTERNAL MEDICINE 03/12/22
--- OUTSIDE RECORDS SUMMARY | 2024-10-25 01:07 | XMS_ITS | Clinical Summary ---
Author Organization [facility] Address [address] [facility] [place] [address] Care Team Providers Care Lance Crewmember Name Role Phone Nura Acosta MD Primary Care Provider [phone] Source Comments [facility],non-owned Affiliates and Associated Physician Practices is amultiple site organization consisting of ambulatory clinics and hospital sitesin [place], [place], [place] and [place]. This disclosure is being madepursuant to the Care Everywhere program and may not contain all information available regarding this patient. Last updated 17.[facility] Allergies Active Allergy Reactions Criticality Noted Date [...] tablet by mouth once daily 0 Active DadShedTOUCH VERIO test strip USE 1 STRIP TO [...] 40 MG capsule 3 Active nystatin (Mycostatin) 884710 UNIT/GM powder APPLY POWDER TOPICALLY THREE TIMES [...] 4 times daily 3 Active HYDROcodone-farnaz taminophen ([place]) 7.5-325 MG tablet Take 1 (one) tablet [...] on file Legal Sex Female 5:21 PM SALES OFFICE ADMINISTRATOR Gender Identity Not on file Sexual Orientation Not on file Last Filed Vital Signs Vital Sign Reading Time Taken Comments Blood Pressure 118/60 03/14/2021 10:58 AM SALES OFFICE ADMINISTRATOR Pulse 74 03/14/2021 10:58 AM SALES OFFICE ADMINISTRATOR Temperature 36.4 C (97.6 F) 03/14/2021 10:58 AM SALES OFFICE ADMINISTRATOR Respiratory Rate 15 11/19/2016 11:30 AM CDT Oxygen Saturation 98% 03/14/2021 10:58 AM SALES OFFICE ADMINISTRATOR Inhaled Oxygen Concentration - - Weight 97.1 kg (214 lb) 04/17/2021 3:20 PM SALES OFFICE ADMINISTRATOR Height 160 cm (5' 3) 04/17/2021 3:20 PM SALES OFFICE ADMINISTRATOR Body Mass Index 37.91 04/17/2021 3:20 PM SALES OFFICE ADMINISTRATOR Plan of Treatment Health Maintenance Due [...] Insurance AET AETNA MEDICARE ADV Care Teams Lance Crewmember Relationship Specialty Start Date End Date Nura Acosta MD [address] [place] [address] PCP - General Family Medicine 03/13/23
--- OUTSIDE RECORDS SUMMARY | 2024-10-25 01:07 | XMS_ITS | Clinical Summary ---
Author Organization [facility] Conner Address [address] [place] [address] Care Team Providers Care Hardwood Sawyer Name Role Phone Sid Wright Primary Care Provider [phone] Allergies Active Allergy Reactions Criticality Noted Date Comments Ciprofloxacin Rash Low 12/14/2023 Erythromycin Diarrhea,Hives High 11/27/2015 Erythromycin Base Hives High 01/13/2019 Penicillins Rash Medium 11/27/2015 Medications pregabalin (LYRICA) 100 mg Capsule Take 100 mg by mouth every 12 hours. Active levothyroxine 100 mcg tablet Take 100 mcg by mouth daily loss prevention agent. Active losartan (COZAAR) 100 mg tablet Take [...] 02/21/20 20 Active naloxone (NARCAN) 4 mg/spray [place], Non-Aerosol EMERGENCY USE ONLY: Administer 1 spray [...] OneTouch Delica Plus Lancet 33 gauge 04/29/19 Active metFORMIN (GLUCOPHAGE) 1,000 mg tablet 02/12/20 Active methotrexate (RHEUMATREX) 2.5 mg Tablet TAKE 3 TABLETS BY MOUTH ONCE A WEEK 04/08/19 22 Active metoprolol succinate (TOPROL XL) 25 mg Extended Release 24 hour tablet Take 25 mg by mouth daily. 02/19/20 Active Nystop 100,000 unit/gram powder APPLY TOPICALLY [...] mouth every 8 hours as needed. 08/16/19 Active leflunomide (ARAVA) 10 mg tablet Take 10 mg by mouth daily. 07/10/19 Active hydroxychloro quine (PLAQUENIL) 200 mg tablet Take 200 mg by mouth daily. Active ferrous sulfate (Iron, Ferrous Sulfate,) 325 mg (65 mg iron) tabletIndicat ions:Chronic anemia Take 1 tablet by mouth twice daily 60 Tablet 2 10/18/19 Active ferrous sulfate 325 mg (65 mg iron) tabletIndicat ions:Chronic anemia Take 1 tablet by mouth BID. 60 Tablet 2 07/26/19 25 025 Discontinued Active Problems Problem Noted Date Diagnosed Date Type 2 diabetes mellitus without complication Normocytic anemia 01/13/2019 Encounters Date Type Department Care Team Description 10/17/2024 Refill [facility] - [place] [address] [address] Jackson Mariscal MD Chronic anemia 10/12/2024 External Device Data STL ABSTRACTION Provider, Abstract 10/04/2024 External Device Data [facility] ABSTRACTION Provider, Abstract 09/28/2024 External Device Data [facility] ABSTRACTION Provider, Abstract 08/02/2024 External Device Data [facility] ABSTRACTION Provider, Abstract 07/25/2024 Refill [facility] - [place] [address] [place] [address] Jackson Mariscal MD Chronic anemia [...] st Contact Info) Description 01/05/2025 2:45 PM AIR VICE MARSHAL Office Visit [facility] - [place] [address] [place] [address] Jackson Mariscal MD [facility] [address] [place] [address] Health Maintenance Due Date Last [...] Additional history exists INFLUENZA VACCINE (#1) 2024 0, 12/06/2019, 11/29/2018, Additional history exists Colorectal Cancer Screening Discontinued FIT/FOBT Q 1 year Discontinued 01/05/2019 ZOSTER VACCINE Completed 02/28/2020, 12/06/2019 COLORECTAL SCREENING Discontinued FIT-DNA Q 3 years Discontinued Flex Sig/CT Colonography Q 5 years Discontinued Procedures Procedure Name Priority Date/Time Associated Diagnosis Comments OCCULT BLOOD IMMUNOASSAY, COLORECTAL SCREEN Routine 01/05/2019 7:30 AM AIR VICE MARSHAL from Last 3 Months or Most Recently Relevant to Health Maintenance Results * OCCULT BLOOD IMMUNOASSAY, COLORECTAL SCREEN (01/05/2019 7:30 AM AIR VICE MARSHAL) FECAL GLOBIN [employer] [facility] Comment: FECAL GLOBIN BY IMMUNOCHEMISTRY MICRO NUMBER: [id number] TEST STATUS: FINAL SPECIMEN SOURCE: INSURE (TM) FOBT TEST CARD SPECIMEN QUALITY: ADEQUATE Fecal Globin: Not Detected SPLIT 01/03/2019 FROM [id number] Test Performed at: [facility] [address] [place] [address] Jonatan Anderson D.O., MPH 01/05/2019 7:30 AM AIR VICE MARSHAL Jackson Mariscal MD BODY FLUIDS AND STOOLS Aidee R esult - Final [employer] [facility] [address] [place] [address] from Last 3 Months or Most Recently Relevant to Health Maintenance Insurance AETNA O MCR Care Teams Hardwood Sawyer Relationship Specialty Start Date End Date Sid Wright DO [address] [facility] [address] [place] [address] PCP - General Internal Medicine 12/14/23
--- NOTE | 2024-10-25 11:30 | WPDANESEPPF ---
Anes - Initial Pre Proc Eval Procedure: Operation Date: 10/25/24 12:30 Proposed Procedures p EGD & Diagnostic Colonoscopy - Yvon Brennan MD Date/Time: 10/25/24 11:30 Surgeon: Yvon Brennan MD Pre Op Diagnosis: Noninfective gastroenteritis and colitis, unspecif Patient Data Age: 79 Gender: F Height: 1.6 m Weight: 81 kg Allergies Allergy/AdvReac Type Severity Reaction Status Date / Time Penicillins Allergy Unknown Rash Verified 10/25/24 11:29 cephalexin Allergy Rash Verified 10/25/24 11:29 erythromycin base AdvReac Unknown Diarrhea Verified 10/25/24 11:29 Home Medications ?Medication ?Instructions ?Recorded ?Confirmed ?Type ferrous sulfate 325 mg (65 mg 325 mg PO TID 10/25/19 10/11/24 History iron) tablet calcium carbonate 500 mg PO DAILY #90 tabs 06/06/20 09/15/24 Rx cholecalciferol (vitamin D3) 50 50 mcg PO DAILY #90 tabs 06/06/20 10/11/24 Rx mcg (2,000 unit) tablet ascorbic acid (vitamin C) 1,000 mg 1 g PO BID 08/13/22 10/11/24 History capsule aspirin 81 mg tablet 81 mg PO DAILY 08/13/22 10/11/24 History Held on 12/02/23. Instructions: Resume on 12/09/23. cetirizine 10 mg tablet 10 mg PO DAILY PRN Allergy Symptoms 08/13/22 10/11/24 History flash glucose sensor (FreeStyle #1 ea 09/12/22 09/15/24 Rx Tiera 2 Sensor kit) flash glucose scanning reader #1 ea 09/30/22 09/15/24 Rx (FreeStyle Tiera 2 [place]) cyanocobalamin (vitamin B-12) 500 500 mcg PO 3XW 12/15/22 10/11/24 History mcg tablet upadacitinib 15 mg tablet,extended 15 mg PO DAILY #30 tabs 12/29/22 10/11/24 Rx release 24 hr (Rinvoq) magnesium oxide 400 mg PO DAILY 12/31/22 10/11/24 History leflunomide 10 mg tablet 10 mg PO DAILY #90 tabs 06/26/23 10/11/24 Rx atorvastatin 10 mg tablet 10 mg PO DAILY #100 tabs 01/13/24 10/11/24 Rx potassium chloride 20 mEq 20 meq PO BID #180 tabs 03/16/24 10/11/24 Rx tablet,extended release ondansetron HCl 4 mg tablet 4 mg PO Q6H PRN Nausea #60 tabs 06/06/24 10/11/24 Rx losartan 100 mg tablet 100 mg PO DAILY #100 tabs 06/09/24 10/11/24 Rx azelastine 137 mcg (0.1 %) nasal 1 spray intranasal Q12H 30 days 06/17/24 10/11/24 Rx spray #30 mL fluticasone propionate 50 1 spray intranasal DAILY 30 days 06/17/24 10/11/24 Rx mcg/actuation nasal #16 grams spray,suspension pregabalin 100 mg capsule (Lyrica) 100 mg PO BID #180 caps 06/22/24 10/11/24 Rx furosemide 40 mg tablet (Lasix) 40 mg PO DAILY #90 tabs 07/01/24 10/11/24 Rx levothyroxine 100 mcg tablet 100 mcg PO DAILY #90 tabs 07/12/24 10/11/24 Rx (Euthyrox) folic acid 1 mg tablet 1 mg PO DAILY #90 tabs 08/01/24 10/11/24 Rx metoprolol succinate 50 mg See Rx Instructions .Route 08/01/24 10/11/24 Rx tablet,extended release 24 hr .COMPLEX #30 tabs omeprazole 40 mg capsule,delayed 40 mg PO DAILY #90 caps 08/01/24 10/11/24 Rx release semaglutide 2 mg/dose (8 mg/3 mL) See Rx Instructions .Route 08/01/24 10/11/24 Rx subcutaneous pen injector (Ozempic) .COMPLEX #3 mL duloxetine 60 mg capsule,delayed See Rx Instructions .Route 08/22/24 10/11/24 Rx release .COMPLEX #60 ea alendronate 70 mg tablet 70 mg PO WEEKLY #12 tabs 08/29/24 10/11/24 Rx metformin 1,000 mg tablet See Rx Instructions .Route 08/30/24 10/11/24 Rx .COMPLEX #180 tabs alprazolam 0.5 mg tablet (Xanax) 0.5 mg PO BID PRN Anxiety #60 tabs 09/05/24 10/11/24 Rx pioglitazone 30 mg tablet 30 mg PO DAILY #100 tabs 09/05/24 10/11/24 Rx trazodone 100 mg tablet 100 mg PO .COMPLEX PRN sleep #180 09/30/24 10/11/24 Rx tabs hydrocodone 5 mg-acetaminophen 325 1 tablet PO TID PRN Pain #60 tabs 10/18/24 Rx mg tablet clindamycin HCl 300 mg capsule 300 mg PO Q8H 7 days #21 caps 10/22/24 Rx (Cleocin HCl) tobramycin 0.3 % eye drops 1 drp LEFT EYE Q4H 7 days #5 mL 10/22/24 Rx Patient hx anesthesia problems: none Family hx anesthesia problems: none Results Review: All pre-operative results and documents have been reviewed as part of the pre-operative evaluation. [facility] Past Medical History Medical History BMI 32.0-32.9,adult BMI 33.0-33.9,adult Chronic sphenoidal sinusitis Chronic maxillary sinusitis Sinus headache BMI 31.0-31.9,adult Hip pain, bilateral Arthritis of left knee Degenerative joint disease (DJD) of lumbar spine COVID-19 Bilateral hand pain Renal insufficiency Lumbar and sacral arthritis Osteoarthritis of left knee Screening for breast cancer Mass of both axillae Bilateral shoulder region arthritis Bilateral shoulder pain Hemoglobin A1c less than 7.0% 6.9 on 04/05/19 BMI 38.0-38.9,adult Stroke Hypertension Fibromyalgia (~2009) Gastric ulcer without hemorrhage or perforation Adhesive capsulitis of right shoulder Generalized osteoarthritis of multiple sites (~2009) Seronegative rheumatoid arthritis of both hands (~2014) Anemia Anxiety Arthritis Depression Diabetes a1c=6.9 (04/05/19) Surgical History Surgical History History of knee surgery 12/2013 Dr. Peña Hx of cholecystectomy History of carpal tunnel release H/O cataract extraction H/O elbow surgery H/O: hysterectomy History of hip replacement 03/2018 Family History Family History Father Hypertension Family history of diabetes mellitus in first degree relative Diabetes mellitus Carcinoma of colon Mother Hypertension Carcinoma of colon Sibling Carcinoma of colon Grandparent Cerebrovascular accident Other Family history of cardiovascular disease Family history of malignant neoplasm Social History Social History (Updated 09/29/24 @ 13:18 by Trinity Landon [facility]) Smoking packs per day: 0.25 Smoking cigarettes per day: 5.0 Years smoked: 15 Smoking pack-years: 3.75 Smoking status: Former smoker Tobacco type: cigarettes Second hand tobacco smoke exposure: Yes Smoking end date: 08/23/84 Alcohol intake: former Substance use: never Substance use type: does not use Do You Feel Safe in your Home?: Yes Lack of Transportation: No Lack of Food: Never True Current Housing: I Have Housing Concerned About Future Housing: No Difficulty Paying Gas/Electric Bills: No Difficulty Paying for Meds: No Currently Unemployed: No Education: Master's Degree or Higher Difficulty w/ Childcare or Family Care: No Living arrangements: alone Additional living arrangements comments: Occupation/Education: 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[employer] Gender identity (if verbalized by the patient): Female Sexual Orientation (if Verbalized by the Patient): Straight or Heterosexual Spiritual care concerns: No Anes - Eval Final PreProcedure Day of Procedure 10/25/24 11:30 Patient weight: obese Heart: regular rate and rhythm Lungs: clear to auscultation Airway: Mallampati scale class II Neurological: alert and oriented Last oral intake: >/= 8 hours ASA classification: III Emergent: no Anesthetic plan: proceed Anesthesia type and monitoring: general GIVS and standard monitoring Results Review: All pre-operative results and documents have been reviewed as part of the pre-operative evaluation. Informed Consent: The patient's anesthetic plan and its attendant risks and benefits were discussed with the patient/family/POA. Questions were solicited and answers provided to the satisfaction of the patient/family/POA.
[2024-10-25 11:38] VITALS: BP 120/88; PULSE 90; RESP 18; TEMP 36.3; O2SAT 97
[2024-10-25] MEDS: LACTATED RINGERS 1,000 ML 150 ML IV CONT (11:55)
--- NOTE | 2024-10-25 13:00 | PM.HPGS ---
History of Present Illness History of Present Illness Consent: Risks, benefits, and alternatives have been discussed and questions answered. Patient agrees to proceed with procedure. Chief complaint: Noninfective gastroenteritis and colitis, unspecif Narrative: Tereza Jerome is a 79 year old female with loose stool and strong family history of colon cancer Review of Systems Review of Systems: All systems reviewed & are unremarkable except as noted in HPI and below PMFSH Past Medical History Medical History BMI 32.0-32.9,adult BMI 33.0-33.9,adult Chronic sphenoidal sinusitis Chronic maxillary sinusitis Sinus headache BMI 31.0-31.9,adult Hip pain, bilateral Arthritis of left knee Degenerative joint disease (DJD) of lumbar spine COVID-19 Bilateral hand pain Renal insufficiency Lumbar and sacral arthritis Osteoarthritis of left knee Screening for breast cancer Mass of both axillae Bilateral shoulder region arthritis Bilateral shoulder pain Hemoglobin A1c less than 7.0% 6.9 on 04/05/19 BMI 38.0-38.9,adult Stroke Hypertension Fibromyalgia (~2009) Gastric ulcer without hemorrhage or perforation Adhesive capsulitis of right shoulder Generalized osteoarthritis of multiple sites (~2009) Seronegative rheumatoid arthritis of both hands (~2014) Anemia Anxiety Arthritis Depression Diabetes a1c=6.9 (04/05/19) Surgical History Surgical History History of knee surgery 12/2013 Dr. Peña Hx of cholecystectomy History of carpal tunnel release H/O cataract extraction H/O elbow surgery H/O: hysterectomy History of hip replacement 03/2018 Family History Family History Father Hypertension Family history of diabetes mellitus in first degree relative Diabetes mellitus Carcinoma of colon Mother Hypertension Carcinoma of colon Sibling Carcinoma of colon Grandparent Cerebrovascular accident Other Family history of cardiovascular disease Family history of malignant neoplasm Social History Social History (Updated 09/29/24 @ 13:18 by Trinity Landon [facility]) Smoking packs per day: 0.25 Smoking cigarettes per day: 5.0 Years smoked: 15 Smoking pack-years: 3.75 Smoking status: Former smoker Tobacco type: cigarettes Second hand tobacco smoke exposure: Yes Smoking end date: 08/23/84 Alcohol intake: former Substance use: never Substance use type: does not use Do You Feel Safe in your Home?: Yes Lack of Transportation: No Lack of Food: Never True Current Housing: I Have Housing Concerned About Future Housing: No Difficulty Paying Gas/Electric Bills: No Difficulty Paying for Meds: No Currently Unemployed: No Education: Master's Degree or Higher Difficulty w/ Childcare or Family Care: No Living arrangements: alone Additional living arrangements comments: Occupation/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 (if verbalized by the patient): Female Sexual Orientation (if Verbalized by the Patient): Straight or Heterosexual Spiritual care concerns: No Meds Home Medications and Allergies Home Medications ?Medication ?Instructions ?Recorded ?Confirmed ?Type ferrous sulfate 325 mg (65 mg 325 mg PO TID 10/25/19 10/25/24 History iron) tablet calcium carbonate 500 mg PO DAILY #90 tabs 06/06/20 10/25/24 Rx cholecalciferol (vitamin D3) 50 50 mcg PO DAILY #90 tabs 06/06/20 10/25/24 Rx mcg (2,000 unit) tablet ascorbic acid (vitamin C) 1,000 mg 1 g PO BID 08/13/22 10/25/24 History capsule aspirin 81 mg tablet 81 mg PO DAILY 08/13/22 10/25/24 History Held on 12/02/23. Instructions: Resume on 12/09/23. cetirizine 10 mg tablet 10 mg PO DAILY PRN Allergy Symptoms 08/13/22 10/25/24 History flash glucose sensor (FreeStyle #1 ea 09/12/22 09/15/24 Rx Tiera 2 Sensor kit) flash glucose scanning reader #1 ea 09/30/22 09/15/24 Rx (FreeStyle Tiera 2 [place]) cyanocobalamin (vitamin B-12) 500 500 mcg PO 3XW 12/15/22 10/25/24 History mcg tablet upadacitinib 15 mg tablet,extended 15 mg PO DAILY #30 tabs 12/29/22 10/25/24 Rx release 24 hr (Rinvoq) magnesium oxide 400 mg PO DAILY 12/31/22 10/25/24 History leflunomide 10 mg tablet 10 mg PO DAILY #90 tabs 06/26/23 10/25/24 Rx atorvastatin 10 mg tablet 10 mg PO DAILY #100 tabs 01/13/24 10/25/24 Rx potassium chloride 20 mEq 20 meq PO BID #180 tabs 03/16/24 10/25/24 Rx tablet,extended release ondansetron HCl 4 mg tablet 4 mg PO Q6H PRN Nausea #60 tabs 06/06/24 10/11/24 Rx losartan 100 mg tablet 100 mg PO DAILY #100 tabs 06/09/24 10/25/24 Rx azelastine 137 mcg (0.1 %) nasal 1 spray intranasal Q12H 30 days 06/17/24 10/25/24 Rx spray #30 mL fluticasone propionate 50 1 spray intranasal DAILY 30 days 06/17/24 10/25/24 Rx mcg/actuation nasal #16 grams spray,suspension pregabalin 100 mg capsule (Lyrica) 100 mg PO BID #180 caps 06/22/24 10/25/24 Rx furosemide 40 mg tablet (Lasix) 40 mg PO DAILY #90 tabs 07/01/24 10/25/24 Rx levothyroxine 100 mcg tablet 100 mcg PO DAILY #90 tabs 07/12/24 10/25/24 Rx (Euthyrox) folic acid 1 mg tablet 1 mg PO DAILY #90 tabs 08/01/24 10/25/24 Rx metoprolol succinate 50 mg See Rx Instructions .Route 08/01/24 10/25/24 Rx tablet,extended release 24 hr .COMPLEX #30 tabs omeprazole 40 mg capsule,delayed 40 mg PO DAILY #90 caps 08/01/24 10/25/24 Rx release semaglutide 2 mg/dose (8 mg/3 mL) See Rx Instructions .Route 08/01/24 10/25/24 Rx subcutaneous pen injector (Ozempic) .COMPLEX #3 mL duloxetine 60 mg capsule,delayed See Rx Instructions .Route 08/22/24 10/25/24 Rx release .COMPLEX #60 ea alendronate 70 mg tablet 70 mg PO WEEKLY #12 tabs 08/29/24 10/25/24 Rx metformin 1,000 mg tablet See Rx Instructions .Route 08/30/24 10/25/24 Rx .COMPLEX #180 tabs alprazolam 0.5 mg tablet (Xanax) 0.5 mg PO BID PRN Anxiety #60 tabs 09/05/24 10/25/24 Rx pioglitazone 30 mg tablet 30 mg PO DAILY #100 tabs 09/05/24 10/25/24 Rx trazodone 100 mg tablet 100 mg PO .COMPLEX PRN sleep #180 09/30/24 10/25/24 Rx tabs hydrocodone 5 mg-acetaminophen 325 1 tablet PO TID PRN Pain #60 tabs 10/18/24 10/25/24 Rx mg tablet clindamycin HCl 300 mg capsule 300 mg PO Q8H 7 days #21 caps 10/22/24 10/25/24 Rx (Cleocin HCl) tobramycin 0.3 % eye drops 1 drp LEFT EYE Q4H 7 days #5 mL 10/22/24 10/25/24 Rx Allergies Allergy/AdvReac Type Severity Reaction Status Date / Time Penicillins Allergy Unknown Rash Verified 10/25/24 11:29 cephalexin Allergy Rash Verified 10/25/24 11:29 erythromycin base AdvReac Unknown Diarrhea Verified 10/25/24 11:29 Vital Signs Vital Signs - 24 hr 10/25/24 11:38 Temperature 97.3 F L Pulse Rate 90 Respiratory Rate 18 Blood Pressure 120/88 Pulse Oximetry 97 Oxygen Delivery Room Air Exam Const: General: comfortable and no acute distress HENMT: Face/Nose/Sinus: Normal nares present Eyes: General: appearance normal, both eyes and all related structures Neck: Neck: no JVD Resp: Auscultation: clear to auscultation bilaterally Cardio: Rate: regular rate Rhythm: regular rhythm GI: Inspection: non-distended GI Palp: Yes Soft to palpation Skin: General skin exam: normal color Neuro: Speech: normal speech Extrem: General: normal to inspection Psych: Mental Status: mental status grossly normal Assessment and Plan Assessment and plan (1) Chronic diarrhea: Code(s): K52.9 - Noninfective gastroenteritis and colitis, unspecified Status: Acute Assessment and Plan: egd to check for cealic (2) Family history of colon cancer: Code(s): Z80.0 - Family history of malignant neoplasm of digestive organs Status: Acute Assessment and Plan: colonoscopy
--- NOTE | 2024-10-25 13:02 | S_PTH ---
PATIENT: Tereza Jerome LOC: [facility]#:[id number] AGE/SX: 79/F ROOM: RE10/25/[address]: Yvon Brennan MD : 1945 BED: DIS: 10/25/2024 SPEC #: [id number] RECD: 10/25/24 13:52 STATUS: CAROLYNE REDino #: [id number] CAITLIN: 10/25/24 13:[address]: Yvon Brennan DEPT: [facility] Surgical RECD BY: Brisa Matute ENTERED: 10/25/24 13:52 SP TYPE: Surgical OTHR DR: Sid Wright DO Tissues: A - Small Bowel Bx B - Gastric Biopsy C - Colon Biopsy Procedures: Hematoxylin and Eosin Stain Gross and Microscopic Level 4
--- NOTE | 2024-10-25 13:05 | SUR.OPER ---
EGD ended at 1300, colon began at 1305
[2024-10-25 13:18] VITALS: BP 113/57; PULSE 85; RESP 26; O2SAT 97
[2024-10-25 13:28] VITALS: BP 119/59; BP 145/65; PULSE 79; PULSE 82; RESP 18; RESP 23; O2SAT 95
== END 2024-10-25 13:50 | disposition home or self-care (01) ==
PROVIDERS: PCP Internal Medicine; Referring Provider Nurse Practitioner Family; Visit Provider Internal Medicine Gastroenterology
PROC: 0DJ08ZZ Inspection of Upper Intestinal Tract, Via Natural or Artificial Opening Endoscopic (ICD-10-PCS; CPT 45378; principal; 2024-10-25 12:30)
DX: K52.9 Noninfective gastroenteritis and colitis, unspecified (principal); K64.8 Other hemorrhoids; K57.30 Diverticulosis of large intestine without perforation or abscess without bleeding; K31.89 Other diseases of stomach and duodenum; I10 Essential (primary) hypertension; M79.7 Fibromyalgia; D64.9 Anemia, unspecified; F41.9 Anxiety disorder, unspecified; F32.A Depression, unspecified; E11.9 Type 2 diabetes mellitus without complications; M17.12 Unilateral primary osteoarthritis, left knee; M19.012 Primary osteoarthritis, left shoulder; M19.011 Primary osteoarthritis, right shoulder; M06.042 Rheumatoid arthritis without rheumatoid factor, left hand; M06.041 Rheumatoid arthritis without rheumatoid factor, right hand; J32.3 Chronic sphenoidal sinusitis; J32.0 Chronic maxillary sinusitis; M47.896 Other spondylosis, lumbar region; N28.9 Disorder of kidney and ureter, unspecified; M47.898 Other spondylosis, sacral and sacrococcygeal region; E66.9 Obesity, unspecified; Z68.32 Body mass index [BMI] 32.0-32.9, adult; Z79.82 Long term (current) use of aspirin; Z79.85 Long-term (current) use of injectable non-insulin antidiabetic drugs; Z79.83 Long term (current) use of bisphosphonates; Z79.84 Long term (current) use of oral hypoglycemic drugs; Z79.891 Long term (current) use of opiate analgesic; Z98.890 Other specified postprocedural states; Z90.49 Acquired absence of other specified parts of digestive tract; Z87.891 Personal history of nicotine dependence; Z87.19 Personal history of other diseases of the digestive system; Z86.73 Personal history of transient ischemic attack (TIA), and cerebral infarction without residual deficits; Z80.0 Family history of malignant neoplasm of digestive organs; Z82.49 Family history of ischemic heart disease and other diseases of the circulatory system
CPT/HCPCS: 45380; 82948; 88305; J2003; J2704; J7120

== ENCOUNTER 2024-11-25 15:42 | Outpatient (CLI) | payer MEDICARE, SELFPAY ==
--- NOTE | ~2024-11-25 | XR_ITS ---
EXAMINATION: XR hip RT min 2V, 11/25/2024 16:07 CDT HISTORY: M54.16 - Radiculopathy, lumbar region COMPARISON: No comparisons available. Findings: No acute fracture or malalignment. Right arthroplasty intact Soft tissues unremarkable. Impression: No acute fracture or malalignment. Reviewed, dictated and finalized at location P. Impression: No acute fracture or malalignment.
== END 2024-11-25 15:43 | disposition home or self-care (01) ==
LOC: MICIMG 15:43
PROVIDERS: PCP Nurse Practitioner; Visit Provider Neurological Surgery
DX: M54.16 Radiculopathy, lumbar region (principal)
CPT/HCPCS: 73502

== ENCOUNTER 2024-11-30 14:46 | Outpatient (CLI) | payer MEDICARE, SELFPAY ==
--- NOTE | ~2024-11-30 | CT_ITS ---
EXAMINATION: CT lumbar spine wo con DATE: 11/30/2024 15:07 INDICATION: Radiculopathy, lumbar region. TECHNIQUE: Computed tomography (CT) of the lumbar spine was performed without intravenous contrast. Automated exposure control and iterative reconstruction technique were employed. The dose-length product was 839.59 mGy-cm. COMPARISON: None FINDINGS: There are epidural electrodes in thoracic spine. There is 9 degrees dextrocurvature of thoracolumbar spine. There is 3 mm anterolisthesis of L2 on L3, L3 on L4, and L4 on L5. Vertebral body heights are normal. There is severely decreased disc height at L1-L2 and L2-L3, moderately decreased disc height at L3-L4, mildly decreased disc height at L4-L5, and moderately decreased disc height at L5-S1. There is a right hip arthroplasty. The following disc levels are specifically discussed: L1-L2: The disc is bulging. There is severe bilateral facet joint osteoarthritis. There is mild bilateral neural foraminal stenosis. There is mild central canal stenosis. L2-L3: The disc is bulging. There is severe bilateral facet joint osteoarthritis. There is mild right and moderate left neural foraminal stenosis. There is mild central canal stenosis. L3-L4: The disc is bulging. There is severe bilateral facet joint osteoarthritis. There is mild bilateral neural foraminal stenosis. There is mild central canal stenosis. L4-L5: There is a right foraminal protrusion. There is ankylosis of the facet joints with mild hypertrophy. There is mild right neural foraminal stenosis. There is no central canal stenosis. L5-S1: The disc is bulging. There is severe bilateral facet joint osteoarthritis. There is moderate right and mild left neural foraminal stenosis. There is mild central canal stenosis. IMPRESSION: 1. Severe lumbar spondylosis. Reviewed, dictated and finalized at location E.
== END 2024-11-30 14:47 | disposition home or self-care (01) ==
LOC: MICIMG 14:47
PROVIDERS: PCP Nurse Practitioner; Visit Provider Neurological Surgery
DX: M47.816 Spondylosis without myelopathy or radiculopathy, lumbar region (principal)
CPT/HCPCS: 72131

== ENCOUNTER 2024-12-07 15:03 | Outpatient (CLI) | payer MEDICARE, SELFPAY ==
--- NOTE | ~2024-12-07 | XR_ITS ---
EXAMINATION: XR shoulder RT min 2V, 12/07/2024 15:20 CDT HISTORY: SUPERIOR RT SHOULDER PAIN RADIATES IN NECK AND ARM x6 MONTHS COMPARISON: No comparisons available. Findings: No acute fracture or malalignment. Severe degenerative changes Soft tissues unremarkable. Impression: No acute fracture or malalignment. Reviewed, dictated and finalized at location P. Impression: No acute fracture or malalignment.
--- NOTE | ~2024-12-07 | US_ITS ---
EXAMINATION: US soft tissue UE RT DATE: 12/07/2024 15:23 INDICATION: 2 palpable abnormalities at the right shoulder and upper arm. TECHNIQUE: Multiple grayscale and Doppler ultrasound images of the region of concern at the right shoulder and upper arm were obtained. COMPARISON: None FINDINGS: 1 of the probable abnormalities corresponds to a 1.8 x 1.8 x 1.3 cm well-defined heterogeneously hypoechoic subdermal nodule with increased posterior acoustic enhancement. There is no internal vascular flow or surrounding hyperemia on color Doppler. There is a subtle tiny hypoechoic tract extending from the lesion to the skin surface. Constellation of findings would be most consistent with an epidermoid/sebaceous cyst. The second palpable abnormality of concern corresponds to a 3.0 x 1.6 x 2.6 cm complex cystic lesion with multilobulated anechoic cystic components solid hypoechoic components. This appears to be positioned along the surface of a hyperechoic shadowing bone. No evident internal vascular flow or surrounding hyperemia on color Doppler. On one of the cine images there appears to be extension towards what appears to be likely the right acromioclavicular joint which suggests a ganglion cyst. IMPRESSION: 1. 1.8 cm likely epidermoid/sebaceous cyst accounting for the palpable abnormalities of concern. 2. 3.0 x 1.6 x 2.6 similar complex cystic lesion which appears to arise from what appears to be the right acromioclavicular joint suggesting a ganglion cyst with associated internal debris or synovitis. Could consider pre and postcontrast MRI for more definitive determination. Reviewed, dictated and finalized at location A. IMPRESSION: 1. 1.8 cm likely epidermoid/sebaceous cyst accounting for the palpable abnormal ities of concern. 2. 3.0 x 1.6 x 2.6 similar complex cystic lesion which appears to arise from wh at appears to be the right acromioclavicular joint suggesting a ganglion cyst w ith associated internal debris or synovitis. Could consider pre and postcontras t MRI for more definitive determination.
== END 2024-12-07 15:04 | disposition home or self-care (01) ==
LOC: MICIMG 15:04
PROVIDERS: PCP Nurse Practitioner; Visit Provider Nurse Practitioner
DX: M25.511 Pain in right shoulder (principal); R22.31 Localized swelling, mass and lump, right upper limb
CPT/HCPCS: 73030; 76882

== ENCOUNTER 2025-01-03 13:23 | Outpatient (CLI) | payer MEDICARE, SELFPAY ==
--- NOTE | ~2025-01-03 | MM_ITS ---
EXAMINATION: MM screening carisa BI w [facility] HISTORY: Screening TECHNIQUE: Craniocaudal and mediolateral oblique 3-D tomosynthesis images were obtained and synthetic 2-D images were generated. CAD analysis was submitted and interpreted. COMPARISON: Comparison to multiple prior studies sequentially, with oldest reviewed study dated 11/03/2016. BREAST PARENCHYMAL COMPOSITION: Not dense: There are scattered areas of fibroglandular density. FINDINGS: There is no evidence of suspicious mass, calcification, or architectural distortion to suggest malignancy in either breast. There has been no suspicious interval change. IMPRESSION: 1. No mammographic evidence of malignancy. 2. Recommend routine screening mammography in one year. BI-RADS Category 1: Negative Reviewed, dictated and finalized at location B. [employer]
== END 2025-01-03 13:24 | disposition home or self-care (01) ==
LOC: MICIMG 13:24
PROVIDERS: PCP Nurse Practitioner; Visit Provider Nurse Practitioner
DX: Z12.31 Encounter for screening mammogram for malignant neoplasm of breast (principal)
CPT/HCPCS: 77063; 77067